=== PATIENT | male | born 1955 | race Caucasian/White ===

== ENCOUNTER 2018-09-12 16:54 | Inpatient (IN) ==
[2018-09-12] MEDS ORDERED: FAMOTIDINE 20MG/5ML IV PUSH IV STA (17:09)
[2018-09-12] MEDS ORDERED: METOCLOPRAMIDE HCL INJ 5 MG/ML 2 ML VIAL IV STA (17:09)
[2018-09-12] MEDS ORDERED: GI COCKTAIL ED USE PO ONE (17:09)
[2018-09-12] MEDS ORDERED: SODIUM CHLORIDE 0.9% 1000ML 1,000 ML IV SCH (17:15)
--- NOTE | 2018-09-12 17:23 | Emergency Department Note ---
Entered by Nigel Vazquez acting as a scribe for History of Present Illness General Chief complaint: Chest Pain Stated complaint: chest pain Time Seen by Provider: 09/12/18 17:05 Source: patient, family and EMS History of Present Illness Provider complaint: Chest pain Onset (ago): hour(s) (Just prior to arrival) Location: chest Radiation: non-radiation Pain Consistency: + constant Maximum Pain Intensity: 9 Current Pain Intensity: 10 Quality: + other (Pressure) Relieved By: + none Exacerbated By: + none Associated symptoms: + diaphoresis The patient is a 62 year old male who presents to the Emergency Room via EMS with complaints of constant left sided chest pain that started just prior to arrival. The patient describes the pain as a pressure and rates it 10/10. Per the nursing note, the patient was at the [employer] and had about 5 beers when suddenly he developed severe chest pain and slumped over at the bar. The pain does not radiate anywhere. Per EMS, when they first arrived at the [facility] the patient was very diaphoretic. The patient received one dose of Nitroglycerin and one 81mg Aspirin while en route with EMS which did slightly help relieve his pain. The patient notes he has had these symptoms in the past, which ended with getting his gallbladder removed. He states he felt fine prior to going to the [facility] and has not had any recent illnesses. The patient has no history of reflux or myocardial infarctions. Per his , he does drink alcohol regular an d chews tobacco. Home Medications Home Medications Medication Instructions Recorded Confirmed Type acetaminophen [Tylenol Extra 100 mg PO TID PRN 09/12/18 09/12/18 History Strength] atorvastatin 10 mg PO DAILY 09/12/18 09/12/18 History fluoxetine [Prozac] 40 mg PO DAILY 09/12/18 09/12/18 History lisinopril [Zestril] 20 mg PO DAILY 09/12/18 09/12/18 History metoprolol succinate [Toprol XL] 50 mg PO DAILY 09/12/18 09/12/18 History Allergies Allergy/AdvReac Type Severity Reaction Status Date / Time No Known Allergies Allergy Mild Verified 09/12/18 17:39 Past Med/Surg History Medical History Alcohol use (Chronic) Tobacco use (Chronic) Depression (Chronic) HTN (hypertension) (Chronic) Dyslipidemia (Chronic) Surgical History History of back surgery (Chronic) S/P laparoscopic cholecystectomy (Chronic) S/P tonsillectomy (Chronic) H/O vasectomy (Chronic) H/O arthroscopy of knee (Chronic) Family History Uncle Coronary heart disease Father Stroke Social History Preferred Language: [place] Communication Ability: Effective System Support Technician Required: No Beliefs That Will Affect Care: None Current Living Situation: Spouse Feels Safe at Home: Yes Safety Concerns: Feels Safe At This Time Smoking Status: Never smoker Tobacco Type: smokeless tobacco Do You Dip or Chew Tobacco: Yes (2 CANS / WEEK) Hx Alcohol Use: Yes Alcohol type: beer Hx Substance Use: Yes substance use type: marijuana Substance Use Type Other:: OCCASIONALLY Last Used Substance: Days (ago) Review of Systems See HPI for pertinent positives & negatives. and A total of 10 systems reviewed and were otherwise negative Physical Exam Vital Signs Vital Signs - 24 hr 09/12/18 16:56 09/12/18 17:01 09/12/18 17:05 Temperature 36.5 C Temperature Source Oral Sepsis Recent Fever Within 48 Hours No Sepsis Action Taken by Nursing No Action Required Pulse Rate 58 L 57 L 62 Pulse Rate [Finger] Pulse Rate from SpO2 Sensor 57 L 60 Pulse Rhythm [Finger] Pulse Strength [Finger] Respiratory Rate 17 22 20 Respiratory Effort / Characteristics Respiratory Depth Respiratory Pattern Blood Pressure 123/73 117/70 Blood Pressure [Left Arm] Blood Pressure Mean 89 85 Blood Pressure Mean [Left Arm] Blood Pressure Position [Left Arm] Pulse Oximetry 100 100 100 Oxygen Delivery Method Room Air 09/12/18 17:06 09/12/18 17:15 09/12/18 17:26 Temperature Temperature Source Sepsis Recent Fever Within 48 Hours Sepsis Action Taken by Nursing Pulse Rate 55 L 59 L Pulse Rate [Finger] Pulse Rate from SpO2 Sensor Pulse Rhythm [Finger] Pulse Strength [Finger] Respiratory Rate 21 Respiratory Effort / Characteristics Respiratory Depth Respiratory Pattern Blood Pressure 125/74 Blood Pressure [Left Arm] Blood Pressure Mean 91 Blood Pressure Mean [Left Arm] Blood Pressure Position [Left Arm] Pulse Oximetry 99 100 Oxygen Delivery Method Room Air Room Air 09/12/18 17:27 09/12/18 17:30 09/12/18 17:31 Temperature Temperature Source Sepsis Recent Fever Within 48 Hours Sepsis Action Taken by Nursing Pulse Rate 55 L 56 L Pulse Rate [Finger] 59 L Pulse Rate from SpO2 Sensor Pulse Rhythm [Finger] Pulse Strength [Finger] Respiratory Rate 17 16 15 Respiratory Effort / Characteristics Respiratory Depth Respiratory Pattern Blood Pressure 133/81 Blood Pressure [Left Arm] 125/74 Blood Pressure Mean 98 Blood Pressure Mean [Left Arm] 91 Blood Pressure Position [Left Arm] Pulse Oximetry 99 Oxygen Delivery Method Room Air 09/12/18 17:45 09/12/18 17:46 09/12/18 18:00 Temperature Temperature Source Sepsis Recent Fever Within 48 Hours Sepsis Action Taken by Nursing Pulse Rate 57 L 58 L 57 L Pulse Rate [Finger] Pulse Rate from SpO2 Sensor Pulse Rhythm [Finger] Pulse Strength [Finger] Respiratory Rate 18 13 15 Respiratory Effort / Characteristics Respiratory Depth Respiratory Pattern Blood Pressure 123/73 112/69 Blood Pressure [Left Arm] Blood Pressure Mean 89 83 Blood Pressure Mean [Left Arm] Blood Pressure Position [Left Arm] Pulse Oximetry Oxygen Delivery Method 09/12/18 18:01 09/12/18 18:15 09/12/18 18:16 Temperature Temperature Source Sepsis Recent Fever Within 48 Hours Sepsis Action Taken by Nursing Pulse Rate 58 L 59 L 57 L Pulse Rate [Finger] Pulse Rate from SpO2 Sensor Pulse Rhythm [Finger] Pulse Strength [Finger] Respiratory Rate 15 13 11 L Respiratory Effort / Characteristics Respiratory Depth Respiratory Pattern Blood Pressure 120/73 Blood Pressure [Left Arm] Blood Pressure Mean 88 Blood Pressure Mean [Left Arm] Blood Pressure Position [Left Arm] Pulse Oximetry Oxygen Delivery Method 09/12/18 18:30 09/12/18 18:31 09/12/18 18:45 Temperature Temperature Source Sepsis Recent Fever Within 48 Hours Sepsis Action Taken by Nursing Pulse Rate 56 L 57 L 57 L Pulse Rate [Finger] Pulse Rate from SpO2 Sensor Pulse Rhythm [Finger] Pulse Strength [Finger] Respiratory Rate 10 L 13 14 Respiratory Effort / Characteristics Respiratory Depth Respiratory Pattern Blood Pressure 111/71 105/70 Blood Pressure [Left Arm] Blood Pressure Mean 84 81 Blood Pressure Mean [Left Arm] Blood Pressure Position [Left Arm] Pulse Oximetry Oxygen Delivery Method 09/12/18 19:00 09/12/18 19:01 09/12/18 19:15 Temperature Temperature Source Sepsis Recent Fever Within 48 Hours Sepsis Action Taken by Nursing Pulse Rate 62 58 L 60 Pulse Rate [Finger] Pulse Rate from SpO2 Sensor 61 58 L 61 Pulse Rhythm [Finger] Pulse Strength [Finger] Respiratory Rate 14 14 22 Respiratory Effort / Characteristics Respiratory Depth Respiratory Pattern Blood Pressure 120/73 120/76 Blood Pressure [Left Arm] Blood Pressure Mean 88 90 Blood Pressure Mean [Left Arm] Blood Pressure Position [Left Arm] Pulse Oximetry 98 98 99 Oxygen Delivery Method 09/12/18 19:30 09/12/18 19:31 09/12/18 20:00 Temperature Temperature Source Sepsis Recent Fever Within 48 Hours Sepsis Action Taken by Nursing Pulse Rate 62 64 59 L Pulse Rate [Finger] Pulse Rate from SpO2 Sensor Pulse Rhythm [Finger] Pulse Strength [Finger] Respiratory Rate 23 19 22 Respiratory Effort / Characteristics Respiratory Depth Respiratory Pattern Blood Pressure 129/77 Blood Pressure [Left Arm] Blood Pressure Mean 94 Blood Pressure Mean [Left Arm] Blood Pressure Position [Left Arm] Pulse Oximetry Oxygen Delivery Method 09/12/18 20:30 09/12/18 20:48 09/12/18 21:05 Temperature 36.7 C Temperature Source Oral Sepsis Recent Fever Within 48 Hours Sepsis Action Taken by Nursing Pulse Rate 58 L 58 L Pulse Rate [Finger] 57 L Pulse Rate from SpO2 Sensor 60 Pulse Rhythm [Finger] Regular Pulse Strength [Finger] Normal Respiratory Rate 15 16 15 Respiratory Effort / Characteristics Non-Labored Spontaneous Respiratory Depth Normal Respiratory Pattern Regular Blood Pressure 129/77 Blood Pressure [Left Arm] 148/82 H Blood Pressure Mean Blood Pressure Mean [Left Arm] 104 Blood Pressure Position [Left Arm] Sitting Pulse Oximetry 97 98 97 Oxygen Delivery Method Room Air Room Air 09/12/18 22:00 09/12/18 22:21 09/13/18 03:59 Temperature 36.7 C Temperature Source Oral Sepsis Recent Fever Within 48 Hours Sepsis Action Taken by Nursing Pulse Rate 58 L 72 Pulse Rate [Finger] 58 L Pulse Rate from SpO2 Sensor Pulse Rhythm [Finger] Pulse Strength [Finger] Respiratory Rate 18 Respiratory Effort / Characteristics Respiratory Depth Respiratory Pattern Blood Pressure Blood Pressure [Left Arm] 152/88 H Blood Pressure Mean Blood Pressure Mean [Left Arm] 109 Blood Pressure Position [Left Arm] Pulse Oximetry 96 Oxygen Delivery Method Room Air GENERAL: Awake, alert, uncomfortable-appearing, in no distress HENT: Normocephalic, atraumatic. Oropharynx with dry mucous membranes and otherwise unremarkable. EYES: Normal conjunctiva. Sclera non-icteric. NECK: Supple. No nuchal rigidity. FROM. No JVD. RESPIRATORY: Clear to auscultation. CARDIAC: Regular rate, normal rhythm. Extremities warm and well perfused. Pulses equal. ABDOMEN: Soft, non-distended. Mild epigastric tenderness. No rebound or guarding. No masses. RECTAL: Deferred. MUSCULOSKELETAL: Chest examination reveals no tenderness. The back is symmetrical on inspection without obvious abnormality. There is no CVA tenderness to palpation. No joint edema. LOWER EXTREMITIES: Calves are equal size bilaterally and non-tender. No edema. No discoloration. NEURO: Normal sensorium. No sensory or motor deficits noted. SKIN: No rash or jaundice noted. Course 170: The patient was evaluated in room C02B, and a complete history and physical examination were performed. 7: I reevaluated the patient and he is feeling much better. 1905: Dr. Rosario Fajardo Hospitalist was made aware of the patient and he will be accepting him for further evaluation. Consultations Consultation #1: Dr. Rosario Fajardo Hospitalist was made aware of the patient and he will be accepting him for further evaluation. Time: 19:05 Administered Medications Gabapentin (Neurontin) 600 mg PO Q6H SOPHIA Stop: 09/13/18 09:30 Last Admin: 09/13/18 03:17 Dose: 600 mg Documented by: [id number] Potassium Chloride/Sodium Chloride (Normal Saline W/20 Meq Kcl) 20 meq in 1,000 mls @ 75 mls/hr IV .[id number] STA Stop: 09/13/18 10:47 Last Admin: 09/12/18 21:59 Dose: 75 mls/hr Documented by: [id number] Morphine Sulfate (Morphine Sulfate) 2 mg IV Q4H PRN PRN Reason: Pain Stop: 09/26/18 21:27 Last Admin: 09/13/18 03:20 Dose: 2 mg Documented by: [id number] Oxycodone HCl (Roxicodone Immediate Rel) 5 mg PO Q4H PRN PRN Reason: Pain Stop: 09/26/18 21:27 Last Admin: 09/13/18 01:54 Dose: 5 mg Documented by: [id number] Admin: 09/12/18 21:58 Dose: 5 mg Documented by: [id number] Discontinued Medications Al Hydrox/Mg Hydrox/Simethicone () 1 dose PO ONE ONE Stop: 09/12/18 17:10 Last Admin: 09/12/18 17:23 Dose: 1 dose Documented by: [id number] Famotidine (Pepcid 20mg Iv Push) 20 mg IV ONE STA Stop: 09/12/18 17:10 Last Admin: 09/12/18 17:23 Dose: 20 mg Documented by: [id number] Gabapentin (Neurontin) 1,200 mg PO TODAY@2145 SOPHIA Stop: 09/12/18 21:46 Last Admin: 09/12/18 22:19 Dose: 1,200 mg Documented by: [id number] Sodium Chloride (Nss 1000ml) 1,000 mls @ 999 mls/hr IV .Q1H1M SOPHIA Stop: 09/12/18 18:15 Last Infusion: 09/12/18 18:23 Dose: 0 mls/hr Documented by: [id number] Admin: 09/12/18 17:23 Dose: 999 mls/hr Documented by: [id number] Multivitamins 10 ml/ Thiamine HCl 100 mg/ Folic Acid 1 mg/Sodium Chloride 1,011.2 mls @ 1,011.2 mls/hr IV .Q1H STA Stop: 09/12/18 18:52 Last Infusion: 09/12/18 19:18 Dose: 0 mls/hr Documented by: [id number] Admin: 09/12/18 18:08 Dose: 1,011.2 mls/hr Documented by: [id number] Potassium Phosphate 15 mmol/ (Sodium Chloride) 255 mls @ 88 mls/hr IV NOW ONE Stop: 09/12/18 21:23 Last Admin: 09/12/18 18:46 Dose: Not Given Documented by: [id number] Potassium Phosphate 30 mmol/ (Sodium Chloride) 510 mls @ 100 mls/hr IV ONE ONE Stop: 09/13/18 03:35 Last Admin: 09/12/18 22:32 Dose: 100 mls/hr Documented by: [id number] Metoclopramide HCl (Reglan) 10 mg IV NOW STA Stop: 09/12/18 17:10 Last Admin: 09/12/18 17:23 Dose: 10 mg Documented by: [id number] Pantoprazole Sodium (Protonix) 40 mg PO NOW STA Stop: 09/12/18 20:12 Last Admin: 09/12/18 20:25 Dose: 40 mg Documented by: [id number] Potassium Chloride (Klor-Con M20) 40 meq PO NOW STA Stop: 09/12/18 19:37 Last Admin: 09/12/18 20:25 Dose: 40 meq Documented by: [id number] Potassium Phosphate (Potassium Phosphate Replace) 15 mmol IV NOW STA Stop: 09/12/18 18:03 Last Admin: 09/12/18 18:26 Dose: 15 mmol Documented by: [id number] Medical Decision Making Differential Diagnosis Differential diagnoses includes but is not limited to acute coronary syndrome, myocardial infarction, pericarditis, pulmonary embolus, aortic dissection, pneumonia, pneumothorax, musculoskeletal, shingles, esophageal. Medical Records Attestation: I reviewed the patient's medical records. Home Medications Current Medication List: was personally reviewed by me Laboratory Data Attestation: I reviewed the patient's lab results. Result diagrams: 09/12/18 16:54 09/12/18 16:54 Lab Results 09/12/18 09/12/18 09/12/18 Range/Units 16:54 16:54 16:54 WBC 9.95 (4.8-10.8) K/uL RBC 4.77 (4.7-6.1) M/uL Hgb 15.4 (14.0-18.0) g/dL Hct 42.8 (42-52) % MCV 89.7 (80-100) fL MCH 32.3 (25-34) pg MCHC 36.0 (32-36) g/dL RDW Std Deviation 42.4 (36.4-46.3) fL RDW Coeff of Panda 12.8 (11.5-14.5) % Plt Count 307 (130-400) K/uL MPV 10.2 (7.4-10.4) fL Immature Gran % (Auto) 0.3 % Neut % (Auto) 53.5 % Lymph % (Auto) 33.3 % Emmons % (Auto) 10.7 % Eos % (Auto) 1.9 % Baso % (Auto) 0.3 % Immature Gran # (Auto) 0.03 H (0.00-0.02) K/uL Neut # (Auto) 5.33 (1.4-6.5) K/uL Lymph # (Auto) 3.31 (1.2-3.4) K/uL Emmons # (Auto) 1.06 H (0.11-0.59) K/uL Eos # (Auto) 0.19 (0-0.5) K/uL Baso # (Auto) 0.03 (0-0.2) K/uL PT 10.4 (9.0-12.0) Seconds INR 1.0 (0.9-1.1) APTT (21.0-31.0) Seconds PTT Ratio Sodium 136 (136-145) mmol/L Potassium 3.1 L (3.5-5.1) mmol/L Chloride 102 (98-107) mmol/L Carbon Dioxide 19 L (21-32) mmol/L Anion Gap 16.0 H (3-11) BUN 13 (7-18) mg/dl Creatinine 0.99 (0.6-1.4) mg/dl Est Cr Clr Drug Dosing 80.9 ml/min Est GFR ( Amer) 92.9 Est GFR (Non-Af Amer) 80.2 BUN/Creatinine Ratio 13.2 (10-20) Glucose 88 (70-99) mg/dl Calcium 9.6 (8.5-10.1) mg/dl Phosphorus 0.8 L* (2.5-4.9) mg/dl Magnesium 2.3 (1.8-2.4) mg/dl Total Bilirubin 0.5 (0.2-1) mg/dl Direct Bilirubin 0.1 (0-0.2) mg/dl AST 93 H (15-37) U/L ALT 39 (12-78) U/L Alkaline Phosphatase 85 (45-117) U/L Total Creatine Kinase 118 (39-308) U/L POC Troponin I (0-0.045) ng/ml Troponin I < 0.015 (0-0.045) ng/ml Total Protein 7.6 (6.4-8.2) gm/dl Albumin 4.1 (3.4-5.0) gm/dl Globulin 3.5 (2.5-4.0) gm/dl Albumin/Globulin Ratio 1.2 (0.9-2) Lipase 174 (73-393) U/L Folate (>5.38) ng/ml TSH 3.170 (0.300-4.500) uIu/ml Urine Color Urine Appearance (Clear) Urine pH (4.5-7.5) Ur Specific [place] (1.000-1.030) Urine Protein (Negative) Urine Glucose (UA) (Negative) Urine Ketones (Negative) Urine Blood (Negative) Urine Nitrite (Negative) Urine Bilirubin (Negative) Urine Urobilinogen (Negative) Ur Leukocyte Esterase (Negative) Urine Opiates Screen (Neg) Ur Methadone, Qual (Neg) Urine Barbiturates (Neg) Ur Phencyclidine (PCP) (Neg) U Amphetamin/Meth Scrn (Neg) MDMA (Ecstasy) Screen (Neg) U Benzodiazepines Scrn (Neg) Ur Cocaine Metabolite (Neg) U Marijuana (THC) Screen (Neg) Ethyl Alcohol mg/dL (0-3) mg/dl 09/12/18 09/12/18 09/12/18 Range/Units 16:54 17:00 18:18 WBC (4.8-10.8) K/uL RBC (4.7-6.1) M/uL Hgb (14.0-18.0) g/dL Hct (42-52) % MCV (80-100) fL MCH (25-34) pg MCHC (32-36) g/dL RDW Std Deviation (36.4-46.3) fL RDW Coeff of Panda (11.5-14.5) % Plt Count (130-400) K/uL MPV (7.4-10.4) fL Immature Gran % (Auto) % Neut % (Auto) % Lymph % (Auto) % Emmons % (Auto) % Eos % (Auto) % Baso % (Auto) % Immature Gran # (Auto) (0.00-0.02) K/uL Neut # (Auto) (1.4-6.5) K/uL Lymph # (Auto) (1.2-3.4) K/uL Emmons # (Auto) (0.11-0.59) K/uL Eos # (Auto) (0-0.5) K/uL Baso # (Auto) (0-0.2) K/uL PT (9.0-12.0) Seconds INR (0.9-1.1) APTT 21.7 (21.0-31.0) Seconds PTT Ratio 0.8 Sodium (136-145) mmol/L Potassium (3.5-5.1) mmol/L Chloride (98-107) mmol/L Carbon Dioxide (21-32) mmol/L Anion Gap (3-11) BUN (7-18) mg/dl Creatinine (0.6-1.4) mg/dl Est Cr Clr Drug Dosing ml/min Est GFR ( Amer) Est GFR (Non-Af Amer) BUN/Creatinine Ratio (10-20) Glucose (70-99) mg/dl Calcium (8.5-10.1) mg/dl Phosphorus (2.5-4.9) mg/dl Magnesium (1.8-2.4) mg/dl Total Bilirubin (0.2-1) mg/dl Direct Bilirubin (0-0.2) mg/dl AST (15-37) U/L ALT (12-78) U/L Alkaline Phosphatase (45-117) U/L Total Creatine Kinase (39-308) U/L POC Troponin I < 0.03 (0-0.045) ng/ml Troponin I (0-0.045) ng/ml Total Protein (6.4-8.2) gm/dl Albumin (3.4-5.0) gm/dl Globulin (2.5-4.0) gm/dl Albumin/Globulin Ratio (0.9-2) Lipase (73-393) U/L Folate (>5.38) ng/ml TSH (0.300-4.500) uIu/ml Urine Color Urine Appearance (Clear) Urine pH (4.5-7.5) Ur Specific [place] (1.000-1.030) Urine Protein (Negative) Urine Glucose (UA) (Negative) Urine Ketones (Negative) Urine Blood (Negative) Urine Nitrite (Negative) Urine Bilirubin (Negative) Urine Urobilinogen (Negative) Ur Leukocyte Esterase (Negative) Urine Opiates Screen (Neg) Ur Methadone, Qual (Neg) Urine Barbiturates (Neg) Ur Phencyclidine (PCP) (Neg) U Amphetamin/Meth Scrn (Neg) MDMA (Ecstasy) Screen (Neg) U Benzodiazepines Scrn (Neg) Ur Cocaine Metabolite (Neg) U Marijuana (THC) Screen (Neg) Ethyl Alcohol mg/dL 81.3 H (0-3) mg/dl 09/12/18 09/13/18 09/13/18 Range/Units 21:48 01:50 01:50 WBC (4.8-10.8) K/uL RBC (4.7-6.1) M/uL Hgb (14.0-18.0) g/dL Hct (42-52) % MCV (80-100) fL MCH (25-34) pg MCHC (32-36) g/dL RDW Std Deviation (36.4-46.3) fL RDW Coeff of Panda (11.5-14.5) % Plt Count (130-400) K/uL MPV (7.4-10.4) fL Immature Gran % (Auto) % Neut % (Auto) % Lymph % (Auto) % Emmons % (Auto) % Eos % (Auto) % Baso % (Auto) % Immature Gran # (Auto) (0.00-0.02) K/uL Neut # (Auto) (1.4-6.5) K/uL Lymph # (Auto) (1.2-3.4) K/uL Emmons # (Auto) (0.11-0.59) K/uL Eos # (Auto) (0-0.5) K/uL Baso # (Auto) (0-0.2) K/uL PT (9.0-12.0) Seconds INR (0.9-1.1) APTT (21.0-31.0) Seconds PTT Ratio Sodium (136-145) mmol/L Potassium (3.5-5.1) mmol/L Chloride (98-107) mmol/L Carbon Dioxide (21-32) mmol/L Anion Gap (3-11) BUN (7-18) mg/dl Creatinine (0.6-1.4) mg/dl Est Cr Clr Drug Dosing ml/min Est GFR ( Amer) Est GFR (Non-Af Amer) BUN/Creatinine Ratio (10-20) Glucose (70-99) mg/dl Calcium (8.5-10.1) mg/dl Phosphorus (2.5-4.9) mg/dl Magnesium (1.8-2.4) mg/dl Total Bilirubin (0.2-1) mg/dl Direct Bilirubin (0-0.2) mg/dl AST (15-37) U/L ALT (12-78) U/L Alkaline Phosphatase (45-117) U/L Total Creatine Kinase (39-308) U/L POC Troponin I (0-0.045) ng/ml Troponin I (0-0.045) ng/ml Total Protein (6.4-8.2) gm/dl Albumin (3.4-5.0) gm/dl Globulin (2.5-4.0) gm/dl Albumin/Globulin Ratio (0.9-2) Lipase (73-393) U/L Folate > 24.00 (>5.38) ng/ml TSH (0.300-4.500) uIu/ml Urine Color Yellow Urine Appearance Clear (Clear) Urine pH 5.5 (4.5-7.5) Ur Specific [place] 1.011 (1.000-1.030) Urine Protein Negative (Negative) Urine Glucose (UA) Negative (Negative) Urine Ketones Negative (Negative) Urine Blood Negative (Negative) Urine Nitrite Negative (Negative) Urine Bilirubin Negative (Negative) Urine Urobilinogen Negative (Negative) Ur Leukocyte Esterase Negative (Negative) Urine Opiates Screen Pos H (Neg) Ur Methadone, Qual Neg (Neg) Urine Barbiturates Neg (Neg) Ur Phencyclidine (PCP) Neg (Neg) U Amphetamin/Meth Scrn Neg (Neg) MDMA (Ecstasy) Screen Neg (Neg) U Benzodiazepines Scrn Neg (Neg) Ur Cocaine Metabolite Neg (Neg) U Marijuana (THC) Screen Neg (Neg) Ethyl Alcohol mg/dL (0-3) mg/dl Imaging Data Radiologist's Impression: Radiology results as stated below per my review and the radiologist's interpretation: XR chest 1V portable HISTORY: 62 years-old Male Chest Pain acute atypical chest pain COMPARISON: Chest radiograph 10/20/2017 TECHNIQUE: Portable AP view of the chest FINDINGS: Cardiac silhouette is mildly enlarged, unchanged. Scattered calcified chen limit redemonstrated. Calcification about the thoracic aortic arch. There is no pneumothorax, pleural effusion, focal airspace consolidation or overt pulmonary edema. Degenerative changes of the shoulders and spine. IMPRESSION: No acute process. The above report was generated using voice recognition software. It may contain grammatical, syntax or spelling errors. Electronically signed by: Panchito Vogel M.D. 09/12/2018 6:22 PM ECG Data Attestation: I personally reviewed and interpreted this ECG as follows: Indication: chest pain Rate (beats per minute): 58 Rhythm: sinus bradycardia Findings: + other (Normal axis); no acute ischemic change Blood Pressure Blood Pressure Findings: Normal blood pressure Blood Pressure Disposition: further management by hospitalist RACHELLE Narrative The patient is a pleasant 62-year-old gentleman with a past medical history of hypertension hyperlipidemia who presents emergency department with acute onset chest pain when he was at the [employer] and had per report, had 5 beers per hpi. She reports he drinks 5 beers fairly regularly though not every day and the l ast time he drank was 2 days ago. Patient denies any symptoms of alcohol withdrawal though he has not gone more than 2-3 days without drinking alcohol in the past year. The patient reports he had similar symptoms such as this when he had his gallbladder out years ago. On arrival patient is uncomfortable but no acute distress, afebrile stable vital signs. The patient appears clinically dry. He has mild epigastric tenderness without peritoneal signs. EKG unremarkable without evidence of acute ischemia. CXR negative pna or free air. WBC, H/H, platelets wnl. Chemistry with mild anion gap acidosis with bicarb of 19 and anion gap of 16. Glucose within normal limits. Creatinine within normal limits. Phosphorus is severely low at 0.8 and potassium 3.1 with repletion initiated. LFTs demonstrate alcoholic pattern with AST 93 and ALT 39. Otherwise, electrolytes unremarkable. Troponin negative. Patient feeling significantly improved after IV fluid hydration, Pepcid, GI cocktail, Reglan, banana bag and initiation of phosphorus repletion. Sx and lab results suggestive of alcoholic ketoacidosis/gastritis. Findings were reviewed with the patient including the likely etiology of his regular alcohol use. Patient preferring admission for further treatment of his alcoholic ketoacidosis/gastritis in addition to phosphorus repletion. Case was discussed with Kimber Amaya, [facility], who evaluate the patient for admission. Impression & Plan Alcoholic ketoacidosis, Alcoholic gastritis, Hypophosphatemia Critical Care Time I have personally spent greater than 35 minutes of critical care time in the direct management of this patient. This includes bedside care, interpretation of diagnostic studies, and testing, discussion with consultants, patient, and family members, and other required patient management activities. This 35 minutes is in excess of all separately billable procedures. Critical Care Time: Yes Total Critical Care Time: 35 Discharge Plan Visit Data *Final* Discharge Date/Time: 09/12/18 21:05 Chief Complaint: Chest Pain Stated Complaint: chest pain ED Provider: Edd Vazquez Discharge Problem: Alcoholic ketoacidosis, Alcoholic gastritis, Hypophosphatemia Patient Disposition: Admitted As Inpatient Discharge Instructions Interventions: ED Discharge Assessment Last Done: 09/12/18 21:05 Discharge Problem: Alcoholic gastritis Qualifiers: Chronicity: unspecified Gastritis bleeding: without bleeding Qualified Code(s): K29.20 - Alcoholic gastritis without bleeding The scribe's documentation has been prepared under my direction and personally reviewed by me in its entirety. I confirm that the note above accurately reflects all work, treatment, procedures, and medical decision making performed by me.
[2018-09-12 17:28] LABS: Basophils # (auto) 0.03 K/uL (0-0.2); Basophils % (auto) 0.3 %; Eosinophils # (auto) 0.19 K/uL (0-0.5); Eosinophils % (auto) 1.9 %; Hematocrit (blood only) 42.8 % (42-52); Hemoglobin 15.4 g/dL (14.0-18.0); Immature Granulocytes # (auto) 0.03 K/uL (0.00-0.02); Immature Granulocytes % (auto) 0.3 %; Lymphocytes # (auto) 3.31 K/uL (1.2-3.4); Lymphocytes % (auto) 33.3 %; Mean Corpuscular Volume 89.7 fL (80-100); Mean Platelet Volume 10.2 fL (7.4-10.4); Monocytes # (auto) 1.06 K/uL (0.11-0.59); Monocytes % (auto) 10.7 %; Neutrophils # (auto) 5.33 K/uL (1.4-6.5); Neutrophils % (auto) 53.5 %; Platelet Count 307 K/uL (130-400); RDW Coefficient of Variation 12.8 % (11.5-14.5); RDW Standard Deviation 42.4 fL (36.4-46.3); Red Blood Count 4.77 M/uL (4.7-6.1); White Blood Count 9.95 K/uL (4.8-10.8)
[2018-09-12 17:40] LABS: Prothrombin Time 10.4 Seconds (9.0-12.0)
[2018-09-12 17:49] LABS: Alanine Aminotransferase 39 U/L (12-78); Albumin Level 4.1 gm/dl (3.4-5.0); Aspartate Aminotransferase 93 U/L (15-37); BUN Creatinine Ratio 13.2 (10-20); Bilirubin Direct 0.1 mg/dl (0-0.2); Blood Urea Nitrogen 13 mg/dl (7-18); Calcium 9.6 mg/dl (8.5-10.1); Carbon Dioxide 19 mmol/L (21-32); Chloride 102 mmol/L (98-107); Creatinine Clr Calc Pharmacy 80.9 ml/min; Est GFR (African American) 92.9; Est GFR (Non-African American) 80.2; Glucose 88 mg/dl (70-99); Magnesium 2.3 mg/dl (1.8-2.4); Potassium 3.1 mmol/L (3.5-5.1); Sodium 136 mmol/L (136-145)
[2018-09-12] MEDS ORDERED: MULTI-VITAMIN INFUSION 10 ML, THIAMINE HCL 100 MG, FOLIC ACID 1 MG in SODIUM CHLORIDE 0... IV STA (17:53)
[2018-09-12 18:00] LABS: Albumin Globulin Ratio 1.2 (0.9-2); Alkaline Phosphatase 85 U/L (45-117); Bilirubin,Total 0.5 mg/dl (0.2-1); Globulin 3.5 gm/dl (2.5-4.0); Phosphorus 0.8 mg/dl (2.5-4.9); Total Protein 7.6 gm/dl (6.4-8.2); Troponin I < 0.015 ng/ml (0-0.045)
[2018-09-12] MEDS ORDERED: POTASSIUM PHOS 3 MMOL/1 ML INFUSION IV STA ×2 (18:02→22:05)
--- NOTE | 2018-09-12 18:23 | XRay Report ---
XR chest 1V portable HISTORY: 62 years-old Male Chest Pain acute atypical chest pain COMPARISON: Chest radiograph 10/20/2017 TECHNIQUE: Portable AP view of the chest FINDINGS: Cardiac silhouette is mildly enlarged, unchanged. Scattered calcified chen limit redemonstrated. Calc ification about the thoracic aortic arch. There is no pneumothorax, pleural effusion, focal airspace consolidation or overt pulmonary edema. Degenerative changes of the shoulders and spine. IMPRESSION: No acute process. The above report was generated using voice recognition software. It may contain grammatical, syntax o r spelling errors. Electronically signed by: Panchito Vogel M.D. 09/12/2018 6:22 PM
[2018-09-12] MEDS ORDERED: POTASSIUM PHOSPHATE 15 MMOL in SODIUM CHLORIDE 0.9% 250 ML IV ONE (18:30)
[2018-09-12] MEDS ORDERED: POTASSIUM CHLORIDE 20 MEQ TABCR PO STA (19:36)
--- NOTE | 2018-09-12 19:39 | History & Physical Report ---
Date of Service September 12, 2018 Assessment & Plan (1) Chest pain: Pt presented to ER with c/o non-radiating mid CP described as pressure with associated nausea. Denies dizziness, SOB. After onset of CP pt reports fatigue and felt "too tired to talk". It is reported pt was given nitro by EMS and upon ER arrival was given mylanta, pepcid and reglan with relief of pain. Initial troponin negative. No leukocytosis, H/H: 15/42, INR: 1.0, Na: 136, K: 3.1, Cl: 102, CO2: 19, A, gluc: 88, magnesium: 2.3, phosphorus: 0.8, BUN: 13, Cr: 0.99, GFR: 80 Chest pain R/O ACS. Risk factors: HTN, hyperlipidemia. DDX: GERD/esophagitis -further plan per attending physician (2) Hypophosphatemia: phosphorus: 0.9 -In ER was given potassium phosphorus 15mmol (3) Hypokalemia: K: 3.1 -In ER was given potassium phosphorus 15mmol (4) Alcohol use: Reported had 4-5 beers today. ETOH 81 States drinks approx 5 beers/day multiple times a week. Denies hx ETOH withdrawal or seizures AST: 93, ALT: 39, Alk Phos: 85, total bili: 0.5 -In ER was given 1LNSS, banana bag (5) HTN (hypertension): On lisinopril and metoprolol at home (6) Dyslipidemia: On atorvastatin (7) Depression: On fluoxetine (8) Tobacco use: Chews 2 cans snuff a week Follows with Dr Phillips for routine care Pt was seen with Dr Ponce. See addendum for further assessment and plan. History of Present Illness Chief Complaint: CP Primary Care Provider: Moris Phillips MD Pt is 62 y/o M with PMH HTN, dyslipidemia, tobacco use, ETOH use presented to ER with c/o CP. Pt states was sitting and had 4-5 beers when he developed mid CP described as pressure. Pt states had CP for approx 20 minutes and then felt tired and felt "too tired to talk". CP was non-radiating and denies dizziness, SOB. Pt unsure if he was diaphoretic, reports had some nausea. Pt reports EMS pu shed on mid/lower chest and that increased pain. It is reported pt was given nitro by EMS and upon ER arrival was given mylanta, pepcid and reglan with relief of pain. Denies heartburn sensation. Pt reports drinks 5 beers most days of the week. He denies hx alcohol withdrawal or seizures. Drinks 20 ounces of coffee a day. Denies aspirin, NSAID use. Denies fever/chills, V/D/C, LAND, dizziness, syncope, vision changes, neck pain, orthopnea, palpitations, cough, sore throat, choking, otalgia, rhinorrhea, abdominal pain, paresthesias, weakness, extremity weakness, extremity edema, rashes, urinary symptoms. Allergies Allergy/AdvReac Type Severity Reaction Status Date / Time No Known Allergies Allergy Mild Verified 09/12/18 17:39 Home Medications Home Medications Medication Instructions Recorded Confirmed Type acetaminophen [Tylenol Extra 100 mg PO TID PRN 09/12/18 09/12/18 History Strength] atorvastatin 10 mg PO DAILY 09/12/18 09/12/18 History fluoxetine [Prozac] 40 mg PO DAILY 09/12/18 09/12/18 History lisinopril [Zestril] 20 mg PO DAILY 09/12/18 09/12/18 History metoprolol succinate [Toprol XL] 50 mg PO DAILY 09/12/18 09/12/18 History Past Med/Surg History Medical History Alcohol use (Chronic) Tobacco use (Chronic) Depression (Chronic) HTN (hypertension) (Chronic) Dyslipidemia (Chronic) Surgical History History of back surgery (Chronic) S/P laparoscopic cholecystectomy (Chronic) S/P tonsillectomy (Chronic) H/O vasectomy (Chronic) H/O arthroscopy of knee (Chronic) Social History Preferred Language: Ethiopian Communication Ability: Effective Head Porter Required: No Beliefs That Will Affect Care: None Current Living Situation: Spouse Feels Safe at Home: Yes Safety Concerns: Feels Safe At This Time Smoking Status: Never smoker Tobacco Type: smokeless tobacco Do You Dip or Chew Tobacco: Yes (2 CANS / WEEK) Hx Alcohol Use: Yes Alcohol type: beer Hx Substance Use: Yes substance use type: marijuana Substance Use Type Other:: OCCASIONALLY Last Used Substance: Days (ago) Review of Systems Review of Systems: All systems reviewed & are unremarkable except as noted in HPI & below Physical Exam Physical Exam: General: no acute distress, WDWN Head: normocephalic, atraumatic Eyes: PERRL, EOM's intact, conjunctiva non-injected, anicteric ENT: normal inspection external ears, nose, mucous membranes moist; +ETOH odor on breath Neck: supple, trachea midline, non-tender Lungs: clear, no respiratory distress, no wheezing/rhonchi/rales CV: RRR, no murmur, no pretibial edema Abd: normal BS, soft, non-tender to palpation Ext: no cyanosis, no calf tenderness Neuro: A&O x 3, no focal deficits noted, normal affect Skin: warm, dry Results & Data Vital Signs (Past 12 Hours) Vital Signs Temp Pulse Pulse Resp BP BP Pulse Ox 09/12/18 18:15 59 L 13 120/73 09/12/18 18:01 58 L 15 09/12/18 18:00 57 L 15 112/69 09/12/18 17:46 58 L 13 09/12/18 17:45 57 L 18 123/73 09/12/18 17:31 56 L 15 133/81 09/12/18 17:30 55 L 16 09/12/18 17:27 59 L 17 125/74 99 09/12/18 17:26 59 L 100 09/12/18 17:15 55 L 21 125/74 09/12/18 17:06 99 09/12/18 17:05 62 20 100 09/12/18 17:01 57 L 22 117/70 100 09/12/18 16:56 36.5 C 58 L 17 123/73 100 Laboratory Results Short CBC 09/12/18 Range/Units 16:54 WBC 9.95 (4.8-10.8) K/uL Hgb 15.4 (14.0-18.0) g/dL Hct 42.8 (42-52) % Plt Count 307 (130-400) K/uL BMP 09/12/18 16:54 Sodium 136 Potassium 3.1 L Chloride 102 Carbon Dioxide 19 L BUN 13 Creatinine 0.99 Glucose 88 Calcium 9.6 Cardiac Enzymes 09/12/18 Range/Units 16:54 Troponin I < 0.015 (0-0.045) ng/ml Liver Function 09/12/18 Range/Units 16:54 Total Bilirubin 0.5 (0.2-1) mg/dl Direct Bilirubin 0.1 (0-0.2) mg/dl AST 93 H (15-37) U/L ALT 39 (12-78) U/L Alkaline Phosphatase 85 (45-117) U/L Albumin 4.1 (3.4-5.0) gm/dl Diagnostic Findings CXR: IMPRESSION: No acute process. Supervising Physician Co-Signing Physician Notes IM ATTENDING : Patient seen and examined. History obtained from patient and records. Preceding documentation by Ms. Angelita Amaya PA-C reviewed. FINAL ASSESSMENT AND PLAN as follows : Atypical chest pain likely from GERD/alcoholic gastritis Relief with GI cocktail given at the ER. Episodic decreased responsiveness Patient describes episodic events as "seizure-like episodes." Patient would not be able to talk or move for a few hours from time to time. Prior EEGs negative as per outpatient Neurology note from 2017. Differentials include : Alcoholic intoxication, arrhythmia (chronic bradycardia on beta-lencho), orthostasis Hypertension, stable Hypokalemia, hypophosphatemia, AGMA, clinical dehydration Alcohol abuse as per records Past tobacco abuse Medical telemetry Initiate daily PPI for possible gastritis Follow troponin, TTE chest pain Check orthostatic vitals, hold home beta-lencho for now, may need to discharge patient on lower dose IVF, replace electrolytes DT precautions PT OT eval DVT prophylaxis. Lovenox subcu Full code
[2018-09-12 20:06] LABS: Partial Thromboplastin Ratio 0.8; Partial Thromboplastin Time 21.7 Seconds (21.0-31.0)
[2018-09-12 20:07] LABS: Creatine Kinase 118 U/L (39-308)
[2018-09-12] MEDS ORDERED: PANTOprazole 40 MG TAB PO STA (20:11)
[2018-09-12] MEDS ORDERED: NSS + 20MEQ KCL 20 MEQ/1,000 ML BAG IV STA (21:28)
[2018-09-12] MEDS ORDERED: LORazepam 3 MG/6 ML VIAL IV PRN (21:28)
[2018-09-12] MEDS ORDERED: PROMETHAZINE HCL 12.5 MG in SODIUM CHLORIDE 0.9% 50 ML IV PRN (21:28)
[2018-09-12] MEDS ORDERED: LORazepam 2 MG/4 ML VIAL IV PRN (21:28)
[2018-09-12] MEDS ORDERED: GABAPENTIN 1200MG ALCOHOL WITHDRAWAL LOAD PO STA (21:28)
[2018-09-12] MEDS ORDERED: MoRPHine SULFATE 2 MG/ML CARP IV PRN (21:28)
[2018-09-12] MEDS ORDERED: LORazepam 1 MG/2 ML VIAL IV PRN (21:28)
[2018-09-12] MEDS ORDERED: ACETAMINOPHEN 325 MG TAB PO PRN (21:28)
[2018-09-12] MEDS ORDERED: ATIVAN IV ALCOHOL WITHDRAWL IV SCH (21:30)
[2018-09-12] MEDS ORDERED: GABAPENTIN 600 MG TAB PO SCH (21:45)
[2018-09-12] MEDS: OXYCODONE HCL IR 5 MG TAB (IMMEDIATE RELEASE) PO PRN (21:58)
[2018-09-12] MEDS ORDERED: POTASSIUM PHOSPHATE 30 MMOL in SODIUM CHLORIDE 0.9% 500 ML IV ONE (22:30)
[2018-09-13] MEDS: OXYCODONE HCL IR 5 MG TAB (IMMEDIATE RELEASE) PO PRN (01:54)
[2018-09-13 02:15] LABS: Appearance Urine Clear (Clear); Bilirubin Urine Negative (Negative); Blood Urine Negative (Negative); Color Urine Yellow; Glucose Urine UA Negative (Negative); Ketones Urine Negative (Negative); Leukocyte Esterase Urine Negative (Negative); Nitrite Urine Negative (Negative); Protein Urine Negative (Negative); Specific Gravity Urine 1.011 (1.000-1.030); Urobilinogen Urine Negative (Negative); pH Urine 5.5 (4.5-7.5)
[2018-09-13 02:42] LABS: Amphetamines+Metham, Urine Neg (Neg); Barbiturates, Urine Neg (Neg); Benzodiazepine, Urine Neg (Neg); Cocaine, Urine Neg (Neg); MDMA (Ecstacy), Urine Neg (Neg); Methadone, Urine Neg (Neg); Opiate, Urine Pos (Neg); Phencyclidine, Urine Neg (Neg)
[2018-09-13] MEDS: GABAPENTIN 600 MG TAB PO SCH ×3 (03:17→17:04)
[2018-09-13] MEDS ORDERED: POLYETHYLENE (MIRALAX) 17 GM PACK PO PRN (05:38)
[2018-09-13 07:12] LABS: Basophils # (auto) 0.02 K/uL (0-0.2); Basophils % (auto) 0.3 %; Eosinophils # (auto) 0.19 K/uL (0-0.5); Eosinophils % (auto) 2.5 %; Hematocrit (blood only) 36.3 % (42-52); Hemoglobin 12.4 g/dL (14.0-18.0); Immature Granulocytes # (auto) 0.01 K/uL (0.00-0.02); Immature Granulocytes % (auto) 0.1 %; Lymphocytes # (auto) 2.06 K/uL (1.2-3.4); Lymphocytes % (auto) 27.5 %; Mean Corpuscular Hgb Conc 34.2 g/dL (32-36); Mean Corpuscular Volume 91.9 fL (80-100); Mean Platelet Volume 9.9 fL (7.4-10.4); Monocytes # (auto) 0.84 K/uL (0.11-0.59); Monocytes % (auto) 11.2 %; Neutrophils # (auto) 4.37 K/uL (1.4-6.5); Neutrophils % (auto) 58.4 %; Platelet Count 196 K/uL (130-400); RDW Coefficient of Variation 13.1 % (11.5-14.5); RDW Standard Deviation 44.3 fL (36.4-46.3); Red Blood Count 3.95 M/uL (4.7-6.1); White Blood Count 7.49 K/uL (4.8-10.8)
[2018-09-13 07:38] LABS: Alanine Aminotransferase 142 U/L (12-78); Albumin Globulin Ratio 1.2 (0.9-2); Alkaline Phosphatase 123 U/L (45-117); Aspartate Aminotransferase 343 U/L (15-37); Bilirubin,Total 1.4 mg/dl (0.2-1); Blood Urea Nitrogen 10 mg/dl (7-18); Carbon Dioxide 25 mmol/L (21-32); Chloride 109 mmol/L (98-107); Creatinine Clr Calc Pharmacy 100.1 ml/min; Est GFR (African American) 108.9; Est GFR (Non-African American) 93.9; Globulin 2.5 gm/dl (2.5-4.0); Glucose 82 mg/dl (70-99); Phosphorus 4.1 mg/dl (2.5-4.9); Potassium 4.7 mmol/L (3.5-5.1); Sodium 141 mmol/L (136-145); Total Protein 5.5 gm/dl (6.4-8.2); Troponin I < 0.015 ng/ml (0-0.045)
[2018-09-13] MEDS: ENOXAPARIN INJ 40 MG/0.4 ML SYR SQ SCH (07:49)
[2018-09-13] MEDS: DOCUSATE SODIUM 100 MG CAP PO SCH (07:49)
[2018-09-13] MEDS: FLUOXETINE HCL 20 MG CAP PO SCH (07:49)
[2018-09-13] MEDS: THIAMINE HCL 100 MG TAB PO SCH (07:50)
[2018-09-13] MEDS: FOLIC ACID 1 MG TAB PO SCH (07:50)
[2018-09-13] MEDS: MULTIVITAMIN TAB PO SCH (07:50)
[2018-09-13] MEDS: LISINOPRIL 20 MG TAB PO SCH (07:50)
[2018-09-13] MEDS ORDERED: ATORVASTATIN 10 MG TAB PO SCH (09:00)
--- NOTE | 2018-09-13 14:05 | Hospitalist Progress Note ---
Date of Service September 13, 2018 Assessment & Plan (1) Chest pain: Pt presented to ER with c/o non-radiating mid CP described as pressure with associated nausea. Denies dizziness, SOB. After onset of CP pt reports fatigue and felt "too tired to talk". It is reported pt was given nitro by EMS and upon ER arrival was given mylanta, pepcid and reglan with relief of pain. Initial troponin negative and subsequent troponin negative to. No EKG changes and denies to any more pain since admission Chest pain seems to be noncardiac (2) Hypophosphatemia: phosphorus: 0.9 -In ER was given potassium phosphorus 15mmol -We will monitor (3) Hypokalemia: K: 3.1 -In ER was given potassium phosphorus 15mmol -Potassium is normal today (4) Alcohol use: Reported had 4-5 beers today. ETOH 81 States drinks approx 5 beers/day multiple times a week. Denies hx ETOH withdrawal or seizures AST: 93, ALT: 39, Alk Phos: 85, total bili: 0.5 LFTs has gone up significantly this morning We will get ultrasound of the liver and acute hepatitis panel has been sent Would be secondary to use of alcohol, to rule out hepatitis and possible hypoxic injury to liver Will monitor LFTs No signs and/or symptoms of withdrawal (5) HTN (hypertension): On lisinopril and metoprolol at home Metoprolol is on hold due to bradycardia Will start on a small dose on discharge (6) Dyslipidemia: On atorvastatin We will hold atorvastatin for now due to high LFTs (7) Depression: On fluoxetine (8) Tobacco use: Chews 2 cans snuff a week Follows with Dr Phillips for routine care Subjective 09/13 Patient is seen and examined the medical telemetry uni Pt is 62 y/o M with PMH HTN, dyslipidemia, tobacco use, ETOH use presented to ER with c/o CP. Pt states was sitting and had 4-5 beers when he developed mid CP described as pressure. He denies history of any chest pain but complains to have ongoing epigastric pain He has had this type of pain before and he does not think it is from the heart He denies any nausea and/or vomiting, denies any chest pain in the palpitation or shortness of breath Review of Systems Review of Systems: All systems reviewed and are unremarkable except as noted below Gastrointestinal: + abdominal pain (Mainly epigastric pain with abdominal fullness) and + heartburn Physical Exam Physical Exam: Lying in bed comfortably Constitutional: No apparent distress at rest Eyes: PERRL, conjunctivae normal, anicteric sclerae ENMT: external ear and nose normal, oropharynx normal Neck: trachea midline, no thyromegaly Respiratory: normal respiratory effort; no respiratory distress Auscultation: lungs clear to auscultation bilaterally Cardiovascular: Rate/Rhythm: regular rate and + bradycardic Heart Sounds: normal S1 and normal S2 Gastrointestinal (Abdomen): Inspection/Auscultation: + abdomen distended (Minimally distended epigastrium) Percussion/Palpation: + abdomen tender (Epigastric), abdomen soft and + hepatomegaly (Likely healthy but the) Musculoskeletal: No acute arthritis involving any joints Neurologic: Alert, awake and oriented x3. Results & Data Vital Signs (Past 12 Hours) Vital Signs Temp Pulse Resp BP Pulse Ox 09/13/18 11:32 36.6 C 57 L 18 132/79 97 09/13/18 10:38 95 09/13/18 03:59 36.7 C 58 L 18 152/88 H 96 Laboratory Results Short CBC 09/12/18 09/13/18 Range/Units 16:54 06:28 WBC 9.95 7.49 (4.8-10.8) K/uL Hgb 15.4 12.4 L D (14.0-18.0) g/dL Hct 42.8 36.3 L (42-52) % Plt Count 307 196 (130-400) K/uL BMP 09/12/18 09/13/18 16:54 06:28 Sodium 136 141 Potassium 3.1 L 4.7 D Chloride 102 109 H Carbon Dioxide 19 L 25 BUN 13 10 Creatinine 0.99 0.81 Glucose 88 82 Calcium 9.6 8.0 L D Cardiac Enzymes 09/12/18 09/13/18 Range/Units 16:54 06:28 Total Creatine Kinase 118 (39-308) U/L Troponin I < 0.015 < 0.015 (0-0.045) ng/ml Liver Function 09/12/18 09/13/18 Range/Units 16:54 06:28 Total Bilirubin 0.5 1.4 H D (0.2-1) mg/dl Direct Bilirubin 0.1 (0-0.2) mg/dl AST 93 H 343 H (15-37) U/L ALT 39 142 H (12-78) U/L Alkaline Phosphatase 85 123 H (45-117) U/L Albumin 4.1 3.0 L (3.4-5.0) gm/dl Urine 09/13/18 Range/Units 01:50 Urine Color Yellow Urine Appearance Clear (Clear) Urine pH 5.5 (4.5-7.5) Ur Specific [place] 1.011 (1.000-1.030) Urine Protein Negative (Negative) Urine Glucose (UA) Negative (Negative) Medications Administered Current Inpatient Medications Acetaminophen (Tylenol) 325 mg PO Q6H PRN PRN Reason: Pain or Fever Stop: 10/12/18 21:27 Atorvastatin Calcium (Lipitor) 10 mg PO DAILY [facility] Stop: 10/13/18 08:59 Last Admin: 09/13/18 07:49 Dose: 10 mg Documented by: Docusate Sodium (Colace) 100 mg PO DAILY [facility] Stop: 10/13/18 05:39 Last Admin: 09/13/18 07:49 Dose: 100 mg Documented by: Enoxaparin Sodium (Lovenox) 40 mg SQ QAM [facility] Stop: 10/13/18 08:59 Last Admin: 09/13/18 07:49 Dose: Not Given Documented by: Fluoxetine HCl (Prozac) 40 mg PO DAILY [facility] Stop: 10/13/18 08:59 Last Admin: 09/13/18 07:49 Dose: 40 mg Documented by: Folic Acid (Folvite) 1 mg PO QAM [facility] Stop: 10/13/18 08:59 Last Admin: 09/13/18 07:50 Dose: 1 mg Documented by: Gabapentin (Neurontin) 600 mg PO Q24H [facility] Stop: 09/16/18 09:30 Gabapentin (Neurontin) 600 mg PO Q8H [facility] Stop: 09/14/18 09:30 Gabapentin (Neurontin) 600 mg PO Q12H [facility] Stop: 09/15/18 09:30 Lorazepam (Ativan) 1 mg in 2 mls @ 2 mls/min IV UD PRN; Protocol PRN Reason: EtOH Withdrawl AWSS Score 6,7 Stop: 10/12/18 21:27 Lorazepam (Ativan) 2 mg in 4 mls @ 4 mls/min IV UD PRN; Protocol PRN Reason: EtOH Withdrawl AWSS Score 8,9 Stop: 10/12/18 21:27 Lorazepam (Ativan) 3 mg in 6 mls @ 4 mls/min IV ONCE PRN; Protocol PRN Reason: EtOH Withdrawl AWSS Score >=10 Stop: 10/12/18 21:27 Promethazine HCl 12.5 mg/ (Sodium Chloride) 50.5 mls @ 202 mls/hr IV Q6H PRN PRN Reason: Nausea And Vomiting Stop: 10/12/18 21:27 Lisinopril (Zestril) 20 mg PO DAILY [facility] Stop: 10/13/18 08:59 Last Admin: 09/13/18 07:50 Dose: 20 mg Documented by: Miscellaneous (Ativan Iv Alcohol Withdrawl) 1 ea IV UD [facility]; Protocol Stop: 10/12/18 21:29 Morphine Sulfate (Morphine Sulfate) 2 mg IV Q4H PRN PRN Reason: Pain Stop: 09/26/18 21:27 Last Admin: 09/13/18 03:20 Dose: 2 mg Documented by: Multivitamins (Multivitamin Tab) 1 tab PO [facility] Stop: 10/13/18 08:59 Last Admin: 09/13/18 07:50 Dose: 1 tab Documented by: Oxycodone HCl (Roxicodone Immediate Rel) 5 mg PO Q4H PRN PRN Reason: Pain Stop: 09/26/18 21:27 Last Admin: 09/13/18 01:54 Dose: 5 mg Documented by: Pantoprazole Sodium (Protonix) 40 mg PO HS [facility] Stop: 09/16/18 21:01 Polyethylene Glycol (Miralax Powder Packet) 17 gm PO DAILY PRN PRN Reason: Constipation Stop: 10/13/18 05:37 Thiamine HCl ([facility]itamin B-[facility]) [facility] [place] Stop: 10/13/18 08:59 Last Admin: 09/13/18 07:50 Dose: 100 mg Documented by:
[2018-09-13 14:08] LABS: Hepatitis B Surface Antigen Neg (Neg)
--- NOTE | 2018-09-13 14:16 | Ultrasound Report ---
US abdomen limited HISTORY: 62 years-old Male r/o Hepatomegaly clinical concern for hepatomegaly COMPARISON: CT abdomen and pelvis 04/20/2016 TECHNIQUE: Multiple real-time sonographic images of the abdominal right upper quadrant were obtained assessing grayscale appearance and color flow FINDINGS: The visualized pancreas is unremarkable. There is increased echogenicity of the liver with poor throu gh transmission suggestive of hepatic steatosis. Liver measures up to 13.6 cm in length. No focal hep atic mass lesions, evidence of cirrhosis or intrahepatic biliary ductal dilation. Common bile duct measures 6 mm. The gallbladder is surgically absent. The imaged right kidney is unre markable. IMPRESSION: 1. Suggestion of hepatic steatosis without evidence of hepatomegaly. 2. Prior cholecystectomy. The above report was generated using voice recognition software. It may contain grammatical, syntax o r spelling errors. Electronically signed by: Panchito Vogel M.D. 09/13/2018 2:15 PM
[2018-09-13 14:37] LABS: Hepatitis C IgG 13Yrs+Old_Rflx Neg (Neg)
[2018-09-13] MEDS ORDERED: PANTOprazole 40 MG TAB PO SCH (21:00)
--- OUTSIDE RECORDS SUMMARY | 2018-09-13 22:44 | External Medical Summary | Continuity of Care Document ---
:1955 Author Name Lisa Marcano, Provider Address Unavailable Unavailable , Care Team Providers Name Role Phone Non[facility] MJoselyn, Provider Unavailable [email or web address] Unavailable Unavailable Unavailable Unavailable Unavailable Problems Altered mental status (780.97) (R41.82) Allergies and Adverse Reactions No Known Drug Allergies (Allergy) Medications PROzac 40 MG Oral Capsule; TAKE 1 CAPSULE DAILY. Refills: 0 Mevacor 40 MG TABS; TAKE 1 TABLET DAILY AT DINNER. Refills: 0 Cardura 2 MG Oral Tablet; TAKE 1 TABLET DAILY. Refills: 0 Lisinopril 20 MG Oral Tablet; TAKE 1 TABLET DAILY DIRECTE D. Refills: 0 Dyazide 37.5-25 MG Oral Capsule; TAKE 1 CAPSULE DAILY. Refills: 0 Protonix [facility]EC Refills: 0 Procedures Procedures not documented Immunizations Immunizations not documented Social History - Smoking Status Never smoker Plan of Treatment Planned Observations Planned Goals not documented Results No Known Results Results not documented
[2018-09-14] MEDS: GABAPENTIN 600 MG TAB PO SCH ×2 (01:04→08:19)
[2018-09-14] MEDS: DOCUSATE SODIUM 100 MG CAP PO SCH (08:18)
[2018-09-14] MEDS: ENOXAPARIN INJ 40 MG/0.4 ML SYR SQ SCH (08:19)
[2018-09-14] MEDS: LISINOPRIL 20 MG TAB PO SCH (08:19)
[2018-09-14] MEDS: THIAMINE HCL 100 MG TAB PO SCH (08:19)
[2018-09-14] MEDS: FOLIC ACID 1 MG TAB PO SCH (08:19)
[2018-09-14] MEDS: MULTIVITAMIN TAB PO SCH (08:19)
[2018-09-14] MEDS: FLUOXETINE HCL 20 MG CAP PO SCH (08:19)
[2018-09-14 11:40] LABS: Albumin Level 3.3 gm/dl (3.4-5.0); BUN Creatinine Ratio 13.7 (10-20); Bilirubin Direct 0.1 mg/dl (0-0.2); Bilirubin,Total 0.4 mg/dl (0.2-1); Est GFR (Non-African American) 97.5; Potassium 4.2 mmol/L (3.5-5.1); Total Protein 6.2 gm/dl (6.4-8.2)
--- NOTE | 2018-09-14 13:25 | Hospitalist Progress Note ---
Date of Service September 14, 2018 Assessment & Plan (1) Chest pain: Pt presented to ER with c/o non-radiating mid CP described as pressure with associated nausea. Denies dizziness, SOB. After onset of CP pt reports fatigue and felt "too tired to talk". It is reported pt was given nitro by EMS and upon ER arrival was given mylanta, pepcid and reglan with relief of pain. Initial troponin negative and subsequent troponin negative to. No EKG changes and denies to any more pain since admission Chest pain seems to be noncardiac No more bradycardia and her chest pain Will need to have Holter as an outpatient Will provide Protonix on discharge (2) Hypophosphatemia: phosphorus: 0.9 -In ER was given potassium phosphorus 15mmol -We will monitor -Corrected (3) Hypokalemia: K: 3.1 -In ER was given potassium phosphorus 15mmol -Potassium is normal today -Normal (4) Alcohol use: Reported had 4-5 beers today. ETOH 81 States drinks approx 5 beers/day multiple times a week. Denies hx ETOH withdrawal or seizures AST: 93, ALT: 39, Alk Phos: 85, total bili: 0.5 LFTs has gone up significantly this morning We will get ultrasound of the liver and acute hepatitis panel has been sent Would be secondary to use of alcohol, to rule out hepatitis and possible hypoxic injury to liver Will monitor LFTs No signs and/or symptoms of withdrawal (5) HTN (hypertension): On lisinopril and metoprolol at home Metoprolol is on hold due to bradycardia Will start on a small dose on discharge (6) Dyslipidemia: On atorvastatin We will hold atorvastatin for now due to high LFTs (7) Depression: On fluoxetine (8) Tobacco use: Chews 2 cans snuff a week Follows with Dr Phillips for routine care (9) Elevated LFTs: Likely secondary to alcohol Ultrasound did show hepatic steatosis without any hepatomegaly LFTs have been improving Hepatitis panel negative so far Subjective 09/13 Patient is seen and examined the medical telemetry unit Pt is 62 y/o M with PMH HTN, dyslipidemia, tobacco use, ETOH use presented to ER with c/o CP. Pt states was sitting and had 4-5 beers when he developed mid CP described as pressure. He denies history of any chest pain but complains to have ongoing epigastric pain He has had this type of pain before and he does not think it is from the heart He denies any nausea and/or vomiting, denies any chest pain in the palpitation or shortness of breath 09/14 Patient seen and examined in medical telemetry unit He feels a lot better today Denies any abdominal pain, nausea or vomiting Has been ambulating without any difficulty Review of Systems Review of Systems: All systems reviewed and are unremarkable except as noted below Gastrointestinal: + heartburn Neurologic: Occasional dizzy spell for the last 3 to 5 years. Physical Exam Physical Exam: No apparent distress at rest Eyes: PERRL, conjunctivae normal, anicteric sclerae ENMT: external ear and nose normal, oropharynx normal Neck: trachea midline, no thyromegaly Respiratory: normal respiratory effort; no respiratory distress Auscultation: lungs clear to auscultation bilaterally Cardiovascular: Rate/Rhythm: regular rate and + bradycardic Heart Sounds: normal S1 and normal S2 Gastrointestinal (Abdomen): Inspection/Auscultation: + abdomen distended (Minimally distended epigastrium) Percussion/Palpation: + abdomen tender (Epigastric), abdomen soft and + hepatomegaly (Likely healthy but the) Musculoskeletal: no cyanosis or clubbing, extremities motor strength 5/5 Neurologic: PERRL, EOMI, accommodation nl, no face palsy, no dysarthria Results & Data Vital Signs (Past 12 Hours) Vital Signs Temp Pulse Resp BP Pulse Ox 09/14/18 11:51 37.3 C 63 18 131/88 98 09/14/18 07:11 36.7 C 55 L 18 146/86 H 97 09/14/18 04:24 37 C 52 L 18 155/92 H 96 Laboratory Results [facility] 09/14/18 10:28 Sodium 139 Potassium 4.2 Chloride 107 Carbon Dioxide 28 BUN 10 Creatinine 0.74 Glucose 96 Calcium 9.0 Liver Function 09/14/18 Range/Units 10:28 Total Bilirubin 0.4 D (0.2-1) mg/dl Direct Bilirubin 0.1 (0-0.2) mg/dl AST 57 H (15-37) U/L ALT 97 H (12-78) U/L Alkaline Phosphatase 121 H (45-117) U/L Albumin 3.3 L (3.4-5.0) gm/dl Medications Administered Current Inpatient Medications Acetaminophen (Tylenol) 325 mg PO Q6H PRN PRN Reason: Pain or Fever Stop: 10/12/18 21:27 Docusate Sodium (Colace) 100 mg PO DAILY [facility] Stop: 10/13/18 05:39 Last Admin: 09/14/18 08:18 Dose: 100 mg Documented by: Enoxaparin Sodium (Lovenox) 40 mg SQ QAM [facility] Stop: 10/13/18 08:59 Last Admin: 09/14/18 08:19 Dose: Not Given Documented by: Fluoxetine HCl (Prozac) 40 mg PO DAILY [facility] Stop: 10/13/18 08:59 Last Admin: 09/14/18 08:19 Dose: 40 mg Documented by: Folic Acid (Folvite) 1 mg PO QAM [facility] Stop: 10/13/18 08:59 Last Admin: 09/14/18 08:19 Dose: 1 mg Documented by: Gabapentin (Neurontin) 600 mg PO Q24H [facility] Stop: 09/16/18 09:30 Gabapentin (Neurontin) 600 mg PO Q12H [facility] Stop: 09/15/18 09:30 Lorazepam (Ativan) 1 mg in 2 mls @ 2 mls/min IV UD PRN; Protocol PRN Reason: EtOH Withdrawl AWSS Score 6,7 Stop: 10/12/18 21:27 Lorazepam (Ativan) 2 mg in 4 mls @ 4 mls/min IV UD PRN; Protocol PRN Reason: EtOH Withdrawl AWSS Score 8,9 Stop: 10/12/18 21:27 Lorazepam (Ativan) 3 mg in 6 mls @ 4 mls/min IV ONCE PRN; Protocol PRN Reason: EtOH Withdrawl AWSS Score >=10 Stop: 10/12/18 21:27 Promethazine HCl 12.5 mg/ (Sodium Chloride) 50.5 mls @ 202 mls/hr IV Q6H PRN PRN Reason: Nausea And Vomiting Stop: 10/12/18 21:27 Lisinopril (Zestril) 20 mg PO DAILY [facility] Stop: 10/13/18 08:59 Last Admin: 09/14/18 08:19 Dose: 20 mg Documented by: Miscellaneous (Ativan Iv Alcohol Withdrawl) 1 ea IV UD [facility]; Protocol Stop: 10/12/18 21:29 Morphine Sulfate (Morphine Sulfate) 2 mg IV Q4H PRN PRN Reason: Pain Stop: 09/26/18 21:27 Last Admin: 09/13/18 03:20 Dose: 2 mg Documented by: Multivitamins (Multivitamin Tab) 1 tab PO [facility] Stop: 10/13/18 08:59 Last Admin: 09/14/18 08:19 Dose: 1 tab Documented by: Oxycodone HCl (Roxicodone Immediate Rel) 5 mg PO Q4H PRN PRN Reason: Pain Stop: 09/26/18 21:27 Last Admin: 09/13/18 01:54 Dose: 5 mg Documented by: Pantoprazole Sodium (Protonix) 40 mg PO [facility] Stop: 09/16/18 21:01 Last Admin: 09/13/18 20:59 Dose: 40 mg Documented by: Polyethylene Glycol (Miralax Powder Packet) 17 gm PO DAILY PRN PRN Reason: Constipation Stop: 10/13/18 05:37 Thiamine HCl (Vitamin B-1) 100 mg PO [facility] Stop: 10/13/18 08:59 Last Admin: 09/14/18 08:19 Dose: 100 mg Documented by:
[2018-09-14] MEDS ORDERED: GABAPENTIN 600 MG TAB PO SCH (21:29)
--- NOTE | 2018-09-15 08:24 | Discharge Summary ---
Date of Service September 15, 2018 Admission HPI Per Admitting Provider Pt is 62 y/o M with PMH HTN, dyslipidemia, tobacco use, ETOH use presented to ER with c/o CP. Pt states was sitting and had 4-5 beers when he developed mid CP described as pressure. Pt states had CP for approx 20 minutes and then felt tired and felt "too tired to talk". CP was non-radiating and denies dizziness, SOB. Pt unsure if he was diaphoretic, reports had some nausea. Pt reports EMS pushed on mid/lower chest and that increased pain. It is reported pt was given nitro by EMS and upon ER arrival was given mylanta, pepcid and reglan with relief of pain. Denies heartburn sensation. Pt reports drinks 5 beers most days of the week. He denies hx alcohol withdrawal or seizures. Drinks 20 ounces of coffee a day. Denies aspirin, NSAID use. Denies fever/chills, V/D/C, LAND, dizziness, syncope, vision changes, neck pain, orthopnea, palpitations, cough, sore throat, choking, otalgia, rhinorrhea, abdominal pain, paresthesias, weakness, extremity weakness, extremity edema, rashes, urinary symptoms. Admission Exam Per Admitting Provider Physical Exam: General: no acute distress, WDWN Head: normocephalic, atraumatic Eyes: PERRL, EOM's intact, conjunctiva non-injected, anicteric ENT: normal inspection external ears, nose, mucous membranes moist; +ETOH odor on breath Neck: supple, trachea midline, non-tender Lungs: clear, no respiratory distress, no wheezing/rhonchi/rales CV: RRR, no murmur, no pretibial edema Abd: normal BS, soft, non-tender to palpation Ext: no cyanosis, no calf tenderness Neuro: A&O x 3, no focal deficits noted, normal affect Skin: warm, dry Principal Diagnosis Chest pain-ACS ruled out and likely noncardiac, hepatic steatosis, alcoholism, history of presyncope, bradycardia Discharge Exam Eyes PERRL, conjunctivae normal, anicteric sclerae ENMT external ear and nose normal, oropharynx normal Neck trachea midline, no thyromegaly Respiratory normal respiratory effort; no respiratory distress Auscultation: lungs clear to auscultation bilaterally Cardiovascular Rate/Rhythm: regular rate and + bradycardic Heart Sounds: normal S1 and normal S2 Gastrointestinal (Abdomen) Inspection/Auscultation: + abdomen distended (Minimally distended epigastrium) Percussion/Palpation: + abdomen tender (Epigastric), abdomen soft and + hepatomegaly (Likely healthy but the) Musculoskeletal no cyanosis or clubbing, extremities motor strength 5/5 Neurologic PERRL, EOMI, accommodation nl, no face palsy, no dysarthria Discharge Data Allergies Allergy/AdvReac Type Severity Reaction Status Date / Time No Known Allergies Allergy Mild Verified 09/12/18 17:39 Consultations 09/12/18 19:14 ED Decision to Admit Stat Ordered Studies 09/13/18 12:45 US abdomen limited Routine Hospital Course (1) Chest pain: Pt presented to ER with c/o non-radiating mid CP described as pressure with associated nausea. Denies dizziness, SOB. After onset of CP pt reports fatigue and felt "too tired to talk". It is reported pt was given nitro by EMS and upon ER arrival was given mylanta, pepcid and reglan with relief of pain. Initial troponin negative and subsequent troponin negative to. No EKG changes and denies to any more pain since admission Chest pain seems to be noncardiac No more bradycardia and her chest pain Will need to have Holter as an outpatient Will provide Protonix on discharge (2) Hypophosphatemia: phosphorus: 0.9 -In ER was given potassium phosphorus 15mmol -We will monitor -Corrected (3) Hypokalemia: K: 3.1 -In ER was given potassium phosphorus 15mmol -Potassium is normal today -Normal (4) Alcohol use: Reported had 4-5 beers today. ETOH 79 States drinks approx 5 beers/day multiple times a week. Denies hx ETOH withdrawal or seizures AST: 93, ALT: 39, Alk Phos: 85, total bili: 0.5 LFTs has gone up significantly this morning We will get ultrasound of the liver and acute hepatitis panel has been sent Would be secondary to use of alcohol, to rule out hepatitis and possible hypoxic injury to liver Will monitor LFTs No signs and/or symptoms of withdrawal (5) HTN (hypertension): On lisinopril and metoprolol at home Metoprolol is on hold due to bradycardia Will start on a small dose on discharge (6) Dyslipidemia: On atorvastatin We will hold atorvastatin for now due to high LFTs (7) Depression: On fluoxetine (8) Tobacco use: Chews 2 cans snuff a week Follows with Dr Phillips for routine care (9) Elevated LFTs: Likely secondary to alcohol Ultrasound did show hepatic steatosis without any hepatomegaly LFTs have been improving Hepatitis panel negative so far Total Time Total Time Spent Total Time Spent (In Minutes): 40 minutes Total Time Includes: Examination of the Patient, Discharge Planning, Medication Reconciliation and Communication With Other Providers Discharge Plan Discharge Items Patient Disposition: Home - Self-Care Reason For Visit: CP,SYNCOPE,LOW PHOS Discharge Diagnosis: Chest pain-ACS ruled out and likely noncardiac, hepatic steatosis, alcoholism, history of presyncope, bradycardia Discharge Goals: Decrease discomfort, Improve function and Increase independence Activity: Resume your previous activity Non-emergency contact: Primary Care Provider Call non-emergency contact if: you have any medication questions and your symptoms worsen Follow-up/Referrals: Moris Phillips MD [Primary Care Provider] - 09/17/18 10:05 am (Your appointment is with Dr. Jung. Please put a Holter for about 1week to rule out any arrhythmias that is causing infrequent presyncope episode for the last few years.) Diet: Heart Healthy Addtl Provider Instructions: Continue to do physical exercise. Avoid any alcohol. Do not restart statin until the liver function is normalized Prescriptions: New thiamine HCl (vitamin B1) [Vitamin B-1] 100 mg Tablet 100 mg PO QAM 30 Days Qty: 30 RF: 0 pantoprazole 40 mg Tablet,Delayed Release (Dr/Ec) 40 mg PO HS 30 Days Qty: 30 RF: 0 folic acid 1 mg Tablet 1 mg PO QAM 30 Days Qty: 30 RF: 0 metoprolol succinate [Toprol XL] 25 mg tablet extended release 24 hr 25 mg PO DAILY Qty: 30 RF: 0 Continued fluoxetine [Prozac] 40 mg capsule 40 mg PO DAILY RF: 0 lisinopril [Zestril] 20 mg tablet 20 mg PO DAILY RF: 0 Discontinued atorvastatin 10 mg Tablet 10 mg PO DAILY RF: 0 metoprolol succinate [Toprol XL] 50 mg tablet extended release 24 hr 50 mg PO DAILY RF: 0 acetaminophen [Tylenol Extra Strength] 500 mg Tablet 100 mg PO TID PRN (Reason: Pain) RF: 0 Stand-Alone Forms: Call Back Authorization, [facility] Discharge Orders: Discharge Order (Routine); Ordered 09/14/18 Ordered By: Tosin Russell Admission Data Admit Date/Time: 09/12/18 20:28 Attending Provider: Tosin Russell Admit Provider: Weston Ponce Primary Care Provider: Moris Phillips Other Providers: Weston Ponce Service: Telemetry Medical Other Interventions: Discharge Summary Assessment (RN) Last Done: 09/14/18 14:16 DC Date/Time DO NOT enter until pt leaves facility: 09/14/18 14:32
[2018-09-15 11:07] LABS: Hydrocodone Urine NEGATIVE NG/ML (CUTOFF=50); Hydromor Urine NEGATIVE NG/ML (CUTOFF=50); Morphine Urine 60 NG/ML (CUTOFF=50); Norhydrocodone Conf Ur NEGATIVE NG/ML (CUTOFF=50); Noroxycodone Urine 818 NG/ML (CUTOFF=50); Oxycodone Urine 388 NG/ML (CUTOFF=50)
[2018-09-16] MEDS ORDERED: GABAPENTIN 600 MG TAB PO SCH (09:29)
== END 2018-09-14 14:32 | disposition home or self-care (01) | DRG 897 ==
LOC: ED 16:54 → 2W 20:28

== ENCOUNTER 2018-12-19 09:10 | Inpatient (IN) ==
[2018-12-19] MEDS ORDERED: SODIUM CHLORIDE 0.9% 1000ML 1,000 ML IV ONE (09:25)
[2018-12-19] MEDS ORDERED: CEFEPIME 2,000 MG/20 ML VIAL IV STA (09:25)
--- NOTE | 2018-12-19 09:39 | Emergency Department Note ---
Entered by Camilla Page acting as a scribe for Idris Avila MD History of Present Illness General Chief complaint: Abnormal Labs/Diagnostic Testing Stated complaint: ABD PAIN Time Seen by Provider: 12/19/18 09:19 Source: patient History of Present Illness Onset (ago): hour(s) 5 Location: head (general) Pain Consistency: + other (episode ) Maximum Pain Intensity: 7 Quality: + other (abnormal labs) Associated symptoms: + fever/chills (intermittent), + headaches, + nausea/vomiting (now resolved) and + other (negative sore throat; negative diarrhea; negative blood in urine; negative burning with urination); no cough Treatments prior to arrival: other (Levaquin) The patient is a 63 year old male who presents to the Emergency Room with complaints of an episode of abnormal labs that occurred at about 0400 this morning, about 5 hours prior to arrival. The patient states that he was seen in the ED yesterday for persistent abdominal pain over the past week. He reports that during this time he had persistent vomiting, but states that this has since resolved. The patient states that after a CT he was told he has pneumonia. He denies cough, sore throat, diarrhea, blood in his urine, and burning with urination. The patient reports intermittent fever. He states that he has a slight headache currently. The patient states that he has been taking Levaquin since he was seen yesterday. The patient reports drinking a 6 pack of beer about 4 times per week. He states that he has no problems when he is not drinking. Home Medications Home Medications Medication Instructions Recorded Confirmed Type fluoxetine [Prozac] 40 mg PO QAM 09/12/18 12/19/18 History lisinopril [Zestril] 20 mg PO QAM 09/12/18 12/19/18 History folic acid 1 mg PO QAM 12/18/18 12/19/18 History thiamine HCl (vitamin B1) [Vitamin 100 mg PO QAM 12/18/18 12/19/18 History B-1] levofloxacin [Levaquin] 750 mg PO QAM 12/19/18 12/19/18 History pantoprazole 40 mg PO QAM 12/19/18 12/19/18 History ranitidine HCl 150 mg PO QAM 08/04/19 08/04/19 History Allergies Allergy/AdvReac Type Severity Reaction Status Date / Time No Known Allergies Allergy Mild Verified 12/19/18 09:24 Past Med/Surg History Medical History Alcohol use (Chronic) Tobacco use (Chronic) Depression (Chronic) HTN (hypertension) (Chronic) Dyslipidemia (Chronic) Surgical History History of back surgery (Chronic) S/P laparoscopic cholecystectomy (Chronic) S/P tonsillectomy (Chronic) H/O vasectomy (Chronic) H/O arthroscopy of knee (Chronic) Family History Uncle Coronary heart disease Father Stroke Social History Preferred Language: [place] Communication Ability: Effective Licensing Registration Examiner Required: No Beliefs That Will Affect Care: None Current Living Situation: Spouse Feels Safe at Home: Yes Smoking Status: Never smoker Tobacco Type: smokeless tobacco ; Second Hand Exposure: No ; Hx Alcohol Use: Yes Alcohol type: beer Hx Substance Use: Yes substance use type: marijuana Substance Use Type Other:: OCCASIONALLY Last Used Substance: Unknown Review of Systems See HPI for pertinent positives & negatives. and A total of 10 systems reviewed and were otherwise negative Physical Exam Vital Signs Vital Signs - 24 hr 12/19/18 09:15 12/19/18 09:57 12/19/18 11:10 Temperature 37.0 C Temperature Source Oral Sepsis Recent Fever Within 48 Hours Yes Sepsis New/Unexplained Change in Mental Status No Sepsis Action Taken by Nursing No Action Required Pulse Rate 106 H Pulse Rate [Apical] 77 Respiratory Rate 20 16 Blood Pressure 122/80 Blood Pressure [Right Arm] 127/81 Blood Pressure Mean 94 Blood Pressure Mean [Right Arm] 96 Pulse Oximetry 97 97 98 Oxygen Delivery Method Room Air Room Air Room Air General: Non-ill appearing middle aged male in no acute distress. HEENT: Normal cephalic atraumatic. Pupils are equal round and reactive to light. Extraocular movements are intact. Oropharynx is pink with moist mucous membranes. No swelling of the mouth lips or tongue. Neck: Supple with a midline trachea. No meningeal signs or stiffness, no JVD or bruits. No Stridor. Chest: Clear to auscultation bilaterally. No wheezes or rhonchi. No increased work of breathing. Heart: regular rate and rhythm. Abdomen: Soft nontender, nondistended without rebound guarding or rigidity. Extremities: No cyanosis clubbing or edema. No calf tenderness or asymmetry Spine/Back. Non tender to palpation. No CVA tenderness Skin: Good turgor without rashes. Neurologic exam: Cranial nerves two through 12 are intact. Motor and sensation are intact and symmetrical throughout. Course 919: Past medical records reviewed. The patient was evaluated in room B11B. A complete history and physical exam was performed. 1044: I discussed the case with Dr. Patricio [facility] who states t hat Dr. Cantrell [facility] will further evaluate the patient. 1050: Upon reevaluation, the patient looks good and is resting comfortably. 1103: I discussed the case with Dr. Óscar Ya who is evaluating the patient. Administered Medications Hydromorphone HCl (Dilaudid) 1 mg IV Q4H PRN PRN Reason: Severe Pain Stop: 01/02/19 14:35 Last Admin: 12/19/18 15:00 Dose: 1 mg Documented by: [id number] Potassium Chloride/Dextrose/Sod Cl (D5nss + 20meq Kcl) 20 meq in 1,000 mls @ 150 mls/hr IV .Q6H40M SOPHIA Stop: 01/18/19 13:59 Last Admin: 12/19/18 15:02 Dose: 150 mls/hr Documented by: [id number] Discontinued Medications Cefepime HCl (Maxipime) 2,000 mg in 20 mls @ 5 mls/min IV NOW STA; Protocol Stop: 12/19/18 09:28 Last Admin: 12/19/18 09:53 Dose: 5 mls/min Documented by: [id number] Sodium Chloride (Nss 1000ml) 1,000 mls @ 999 mls/hr IV .Q1H1M ONE Stop: 12/19/18 10:25 Last Infusion: 12/19/18 10:55 Dose: 0 mls/hr Documented by: [id number] Admin: 12/19/18 09:53 Dose: 999 mls/hr Documented by: [id number] Piperacillin Sod/Tazobactam (Sod 4.5 gm/ Dextrose) 120 mls @ 200 mls/hr IV NOW ONE; Protocol Stop: 12/19/18 14:35 Last Admin: 12/19/18 15:01 Dose: 200 mls/hr Documented by: [id number] Medical Decision Making Differential Diagnosis Differential diagnoses include sepsis, pneumonia, UTI, electrolyte or metabolic abnormality, and others were considered. Medical Records Attestation: I reviewed the patient's medical records. Home Medications Current Medication List: was personally reviewed by me Laboratory Data Attestation: I reviewed the patient's lab results. Result diagrams: 12/19/18 09:42 12/19/18 09:42 Lab Results 12/19/18 12/19/18 12/19/18 Range/Units 09:42 09:42 09:42 WBC 7.93 (4.8-10.8) K/uL RBC 4.03 L (4.7-6.1) M/uL Hgb 12.7 L (14.0-18.0) g/dL Hct 36.3 L (42-52) % MCV 90.1 (80-100) fL MCH 31.5 (25-34) pg MCHC 35.0 (32-36) g/dL RDW Std Deviation 41.2 (36.4-46.3) fL RDW Coeff of Panda 12.5 (11.5-14.5) % Plt Count 185 (130-400) K/uL MPV 9.9 (7.4-10.4) fL Immature Gran % (Auto) 0.4 % Neut % (Auto) 74.8 % Lymph % (Auto) 10.7 % [place] % (Auto) 11.6 % Eos % (Auto) 2.4 % Baso % (Auto) 0.1 % Immature Gran # (Auto) 0.03 H (0.00-0.02) K/uL Neut # (Auto) 5.93 (1.4-6.5) K/uL Lymph # (Auto) 0.85 L (1.2-3.4) K/uL [place] # (Auto) 0.92 H (0.11-0.59) K/uL Eos # (Auto) 0.19 (0-0.5) K/uL Baso # (Auto) 0.01 (0-0.2) K/uL PT 10.9 (9.0-12.0) Seconds INR 1.1 (0.9-1.1) APTT 27.1 (21.0-31.0) Seconds PTT Ratio 1.0 Sodium 133 L (136-145) mmol/L Potassium 3.6 D (3.5-5.1) mmol/L Chloride 100 (98-107) mmol/L Carbon Dioxide 26 (21-32) mmol/L Anion Gap 7.0 (3-11) BUN 9 D (7-18) mg/dl Creatinine 0.73 (0.6-1.4) mg/dl Est Cr Clr Drug Dosing 105.9 ml/min Est GFR ( Amer) 112.8 Est GFR (Non-Af Amer) 97.3 BUN/Creatinine Ratio 11.7 (10-20) Glucose 126 H (70-99) mg/dl Lactate (0.4-2.0) mmol/L Calcium 9.3 (8.5-10.1) mg/dl Total Bilirubin 0.9 (0.2-1) mg/dl AST 63 H (15-37) U/L ALT 112 H (12-78) U/L Alkaline Phosphatase 281 H (45-117) U/L Total Protein 6.9 (6.4-8.2) gm/dl Albumin 2.7 L (3.4-5.0) gm/dl Globulin 4.1 H (2.5-4.0) gm/dl Albumin/Globulin Ratio 0.7 L (0.9-2) 12/19/18 Range/Units 09:42 WBC (4.8-10.8) K/uL RBC (4.7-6.1) M/uL Hgb (14.0-18.0) g/dL Hct (42-52) % MCV (80-100) fL MCH (25-34) pg MCHC (32-36) g/dL RDW Std Deviation (36.4-46.3) fL RDW Coeff of Panda (11.5-14.5) % Plt Count (130-400) K/uL MPV (7.4-10.4) fL Immature Gran % (Auto) % Neut % (Auto) % Lymph % (Auto) % [place] % (Auto) % Eos % (Auto) % Baso % (Auto) % Immature Gran # (Auto) (0.00-0.02) K/uL Neut # (Auto) (1.4-6.5) K/uL Lymph # (Auto) (1.2-3.4) K/uL [place] # (Auto) (0.11-0.59) K/uL Eos # (Auto) (0-0.5) K/uL Baso # (Auto) (0-0.2) K/uL PT (9.0-12.0) Seconds INR (0.9-1.1) APTT (21.0-31.0) Seconds PTT Ratio Sodium (136-145) mmol/L Potassium (3.5-5.1) mmol/L Chloride (98-107) mmol/L Carbon Dioxide (21-32) mmol/L Anion Gap (3-11) BUN (7-18) mg/dl Creatinine (0.6-1.4) mg/dl Est Cr Clr Drug Dosing ml/min Est GFR ( Amer) Est GFR (Non-Af Amer) BUN/Creatinine Ratio (10-20) Glucose (70-99) mg/dl Lactate 1.1 (0.4-2.0) mmol/L Calcium (8.5-10.1) mg/dl Total Bilirubin (0.2-1) mg/dl AST (15-37) U/L ALT (12-78) U/L Alkaline Phosphatase (45-117) U/L Total Protein (6.4-8.2) gm/dl Albumin (3.4-5.0) gm/dl Globulin (2.5-4.0) gm/dl Albumin/Globulin Ratio (0.9-2) Imaging Data Radiologist's Impression: Radiology results as stated below per my review and the radiologist's interpretation: XR chest 1V portable HISTORY: 63 years-old Male Sepsis acute sepsis COMPARISON: Chest radiograph and CT abdomen and pelvis 12/18/2018 TECHNIQUE: Portable AP view of the chest. FINDINGS: Cardiomediastinal and hilar silhouettes are within normal limits. No pneumothorax, pleural effusion or overt pulmonary edema. Minimal consolidation about the inferior segment lingula redemonstrated. Calcified granulomata about the basal left lower lobe. Degenerative changes of the shoulders and spine. IMPRESSION: 1. Unchanged minimal consolidation of the inferior segment lingula suggestive of atelectasis/scarring or mild pneumonitis. 2. Prior granulomatous disease. The above report was generated using voice recognition software. It may contain grammatical, syntax or spelling errors. Electronically signed by: Panchito Vogel M.D. 12/19/2018 10:04 AM Blood Pressure Blood Pressure Findings: Normal blood pressure MDM Narrative This patient comes in as described above. He has been feeling sick for about a week he was started on Levaquin for pneumonia yesterday. He was called back to the ER today because he had 4 out of 4 culture bottles grow out gram negative bacilli. He said he had a fever last night. Stable vital signs at present. He denies any dysuria or hematuria. No significant headache. He has been having some ongoing abdominal pain at times off and on. He had a CAT scan yesterday of his abdomen which was unremarkable with exception of a focal area of consolidation on his chest x-ray consistent with pneumonia. There is also trace pneumobilia in the liver and Dr. Banks had discussed this with Dr. Menard yesterday as well. IV access established and full sepsis work-up was done. We did order cefepime 2 g IV. He was given additional IV normal saline boluses. He is hemodynamically stable. Today's white count and lactate are normal. He did receive IV fluids as well. He will be admitted for further treatment and evaluation. Impression & Plan Sepsis, Positive blood culture, Pneumonia, Abdominal pain Discharge Plan Visit Data *Final* Discharge Date/Time: 12/19/18 13:10 Chief Complaint: Abnormal Labs/Diagnostic Testing Stated Complaint: ABD PAIN ED Provider: Idris Avila Discharge Problem: Sepsis, Positive blood culture, Pneumonia, Abdominal pain Patient Disposition: Admitted As Inpatient Discharge Instructions Interventions: ED Discharge Assessment Last Done: 12/19/18 13:10 The scribe's documentation has been prepared under my direction and personally reviewed by me in its entirety. I confirm that the note above accurately reflects all work, treatment, procedures, and medical decision making performed by me.
[2018-12-19 09:54] LABS: Basophils # (auto) 0.01 K/uL (0-0.2); Basophils % (auto) 0.1 %; Eosinophils # (auto) 0.19 K/uL (0-0.5); Eosinophils % (auto) 2.4 %; Hematocrit (blood only) 36.3 % (42-52); Hemoglobin 12.7 g/dL (14.0-18.0); Immature Granulocytes # (auto) 0.03 K/uL (0.00-0.02); Immature Granulocytes % (auto) 0.4 %; Lymphocytes # (auto) 0.85 K/uL (1.2-3.4); Lymphocytes % (auto) 10.7 %; Mean Corpuscular Volume 90.1 fL (80-100); Mean Platelet Volume 9.9 fL (7.4-10.4); Monocytes # (auto) 0.92 K/uL (0.11-0.59); Monocytes % (auto) 11.6 %; Neutrophils # (auto) 5.93 K/uL (1.4-6.5); Neutrophils % (auto) 74.8 %; Platelet Count 185 K/uL (130-400); RDW Coefficient of Variation 12.5 % (11.5-14.5); RDW Standard Deviation 41.2 fL (36.4-46.3); Red Blood Count 4.03 M/uL (4.7-6.1); White Blood Count 7.93 K/uL (4.8-10.8)
--- NOTE | 2018-12-19 10:05 | XRay Report ---
XR chest 1V portable HISTORY: 63 years-old Male Sepsis acute sepsis COMPARISON: Chest radiograph and CT abdomen and pelvis 12/18/2018 TECHNIQUE: Portable AP view of the chest. FINDINGS: Cardiomediastinal and hilar silhouettes are within normal limits. No pneumothorax, pleural effusion o r overt pulmonary edema. Minimal consolidation about the inferior segment lingula redemonstrated. Sebastian cified granulomata about the basal left lower lobe. Degenerative changes of the shoulders and spine. IMPRESSION: 1. Unchanged minimal consolidation of the inferior segment lingula suggestive of atelectasis/scarring or mild pneumonitis. 2. Prior granulomatous disease. The above report was generated using voice recognition software. It may contain grammatical, syntax o r spelling errors. Electronically signed by: Panchito Vogel M.D. 12/19/2018 10:04 AM
[2018-12-19 10:06] LABS: INR 1.1 (0.9-1.1); Partial Thromboplastin Time 27.1 Seconds (21.0-31.0); Prothrombin Time 10.9 Seconds (9.0-12.0)
[2018-12-19 10:28] LABS: Albumin Globulin Ratio 0.7 (0.9-2); Albumin Level 2.7 gm/dl (3.4-5.0); BUN Creatinine Ratio 11.7 (10-20); Bilirubin,Total 0.9 mg/dl (0.2-1); Calcium 9.3 mg/dl (8.5-10.1); Creatinine Clr Calc Pharmacy 105.9 ml/min; Est GFR (African American) 112.8; Est GFR (Non-African American) 97.3; Globulin 4.1 gm/dl (2.5-4.0); Potassium 3.6 mmol/L (3.5-5.1); Total Protein 6.9 gm/dl (6.4-8.2)
--- NOTE | 2018-12-19 11:13 | History & Physical Report ---
Date of Service December 19, 2018 Assessment & Plan (1) Positive blood culture: 2 out of 2 blood cultures drawn on 12/18/2018 growing gram-negative bacilli, ID and sensitivities pending. Patient does not meet criteria for sepsis at this time. Source of bacteremia uncertain, but seems that intra-abdominal source most likely as discussed below. No urinary symptoms; UA yesterday did not appear to be infected. Patient had received levofloxacin 12/18 and received cefepime in the ED today. We will change antibiotic coverage to piperacillin/tazobactam to offer better coverage to include gram-negative bacilli, anaerobes, enterococcus. Consult ID. (2) Abdominal pain: Severe epigastric pain for several days. CT of abdomen pelvis performed 12/18 did not show any apparent acute findings. Significance of trace left-sided pneumobilia uncertain, may be chronic. Now with blood cultures growing gram-negative bacilli. Patient is status post cholecystectomy. LFTs have risen over the past 24 hours. Consider cholangitis. IV piperacillin/tazobactam as discussed above. General Surgery and GI consulted. MRCP recommended-pending. (3) Pneumonia: CT of abdomen performed 12/18 demonstrated 3 cm density left lung base. Patient was started on levofloxacin for suspected pneumonia. Now with gram-negative bacteremia as discussed above. Patient denies any significant pulmonary symptoms. Significance of pulmonary abnormality uncertain. Patient is a non-smoker. Antibiotic coverage, empirically with piperacillin/tazobactam then per sensitivities. Patient will need radiographic follow-up, probably by CT, to ensure resolution of the pulmonary density. (4) HTN (hypertension): Hemodynamically stable. Continue lisinopril with hold parameters. (5) Alcohol use: Patient indicates that he drinks several beers a few times a week. Last alcohol consumption was about 1 week ago. No apparent alcohol withdrawal at this time. IV thiamine while n.p.o., then orally. Monitor for signs/symptoms of alcohol withdrawal. (6) DVT (deep venous thrombosis): No anticoagulants at this time- may need invasive diagnostic or therapeutic interventions. SCD's. Ambulate. (7) Discharge planning issues: Anticipated discharge to home. Family Medicine follow-up with Dr. Phillips. History of Present Illness Chief Complaint: fever, abdominal pain, vomiting Primary Care Provider: Moris Phillips MD 63-year-old male followed by Dr. Phillips for Family Medicine. History of hypertension and other problems noted below. Admitted to [facility] April 2014 with gangrenous cholecystitis complicated by E. coli bacteremia. No cholelithiasis or choledocholithiasis appreciated by CT, ultrasound, or MRCP at that time (although ultrasound suggested gallbladder sludge). Laparoscopic cholecystectomy was performed. Seen in ED yesterday complaining of several days of abdominal pain, vomiting, fever. CT of abdomen did not show any apparent acute intra-abdominal processes. White count was 10,840. LFTs were essentially normal except for alkaline phosphatase of 148. Serum lipase was normal. Blood cultures were obtained. However, density at the left lung base was noted and patient was treated with levofloxacin for suspected pneumonia. Microbiology laboratory reported today that blood cultures are growing gram- negative bacilli. Patient was notified and asked to return to the ED for further evaluation and management. He states that he feels slightly better than yesterday, but still has persistent severe abdominal pain. Abdominal pain is described as diffuse, but worse in the epigastrium. He took acetaminophen with minimal, if any, benefit. He vomited a few days ago without gross blood or coffee grounds. No melena or hematochezia. Intermittent fever as high as 103 at home associated with chills and sweats. Denies cough, chest pain, dyspnea. Patient states that he has several beers a few times a week, last alcohol consumption was about a week ago. No signs/symptoms of alcohol withdrawal. Allergies Allergy/AdvReac Type Severity Reaction Status Date / Time No Known Allergies Allergy Mild Verified 12/19/18 09:24 Home Medications Home Medications Medication Instructions Recorded Confirmed Type fluoxetine [Prozac] 40 mg PO QAM 09/12/18 12/19/18 History lisinopril [Zestril] 20 mg PO QAM 09/12/18 12/19/18 History folic acid 1 mg PO QAM 12/18/18 12/19/18 History thiamine HCl (vitamin B1) [Vitamin 100 mg PO QAM 12/18/18 12/19/18 History B-1] levofloxacin [Levaquin] 750 mg PO QAM 12/19/18 12/19/18 History pantoprazole 40 mg PO QAM 12/19/18 12/19/18 History ranitidine HCl 150 mg PO QAM 12/19/18 12/19/18 History Past Med/Surg History Medical History Alcohol use (Chronic) Tobacco use (Chronic) Depression (Chronic) HTN (hypertension) (Chronic) Dyslipidemia (Chronic) Surgical History History of back surgery (Chronic) S/P laparoscopic cholecystectomy (Chronic) S/P tonsillectomy (Chronic) H/O vasectomy (Chronic) H/O arthroscopy of knee (Chronic) Family History Uncle Coronary heart disease Father Stroke Social History Preferred Language: Maltese Communication Ability: Effective 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 Beliefs That Will Affect Care: None Current Living Situation: Spouse Feels Safe at Home: Yes Smoking Status: Never smoker Tobacco Type: smokeless tobacco ; Second Hand Exposure: No ; Hx Alcohol Use: Yes Alcohol type: beer Hx Substance Use: Yes substance use type: marijuana Substance Use Type Other:: OCCASIONALLY Last Used Substance: Unknown Review of Systems Constitutional: + fever and + malaise; no weight loss Respiratory: as per Subjective / HPI Cardiovascular: no chest pain, no dyspnea and no palpitations Gastrointestinal: as per Subjective / HPI Genitourinary: no dysuria Physical Exam Constitutional: WD/WN, vitals as above no acute distress Eyes: PERRL, conjunctivae normal, anicteric sclerae ENMT: external ear and nose normal, oropharynx normal Mouth: + dentition abnormality (upper dentures; lower dentition poor) Neck: trachea midline, no thyromegaly Respiratory: normal respiratory effort, lungs clear to auscultation Cardiovascular: Rate/Rhythm: regular rate Heart Sounds: no gallop, no murmur and no cardiac rub Vessels: no JVD Extremities: normal capillary refill; no calf tenderness and no edema Gastrointestinal (Abdomen): Inspection/Auscultation: + hypoactive bowel sounds Percussion/Palpation: + abdomen tender (moderate-severe epigastric tenderness), + guarding and abdomen soft; no hepatomegaly Musculoskeletal: Head/Neck/Chest: neck supple Extremities: strength 5/5 throughout; no cyanosis and no clubbing Skin: no rashes, warm and dry Neurologic: PERRL, EOMI no facial palsy no dysarthria or aphasia patellar DTR's 2/2 bilat Psychiatric: Orientation: alert and oriented x 3 Affect: euthymic affect Lymphatic: no cervical lymphadenopathy Results & Data Vital Signs (Past 12 Hours) Vital Signs Temp Pulse Pulse Resp BP BP Pulse Ox 12/19/18 11:10 77 16 127/81 98 12/19/18 09:57 97 12/19/18 09:15 37.0 C 106 H 20 122/80 97 Laboratory Results Laboratory Results - last 24 hr 12/19/18 12/19/18 12/19/18 09:42 09:42 09:42 WBC 7.93 RBC 4.03 L Hgb 12.7 L Hct 36.3 L MCV 90.1 MCH 31.5 MCHC 35.0 RDW Std Deviation 41.2 RDW Coeff of Panda 12.5 Plt Count 185 MPV 9.9 Immature Gran % (Auto) 0.4 Neut % (Auto) 74.8 Lymph % (Auto) 10.7 [place] % (Auto) 11.6 Eos % (Auto) 2.4 Baso % (Auto) 0.1 Immature Gran # (Auto) 0.03 H Neut # (Auto) 5.93 Lymph # (Auto) 0.85 L [place] # (Auto) 0.92 H Eos # (Auto) 0.19 Baso # (Auto) 0.01 PT 10.9 INR 1.1 APTT 27.1 PTT Ratio 1.0 Sodium 133 L Potassium 3.6 D Chloride 100 Carbon Dioxide 26 Anion Gap 7.0 BUN 9 D Creatinine 0.73 Est Cr Clr Drug Dosing 105.9 Est GFR ( Amer) 112.8 Est GFR (Non-Af Amer) 97.3 BUN/Creatinine Ratio 11.7 Glucose 126 H Lactate Calcium 9.3 Total Bilirubin 0.9 AST 63 H ALT 112 H Alkaline Phosphatase 281 H Total Protein 6.9 Albumin 2.7 L Globulin 4.1 H Albumin/Globulin Ratio 0.7 L Urine Color Urine Appearance Urine pH Ur Specific [place] Urine Protein Urine Glucose (UA) Urine Ketones Urine Blood Urine Nitrite Urine Bilirubin Urine Urobilinogen Ur Leukocyte Esterase Urine WBC (Auto) Urine RBC (Auto) U Hyaline Cast (Auto) U Epithel Cells (Auto) Urine Bacteria (Auto) 12/19/18 12/19/18 09:42 13:15 WBC RBC Hgb Hct MCV MCH MCHC RDW Std Deviation RDW Coeff of Panda Plt Count MPV Immature Gran % (Auto) Neut % (Auto) Lymph % (Auto) [place] % (Auto) Eos % (Auto) Baso % (Auto) Immature Gran # (Auto) Neut # (Auto) Lymph # (Auto) [place] # (Auto) Eos # (Auto) Baso # (Auto) PT INR APTT PTT Ratio Sodium Potassium Chloride Carbon Dioxide Anion Gap BUN Creatinine Est Cr Clr Drug Dosing Est GFR ( Amer) Est GFR (Non-Af Amer) BUN/Creatinine Ratio Glucose Lactate 1.1 Calcium Total Bilirubin AST ALT Alkaline Phosphatase Total Protein Albumin Globulin Albumin/Globulin Ratio Urine Color Dark Yellow Urine Appearance Clear Urine pH 5.0 Ur Specific [place] 1.020 Urine Protein Trace H Urine Glucose (UA) Negative Urine Ketones Negative Urine Blood 1+ H Urine Nitrite Negative Urine Bilirubin Negative Urine Urobilinogen Negative Ur Leukocyte Esterase Negative Urine WBC (Auto) 1-5 Urine RBC (Auto) 0-4 U Hyaline Cast (Auto) 1-5 U Epithel Cells (Auto) 0-5 Urine Bacteria (Auto) Negative Diagnostic Findings CT ABDOMEN AND PELVIS 12/18/18 FINDINGS: Nodular density within the left lung base on the same day chest x-ray corresponds to a small focal area of consolidation. This measures 3.2 cm. Calcified granuloma within the left lower lobe is again noted. The right lung base is clear. No pneumoperitoneum. No pneumatosis. Posterior decompression fusion within the lower lumbar spine. Old, healed bilateral rib fractures. Cholecystectomy. The liver demonstrates trace left-sided pneumobilia. A few subcentimeter hypodense lesions within the right hepatic lobe are too small to characterize. Calcified granulomas within the spleen. The adrenal glands and pancreas are unremarkable. The kidneys enhance normally. Mild bladder wall thickening which may be chronic. No bowel wall thickening or obstruction. Normal appendix. IMPRESSION: 1. No bowel wall thickening or obstruction. 2. Normal appendix. 3. Mild bladder wall thickening. This may be chronic. 4. Nodular density on the same day chest x-ray corresponds to a 3.2 cm focal area of consolidation. This may represent a small focus of inflammatory/infectious change. 5. Additional findings as described above. Electronically signed by: David Hodgson M.D. 12/18/2018 3:06 PM PORTABLE CHEST X-RAY 12/19/18 FINDINGS: Cardiomediastinal and hilar silhouettes are within normal limits. No pneumothorax, pleural effusion or overt pulmonary edema. Minimal consolidation about the inferior segment lingula redemonstrated. Calcified granulomata about the basal left lower lobe. Degenerative changes of the shoulders and spine. IMPRESSION: 1. Unchanged minimal consolidation of the inferior segment lingula suggestive of atelectasis/scarring or mild pneumonitis. 2. Prior granulomatous disease. The above report was generated using voice recognition software. It may contain grammatical, syntax or spelling errors. Electronically signed by: Panchito Vogel M.D. 12/19/2018 10:04 AM (1) Abdominal pain Abdominal location: generalized Qualified Code(s): R10.84 - Generalized abdominal pain (2) Pneumonia Laterality: unspecified laterality Lung location: unspecified part of lung Pneumonia type: due to unspecified organism Qualified Code(s): J18.9 - Pneumonia, unspecified organism (3) HTN (hypertension) Hypertension type: unspecified Qualified Code(s): I10 - Essential (primary) hypertension
--- NOTE | 2018-12-19 12:59 | Surgery Consultation ---
Date of Consultation December 19, 2018 Assessment & Plan (1) Sepsis: 63-year-old male with abdominal pain, fevers, normalized white blood cell count, and mild transaminitis with gram-negative bacilli bacteremia from unknown source. Imaging is overall unremarkable except for some pneumobilia on the left side of the liver. No peritonitis. Source of the bacteremia and symptoms is unknown at this time. Agree with admission for IV antibiotics No acute surgical intervention indicated Recommend gastroenterology consult, consider infectious disease consult as well Surgery will follow, call with questions or concerns Present on Admission?: Yes (2) Abdominal pain: (3) Alcohol use: (4) S/P laparoscopic cholecystectomy: History of Present Illness History of Present Illness . Right upper quadrant ultrasound was performed and showed no significant abnormality.63-year-old male presented to the emergency department after being called back for positive blood cultures. He presented yesterday after having 1 to 2 weeks of generalized abdominal pain with nausea and vomiting. He reports some episodes similar to this in the past but these were not that bad. He said he had a colonoscopy that was normal 5 years ago. He had a laparoscopic cholecystectomy performed several years ago. He has been having bowel movements. Denies any jaundice or acholic stool. He says he has been having fevers on and off for the past week. He presented yesterday to the emergency department and had an elevated white count. Right upper quadrant ultrasound was unremarkable. A CT scan was performed and showed some pneumobilia, mild bladder wall thickening, and small lung consolidation but no significant abnormalities. His blood cultures grew back 4 out of 4 bottles of gram-negative bacilli and he was called back to the emergency department. He is still uncomfortable and complains of generalized abdominal pain. This morning his white blood cell count is normal, however he has a transaminitis with a normal bilirubin. Allergies Allergy/AdvReac Type Severity Reaction Status Date / Time No Known Allergies Allergy Mild Verified 12/19/18 09:24 Home Medications Home Medications Medication Instructions Recorded Confirmed Type fluoxetine [Prozac] 40 mg PO QAM 09/12/18 12/19/18 History lisinopril [Zestril] 20 mg PO QAM 09/12/18 12/19/18 History folic acid 1 mg PO QAM 12/18/18 12/19/18 History thiamine HCl (vitamin B1) [Vitamin 100 mg PO QAM 12/18/18 12/19/18 History B-1] levofloxacin [Levaquin] 750 mg PO QAM 12/19/18 12/19/18 History pantoprazole 40 mg PO QAM 12/19/18 12/19/18 History ranitidine HCl 150 mg PO QAM 12/19/18 12/19/18 History Patient History Medical History Alcohol use (Chronic) Tobacco use (Chronic) Depression (Chronic) HTN (hypertension) (Chronic) Dyslipidemia (Chronic) Surgical History History of back surgery (Chronic) S/P laparoscopic cholecystectomy (Chronic) S/P tonsillectomy (Chronic) H/O vasectomy (Chronic) H/O arthroscopy of knee (Chronic) Family History Uncle Coronary heart disease Father Stroke Social History Preferred Language: Swiss Communication Ability: Effective Breeding Manager Required: No Beliefs That Will Affect Care: None Current Living Situation: Spouse Feels Safe at Home: Yes Smoking Status: Never smoker Tobacco Type: smokeless tobacco ; Hx Alcohol Use: Yes Alcohol type: beer Hx Substance Use: Yes substance use type: marijuana Substance Use Type Other:: OCCASIONALLY Last Used Substance: Days (ago) Review of Systems Review of Systems: All systems reviewed & are unremarkable except as noted in HPI & below Constitutional: + fever and + chills Gastrointestinal: + abdominal pain, + nausea and + vomiting Physical Exam Constitutional: WD/WN, vitals as above no acute distress Eyes: PERRL, conjunctivae normal, anicteric sclerae ENMT: external ear and nose normal, oropharynx normal Neck: trachea midline, no thyromegaly Respiratory: normal respiratory effort, lungs clear to auscultation Cardiovascular: RRR, no murmur, no edema Gastrointestinal (Abdomen): Percussion/Palpation: + abdomen tender (Diffuse mild tenderness to palpation, slightly worse on the right side.) and abdomen soft; no guarding, abdomen not rigid, no hepatosplenomegaly and no hernia Musculoskeletal: no cyanosis or clubbing, extremities motor strength 5/5 Skin: no rashes, warm and dry Neurologic: PERRL, EOMI, accommodation nl, no face palsy, no dysarthria Psychiatric: A+Ox3, euthymic affect Lymphatic: no cervical or axillary lymphadenopathy Results & Data Vital Signs (Past 12 Hours) Vital Signs Temp Pulse Pulse Resp BP BP Pulse Ox 12/19/18 11:10 77 16 127/81 98 12/19/18 09:57 97 12/19/18 09:15 37.0 C 106 H 20 122/80 97 Laboratory Results Laboratory Results - last 24 hr 12/19/18 12/19/18 12/19/18 09:42 09:42 09:42 WBC 7.93 RBC 4.03 L Hgb 12.7 L Hct 36.3 L MCV 90.1 MCH 31.5 MCHC 35.0 RDW Std Deviation 41.2 RDW Coeff of Panda 12.5 Plt Count 185 MPV 9.9 Immature Gran % (Auto) 0.4 Neut % (Auto) 74.8 Lymph % (Auto) 10.7 [place] % (Auto) 11.6 Eos % (Auto) 2.4 Baso % (Auto) 0.1 Immature Gran # (Auto) 0.03 H Neut # (Auto) 5.93 Lymph # (Auto) 0.85 L [place] # (Auto) 0.92 H Eos # (Auto) 0.19 Baso # (Auto) 0.01 PT 10.9 INR 1.1 APTT 27.1 PTT Ratio 1.0 Sodium 133 L Potassium 3.6 D Chloride 100 Carbon Dioxide 26 Anion Gap 7.0 BUN 9 D Creatinine 0.73 Est Cr Clr Drug Dosing 105.9 Est GFR ( Amer) 112.8 Est GFR (Non-Af Amer) 97.3 BUN/Creatinine Ratio 11.7 Glucose 126 H Lactate Calcium 9.3 Total Bilirubin 0.9 AST 63 H ALT 112 H Alkaline Phosphatase 281 H Total Protein 6.9 Albumin 2.7 L Globulin 4.1 H Albumin/Globulin Ratio 0.7 L 12/19/18 09:42 WBC RBC Hgb Hct MCV MCH MCHC RDW Std Deviation RDW Coeff of Panda Plt Count MPV Immature Gran % (Auto) Neut % (Auto) Lymph % (Auto) [place] % (Auto) Eos % (Auto) Baso % (Auto) Immature Gran # (Auto) Neut # (Auto) Lymph # (Auto) [place] # (Auto) Eos # (Auto) Baso # (Auto) PT INR APTT PTT Ratio Sodium Potassium Chloride Carbon Dioxide Anion Gap BUN Creatinine Est Cr Clr Drug Dosing Est GFR ( Amer) Est GFR (Non-Af Amer) BUN/Creatinine Ratio Glucose Lactate 1.1 Calcium Total Bilirubin AST ALT Alkaline Phosphatase Total Protein Albumin Globulin Albumin/Globulin Ratio Blood Culture Aerobic Preliminary 12/19/18-416 Organism 1 Gram negative bacilli Sens Sensitivities to Follow Phoned positive Blood Culture Gram Stain report to REDDY TATE on 12/19/18 at 0415 [place] [id number]. [place] [id number]. Blood Culture Anaerobic Preliminary 12/19/18-416 Organism 1 Gram negative bacilli Sens Sensitivities to Follow Diagnostic Findings US abdomen limited HISTORY: 62 years-old Male r/o Hepatomegaly clinical concern for hepatomegaly COMPARISON: CT abdomen and pelvis 04/20/2016 TECHNIQUE: Multiple real-time sonographic images of the abdominal right upper quadrant were obtained assessing grayscale appearance and color flow FINDINGS: The visualized pancreas is unremarkable. There is increased echogenicity of the liver with poor through transmission suggestive of hepatic steatosis. Liver measures up to 13.6 cm in length. No focal hepatic mass lesions, evidence of cirrhosis or intrahepatic biliary ductal dilation. Common bile duct measures 6 mm. The gallbladder is surgically absent. The imaged right kidney is unremarkable. IMPRESSION: 1. Suggestion of hepatic steatosis without evidence of hepatomegaly. 2. Prior cholecystectomy. ABDOMEN AND PELVIS CT WITH IV CONTRAST CT DOSE: 762.65 mGy.cm HISTORY: Right-sided abdominal pain. Fever. TECHNIQUE: Multiaxial CT images of the abdomen and pelvis were performed following the use of intravenous contrast. A dose lowering technique was utilized adhering to the principles of ALARA. COMPARISON STUDY: Abdomen and pelvis CT 04/20/2016. FINDINGS: Nodular density within the left lung base on the same day chest x-ray corresponds to a small focal area of consolidation. This measures 3.2 cm. Calcified granuloma within the left lower lobe is again noted. The right lung base is clear. No pneumoperitoneum. No pneumatosis. Posterior decompression fusion within the lower lumbar spine. Old, healed bilateral rib fractures. Cholecystectomy. The liver demonstrates trace left-sided pneumobilia. A few subcentimeter hypodense lesions within the right hepatic lobe are too small to characterize. Calcified granulomas within the spleen. The adrenal glands and pancreas are unremarkable. The kidneys enhance normally. Mild bladder wall thickening which may be chronic. No bowel wall thickening or obstruction. Normal appendix. IMPRESSION: 1. No bowel wall thickening or obstruction. 2. Normal appendix. 3. Mild bladder wall thickening. This may be chronic. 4. Nodular density on the same day chest x-ray corresponds to a 3.2 cm focal area of consolidation. This may represent a small focus of inflammatory/infectious change. 5. Additional findings as described above. PG Care Time/CCT Total # of Minutes Spent Total Time Spent with Patient: Total time spent is greater than 50% in coordination of care (as documented) at patient's floor/unit and/or counseling patient: (1) Sepsis Sepsis type: sepsis due to unspecified organism (2) Abdominal pain Abdominal location: unspecified location Qualified Code(s): R10.9 - Unspecified abdominal pain
[2018-12-19 13:32] LABS: Appearance Urine Clear (Clear); Bacteria Urine Automated Negative (Negative); Bilirubin Urine Negative (Negative); Blood Urine 1+ (Negative); Color Urine Dark Yellow; Epithelial Cell Urine Auto 0-5 /lpf (0-5); Glucose Urine UA Negative (Negative); Ketones Urine Negative (Negative); Leukocyte Esterase Urine Negative (Negative); Nitrite Urine Negative (Negative); Protein Urine Trace (Negative); RBC Urine Automated 0-4 /hpf (0-4); Urobilinogen Urine Negative (Negative)
[2018-12-19] MEDS ORDERED: PIPERACILL/TAZOBAC CONSULT ACTIVE PRN (13:35)
[2018-12-19] MEDS ORDERED: PIPERACILLIN/TAZOBACTAM 3.375 GM in DEXTROSE 5% 100 ML IV ONE (14:00)
[2018-12-19] MEDS ORDERED: PIPERACILLIN/TAZOBACTAM 4.5 GM in DEXTROSE 5% 100 ML IV ONE (14:00)
[2018-12-19] MEDS ORDERED: ONDANSETRON HCL 6 MG in DEXTROSE 5% 50 ML IV PRN (14:36)
[2018-12-19] MEDS: HYDROmorphone INJ 1 MG/ML SYRINGE IV PRN ×3 (15:00→23:55)
[2018-12-19] MEDS: D5NSS + 20MEQ KCL 20 MEQ/1,000 ML BAG IV SCH ×2 (15:02→21:21)
[2018-12-19] MEDS: ACYCLOVIR 5% OINT 15 GM TUBE EXT SCH ×3 (17:57→21:21)
[2018-12-19] MEDS: PIPERACILLIN/TAZOBACTAM 4.5 GM in DEXTROSE 5% 100 ML IV SCH (20:00)
[2018-12-19] MEDS: FAMOTIDINE 20 MG in SYRINGE 3 ML IV SCH (21:16)
[2018-12-20] MEDS: HYDROmorphone INJ 1 MG/ML SYRINGE IV PRN ×3 (04:05→13:05)
[2018-12-20] MEDS: PIPERACILLIN/TAZOBACTAM 4.5 GM in DEXTROSE 5% 100 ML IV SCH ×3 (04:12→19:55)
[2018-12-20] MEDS: D5NSS + 20MEQ KCL 20 MEQ/1,000 ML BAG IV SCH ×3 (06:18→16:27)
[2018-12-20] MEDS: ACYCLOVIR 5% OINT 15 GM TUBE EXT SCH ×6 (06:24→21:57)
[2018-12-20 07:08] LABS: Basophils # (auto) 0.01 K/uL (0-0.2); Basophils % (auto) 0.2 %; Eosinophils # (auto) 0.18 K/uL (0-0.5); Eosinophils % (auto) 3.5 %; Hemoglobin 11.4 g/dL (14.0-18.0); Immature Granulocytes # (auto) 0.02 K/uL (0.00-0.02); Immature Granulocytes % (auto) 0.4 %; Lymphocytes # (auto) 1.15 K/uL (1.2-3.4); Lymphocytes % (auto) 22.2 %; Mean Corpuscular Hgb Conc 34.5 g/dL (32-36); Mean Corpuscular Volume 90.9 fL (80-100); Mean Platelet Volume 9.9 fL (7.4-10.4); Monocytes # (auto) 0.88 K/uL (0.11-0.59); Neutrophils # (auto) 2.94 K/uL (1.4-6.5); Neutrophils % (auto) 56.7 %; Platelet Count 191 K/uL (130-400); RDW Coefficient of Variation 12.5 % (11.5-14.5); RDW Standard Deviation 42.1 fL (36.4-46.3); Red Blood Count 3.63 M/uL (4.7-6.1); White Blood Count 5.18 K/uL (4.8-10.8)
[2018-12-20 07:41] LABS: Albumin Level 2.5 gm/dl (3.4-5.0); BUN Creatinine Ratio 6.4 (10-20); Calcium 8.6 mg/dl (8.5-10.1); Creatinine Clr Calc Pharmacy 108.9 ml/min; Est GFR (African American) 114.1; Est GFR (Non-African American) 98.5; Magnesium 2.1 mg/dl (1.8-2.4); Potassium 3.8 mmol/L (3.5-5.1)
[2018-12-20 07:43] LABS: Albumin Globulin Ratio 0.7 (0.9-2); Bilirubin,Total 0.6 mg/dl (0.2-1); Globulin 3.8 gm/dl (2.5-4.0); Phosphorus 4.2 mg/dl (2.5-4.9); Total Protein 6.3 gm/dl (6.4-8.2)
--- NOTE | 2018-12-20 08:13 | Magnetic Resonance Report ---
MR MRCP CLINICAL HISTORY: 63 years-old Male presenting with fever, elevated LFT's, bacteremia. TECHNIQUE: Multisequence, multiplanar MR imaging of the abdomen was performed without the use of intr avenous contrast. Dedicated MRCP protocol was utilized. 3-D volumetric and/or maximum intensity proje ction (MIP) images were subsequently reconstructed for review. IV contrast: None. COMPARISON: CT from 12/18/2018. FINDINGS: Localizer images: Unremarkable. Lung bases: Normal heart size. No pericardial or pleural effusion. Lung base clear. Liver: Normal morphology. Mild heterogeneous T2 hyperintense signal within the posterior segments of the right hepatic lobe, nonspecific. No gross evidence of a liver lesion aligned for noncontrast tech nique. Normal flow-related enhancement within the main portal vein. Biliary: An accessory duct likely arising from segment 5 appears to insert on the common hepatic duct or cystic duct remnant, likely a subvesical bile duct. Mild biliary ductal prominence likely a reser voir effect in the post cholecystectomy state. No biliary ductal wall thickening. No choledocholithia sis. Gallbladder surgically absent. Pancreas: Mild parenchymal atrophy. Pancreatic duct nondilated. Spleen: Normal noncontrast appearance. Adrenal glands: Normal noncontrast appearance. Kidneys and ureters: Normal noncontrast appearance. No hydronephrosis. Normal ureters. Bowel: Normal noncontrast appearance. No bowel obstruction. Peritoneal cavity: No free fluid. Lymph nodes: No gross lymphadenopathy allowing for noncontrast technique. Vasculature: Normal noncontrast appearance. Abdominal wall: Normal. Musculoskeletal: Lumbar fusion hardware noted. IMPRESSION: 1. Mild heterogeneity of liver parenchyma within the posterior segments of the right hepatic lobe. T his is nonspecific. Possible underlying mild fibrosis or heterogeneous steatosis are possibilities. 2. Post cholecystectomy changes. Electronically signed by: Mario Wagner M.D. 12/20/2018 8:12 AM
[2018-12-20] MEDS: FLUOXETINE HCL 20 MG CAP PO SCH (08:21)
[2018-12-20] MEDS: FAMOTIDINE 20 MG in SYRINGE 3 ML IV SCH (08:21)
[2018-12-20] MEDS: PANTOprazole 40 MG TAB PO SCH (08:21)
[2018-12-20] MEDS: LISINOPRIL 20 MG TAB PO SCH (08:21)
[2018-12-20] MEDS: FOLIC ACID 1 MG TAB PO SCH (08:21)
[2018-12-20] MEDS ORDERED: THIAMINE HCL 100 MG TAB PO SCH (09:00)
[2018-12-20] MEDS ORDERED: THIAMINE HCL 100 MG in SYRINGE 9 ML IV SCH (09:00)
--- NOTE | 2018-12-20 11:18 | Infectious Disease Consult ---
Date of Consultation December 20, 2018 Assessment & Plan (1) Gram negative sepsis: suspect gi source, follow cultures, await ID/sensitivity of gnr. repeat cultures pending, continue zoysn. History of Present Illness Attending Physician: Krista Moon pt initially seen in ER on 12/18, c/o diffuse abd pain, bloating, n/v. f/c at home, poor po intake. Blood cultures obtained in ER, was d/c home. cultures returned + yesterday for gnr 2/2 sets, was called back for admission. Placed on zosyn, tolerating well and states feeling much better but still c/o bloating but less pain. no n/v/d since admission. LFTS mildly elevated, improving today, MRCP negative, h/o nishant. wbc 10, now 5, creat normal. UA negative, no gu symptoms reported. no cp, sob, cough, mckeon. ct abd 3.2 cm left lung consolidation. repeat cultures pending. currently npo. GI eval pending. Allergies Allergy/AdvReac Type Severity Reaction Status Date / Time No Known Allergies Allergy Mild Verified 12/19/18 09:24 Home Medications Home Medications Medication Instructions Recorded Confirmed Type fluoxetine [Prozac] 40 mg PO QAM 09/12/18 12/19/18 History lisinopril [Zestril] 20 mg PO QAM 09/12/18 12/19/18 History folic acid 1 mg PO QAM 12/18/18 12/19/18 History thiamine HCl (vitamin B1) [Vitamin 100 mg PO QAM 12/18/18 12/19/18 History B-1] levofloxacin [Levaquin] 750 mg PO QAM 12/19/18 12/19/18 History pantoprazole 40 mg PO QAM 12/19/18 12/19/18 History ranitidine HCl 150 mg PO QAM 12/19/18 12/19/18 History Patient History Medical History Alcohol use (Chronic) Tobacco use (Chronic) Depression (Chronic) HTN (hypertension) (Chronic) Dyslipidemia (Chronic) Surgical History History of back surgery (Chronic) S/P laparoscopic cholecystectomy (Chronic) S/P tonsillectomy (Chronic) H/O vasectomy (Chronic) H/O arthroscopy of knee (Chronic) Family History Uncle Coronary heart disease Father Stroke Social History Preferred Language: Kiswahili Communication Ability: Effective 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 Beliefs That Will Affect Care: None Current Living Situation: Spouse Feels Safe at Home: Yes Smoking Status: Never smoker Tobacco Type: smokeless tobacco ; Second Hand Exposure: No ; Hx Alcohol Use: Yes Alcohol type: beer Hx Substance Use: Yes substance use type: marijuana Substance Use Type Other:: OCCASIONALLY Last Used Substance: Unknown Review of Systems Review of Systems: All systems reviewed & are unremarkable except as noted in HPI & below Physical Exam Constitutional: WD/WN, vitals as above Eyes: PERRL, conjunctivae normal, anicteric sclerae ENMT: external ear and nose normal, oropharynx normal Neck: normal visual inspection Respiratory: normal respiratory effort, lungs clear to auscultation Cardiovascular: RRR, no murmur, no edema Gastrointestinal (Abdomen): normal bowel sounds, soft, nontender, no hepatosplenomegaly Inspection/Auscultation: abdomen normal to inspection; abdomen not distended Percussion/Palpation: abdomen soft; abdomen nontender, no guarding and abdomen not rigid Musculoskeletal: no cyanosis or clubbing, extremities motor strength 5/5 Skin: no rashes, warm and dry Psychiatric: A+Ox3, euthymic affect Results & Data Vital Signs (Past 12 Hours) Vital Signs Temp Pulse Resp BP BP Pulse Ox 12/20/18 07:08 36.7 C 64 16 123/75 97 12/19/18 23:45 37.2 C 78 19 155/85 H 94 Laboratory Results Microbiology 12/19/18 09:42 Blood Aerobic Blood Culture - Preliminary No growth in Aerobic bottle after 24 hours. 12/19/18 09:42 Blood Anaerobic Blood Culture - Preliminary No growth in Anaerobic bottle after 24 hours. 12/19/18 09:38 Blood Aerobic Blood Culture - Preliminary No growth in Aerobic bottle after 24 hours. 12/19/18 09:38 Blood Anaerobic Blood Culture - Preliminary No growth in Anaerobic bottle after 24 hours. PG Care Time/CCT Total # of Minutes Spent Total Time Spent with Patient: Total time spent is greater than 50% in coordination of care (as documented) at patient's floor/unit and/or counseling patient:
--- NOTE | 2018-12-20 11:31 | Hospitalist Progress Note ---
Date of Service December 20, 2018 Assessment & Plan (1) Positive blood culture: Patient came in with complaint of abdominal pain, vomiting, fever for several days. Patient was in ED when he had CT abdomen done which showed no acute abdominal process, LFTsnormal except ALP 148, normal serum lipase, blood cultures were obtained chest x-ray showed left lung base density and was treated with levofloxacin for suspected pneumonia. Blood culture came back positive growing gram-negative baths Patient was asked to come back from home. -Blood cultures 2/2 drawn on 12/18/2018 in ED growing gram-negative bacilli -Not septic -Source of bacteremia uncertain, but seems that intra-abdominal source most likely as discussed below. UA - negative -Patient had received levofloxacin 12/18 and received cefepime in the ED --> changed to antibiotic coverage to piperacillin/tazobactam to offer better cove rage to include gram-negative bacilli, anaerobes, enterococcus. Day 2 -Repeat Blood culture x 2 - No growth so far -Consulted ID, GI (2) Abdominal pain: -Severe epigastric pain for several days. -CT of abdomen pelvis performed 12/18 did not show any apparent acute findings. -Now with blood cultures growing gram-negative bacilli. -Patient is status post cholecystectomy. -LFTs have risen over the past 24 hours. -Consider cholangitis. -IV piperacillin/tazobactam - Day 2 -MRCP - Mild heterogeneity of liver parenchyma with posterior segments of right hepatic lobe. This is nonspecific. Possible underlying mild fibrosis or heterogenous steatosis or possibility- Mild -General surgery, ID, GI consulted. Discussed with GI - plan is for HIDA scan, EGD, Colonoscopy (3) Pneumonia: CT of abdomen performed 12/18 demonstrated 3 cm density left lung base. -Patient was started on levofloxacin for suspected pneumonia. -Now with gram-negative bacteremia as discussed above. -No respiratory symptoms, non smoker -Antibiotic coverage, empirically with piperacillin/tazobactam then per sensit ivities. -Patient will need radiographic follow-up, probably by CT, to ensure resolution of the pulmonary density. (4) HTN (hypertension): Hemodynamically stable. -Continue lisinopril with hold parameters. (5) Alcohol use: Patient indicates that he drinks several beers a few times a week. -Last alcohol consumption was about 1 week ago. -No apparent alcohol withdrawal at this time. -Thiamine -Monitor for signs/symptoms of alcohol withdrawal. (6) DVT (deep venous thrombosis): -No anticoagulants at this time- may need invasive diagnostic or therapeutic interventions. -SCD's. -Ambulate. (7) Discharge planning issues: -Medical mx in progress -Anticipated discharge to home. -Family Medicine follow-up with Dr. Phillips. Subjective Patient is feeling better today. Abdominal pain is better. No fever, chills, urinary symptoms, nausea, vomiting. Physical Exam Physical Exam: GENERAL- AAOX3, No acute distress LUNGS- Air entry bilaterally equal. No rales, rhonchi, crackles, wheezes heard. HEART- Regular rate and rhythm. No murmurs ABDOMEN- Soft, mild generalized tenderness + , non distended, Bowel sounds heard. EXTREMITIES- Good peripheral pulses, no edema NEUROMUSCULAR- AAOX3, Grossly no focal deficits Results & Data Vital Signs (Past 12 Hours) Vital Signs Temp Pulse Resp BP BP Pulse Ox 12/20/18 07:08 36.7 C 64 16 123/75 97 12/19/18 23:45 37.2 C 78 19 155/85 H 94 (1) Abdominal pain Abdominal location: generalized Qualified Code(s): R10.84 - Generalized abdominal pain (2) HTN (hypertension) Hypertension type: unspecified Qualified Code(s): I10 - Essential (primary) hypertension (3) Pneumonia Laterality: unspecified laterality Lung location: unspecified part of lung Pneumonia type: due to unspecified organism Qualified Code(s): J18.9 - Pneumonia, unspecified organism
--- NOTE | 2018-12-20 11:43 | Surgery Progress Note ---
Date of Service December 20, 2018 Assessment & Plan (1) Gram negative sepsis: Gram-negative bacteremia with abdominal pain from unknown source, imaging has been essentially negative to date. Overall improved. No acute surgical intervention indicated Follow-up with GI consult Surgery will follow peripherally, please call with questions or concerns (2) Abdominal pain: Subjective 63-year-old male with several weeks of abdominal pain and gram-negative bacilli bacteremia from unknown source. He is feeling much better this morning after antibiotics and denies any abdominal pain. He has not had any fevers and his white blood cell count is normalized. Infectious disease is seen the patient, and GI consult is pending. MRCP performed was negative. Physical Exam Constitutional: WD/WN, vitals as above no acute distress Gastrointestinal (Abdomen): normal bowel sounds, soft, nontender, no hepatosplenomegaly (No tenderness, improved from yesterday) Results & Data Vital Signs (Past 12 Hours) Vital Signs Temp Pulse Resp BP BP Pulse Ox 12/20/18 07:08 36.7 C 64 16 123/75 97 12/19/18 23:45 37.2 C 78 19 155/85 H 94 Laboratory Results Laboratory Results - last 24 hr 12/19/18 12/20/18 12/20/18 13:15 06:39 06:39 WBC 5.18 RBC 3.63 L Hgb 11.4 L Hct 33.0 L MCV 90.9 MCH 31.4 MCHC 34.5 RDW Std Deviation 42.1 RDW Coeff of Panda 12.5 Plt Count 191 MPV 9.9 Immature Gran % (Auto) 0.4 Neut % (Auto) 56.7 Lymph % (Auto) 22.2 [place] % (Auto) 17.0 Eos % (Auto) 3.5 Baso % (Auto) 0.2 Immature Gran # (Auto) 0.02 Neut # (Auto) 2.94 Lymph # (Auto) 1.15 L [place] # (Auto) 0.88 H Eos # (Auto) 0.18 Baso # (Auto) 0.01 Sodium 138 Potassium 3.8 Chloride 103 Carbon Dioxide 29 Anion Gap 6.0 BUN 5 L Creatinine 0.71 Est Cr Clr Drug Dosing 108.9 Est GFR ( Amer) 114.1 Est GFR (Non-Af Amer) 98.5 BUN/Creatinine Ratio 6.4 L Glucose 100 H Calcium 8.6 Phosphorus 4.2 Magnesium 2.1 Total Bilirubin 0.6 AST 51 H ALT 96 H Alkaline Phosphatase 301 H Total Protein 6.3 L Albumin 2.5 L Globulin 3.8 Albumin/Globulin Ratio 0.7 L Lipase 80 Urine Color Dark Yellow Urine Appearance Clear Urine pH 5.0 Ur Specific [place] 1.020 Urine Protein Trace H Urine Glucose (UA) Negative Urine Ketones Negative Urine Blood 1+ H Urine Nitrite Negative Urine Bilirubin Negative Urine Urobilinogen Negative Ur Leukocyte Esterase Negative Urine WBC (Auto) 1-5 Urine RBC (Auto) 0-4 U Hyaline Cast (Auto) 1-5 U Epithel Cells (Auto) 0-5 Urine Bacteria (Auto) Negative Diagnostic Findings MR MRCP CLINICAL HISTORY: 63 years-old Male presenting with fever, elevated LFT's, bacteremia. TECHNIQUE: Multisequence, multiplanar MR imaging of the abdomen was performed without the use of intravenous contrast. Dedicated MRCP protocol was utilized. 3-D volumetric and/or maximum intensity projection (MIP) images were subsequently reconstructed for review. IV contrast: None. COMPARISON: CT from 12/18/2018. FINDINGS: Localizer images: Unremarkable. Lung bases: Normal heart size. No pericardial or pleural effusion. Lung base clear. Liver: Normal morphology. Mild heterogeneous T2 hyperintense signal within the posterior segments of the right hepatic lobe, nonspecific. No gross evidence of a liver lesion aligned for noncontrast technique. Normal flow-related enhancement within the main portal vein. Biliary: An accessory duct likely arising from segment 5 appears to insert on the common hepatic duct or cystic duct remnant, likely a subvesical bile duct. Mild biliary ductal prominence likely a reservoir effect in the post cholecystectomy state. No biliary ductal wall thickening. No choledocholithi asis. Gallbladder surgically absent. Pancreas: Mild parenchymal atrophy. Pancreatic duct nondilated. Spleen: Normal noncontrast appearance. Adrenal glands: Normal noncontrast appearance. Kidneys and ureters: Normal noncontrast appearance. No hydronephrosis. Normal ureters. Bowel: Normal noncontrast appearance. No bowel obstruction. Peritoneal cavity: No free fluid. Lymph nodes: No gross lymphadenopathy allowing for noncontrast technique. Vasculature: Normal noncontrast appearance. Abdominal wall: Normal. Musculoskeletal: Lumbar fusion hardware noted. IMPRESSION: 1. Mild heterogeneity of liver parenchyma within the posterior segments of the right hepatic lobe. This is nonspecific. Possible underlying mild fibrosis or heterogeneous steatosis are possibilities. 2. Post cholecystectomy changes. PG Care Time/CCT Total # of Minutes Spent Total Time Spent with Patient: Total time spent is greater than 50% in coordination of care (as documented) at patient's floor/unit and/or counseling patient: (1) Abdominal pain Abdominal location: generalized Qualified Code(s): R10.84 - Generalized abdominal pain
[2018-12-20 14:22] LABS: Ferritin 455.4 ng/ml (8-388)
[2018-12-20 14:38] LABS: Hepatitis B Surface Antigen Neg (Neg)
--- NOTE | 2018-12-20 14:38 | Gastroenterology Progress Note ---
Date of Service December 20, 2018 Subjective Attg add: I interviewed and examined pt, reviewed chart and labs. Please see midlevel notes for full details. Pt with 1-2 weeks abd pain, n/v, intermittent fever. On presentation, found to have cholestatic LFTS, with rising alk phose now up to 300. Bld cx 2// GNR. On Zosyn, improved. Had CT, MRCP -- no clear source. Unexplained GNR sepsis - unclear etiology, although high alk phos suggests biliary source. Will request EGD, given upper abd pain and Cscopy, HIDA to w/u GNR sepsis. Results & Data Vital Signs (Past 12 Hours) Vital Signs Temp Pulse Resp BP Pulse Ox 12/20/18 07:08 36.7 C 64 16 123/75 97
--- NOTE | 2018-12-20 14:48 | Gastrointestinal Consultation ---
Date of Consultation December 20, 2018 Assessment & Plan (1) Bacteremia due to Gram-negative bacteria: (2) Abdominal pain: Pt is a 63 y/o male w abd pain, n/v, diarrhea (improved), gram negative bacilli bacteremia, elevated LFTs. CT abd/pelvis and MRCP w/o obvious signs of colitis. He is s/p cholecystectomy w mild prominence of bile duct but no choledocholithiasis. Liver w signs of possible fibrosis vs steatosis - Check stool cx, Cdiff, O&P - CL diet today - NPO after midnight for EGD/colonoscopy tomorrow. Bowel prep ordered - Check GGT, alkaline phosphatase fractionated - Obtain HIDA - Trend LFTs; Check serologies to r/o AIH, acute hepatitis, viral infections, hereditary liver diseases. Will consider outpt EUS guided liver bx. History of Present Illness Reason for Consultation: Abd pain, bacteremia Requesting Physician: Dr. Krista Moon Attending Physician: Dr. Gaye Fields History of Present Illness Pt is a 63 y/o male w PMHx of HTN, dyslipidemia, who presented w c/o nausea, vomiting, abd pain, diarrhea started about 1.5 weeks ago. The diarrhea is resolving but other symptoms of abd pain, nausea still persist. Labs notable for mild leukocytosis, LFTs increased, Lipase normal. His initial CT abd/pelvis showed possible signs of pneumonia and he was treated w Levofloxacin. However his blood cx is now growing gram negative bacilli and suspected to be of GI source. Pt denies any new med changes, antibx. He reported had similar n/v, diar anna symptoms 2 weeks ago. He admitted to subjective fever at home. Currently feels quite hungry and would like to eat something. He had hx of colonoscopy in 2018 which was unremarkable. Drinks ETOH up to 8 cans of beer daily. Denies NSAIDs. He had MRCP done to r/o biliary infection which showed "mild heterogeneity of liver parenchyma within the posterior segments of the right hepatic lobe. This is nonspecific. Possible underlying mild fibrosis or heterogeneous steatosis are possibilities. He is s/p cholecystectomy, no choledocholithiasis" Allergies Allergy/AdvReac Type Severity Reaction Status Date / Time No Known Allergies Allergy Mild Verified 12/19/18 09:24 Home Medications Home Medications Medication Instructions Recorded Confirmed Type fluoxetine [Prozac] 40 mg PO QAM 09/12/18 12/19/18 History lisinopril [Zestril] 20 mg PO QAM 09/12/18 12/19/18 History folic acid 1 mg PO QAM 12/18/18 12/19/18 History thiamine HCl (vitamin B1) [Vitamin 100 mg PO QAM 12/18/18 12/19/18 History B-1] levofloxacin [Levaquin] 750 mg PO QAM 12/19/18 12/19/18 History pantoprazole 40 mg PO QAM 12/19/18 12/19/18 History ranitidine HCl 150 mg PO QAM 12/19/18 12/19/18 History Patient History Medical History Alcohol use (Chronic) Tobacco use (Chronic) Depression (Chronic) HTN (hypertension) (Chronic) Dyslipidemia (Chronic) Surgical History History of back surgery (Chronic) S/P laparoscopic cholecystectomy (Chronic) S/P tonsillectomy (Chronic) H/O vasectomy (Chronic) H/O arthroscopy of knee (Chronic) Family History Uncle Coronary heart disease Father Stroke Social History Preferred Language: Congolese Communication Ability: Effective 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 Beliefs That Will Affect Care: None Current Living Situation: Spouse Feels Safe at Home: Yes Smoking Status: Never smoker Tobacco Type: smokeless tobacco ; Second Hand Exposure: No ; Hx Alcohol Use: Yes Alcohol type: beer Hx Substance Use: Yes substance use type: marijuana Substance Use Type Other:: OCCASIONALLY Last Used Substance: Unknown Review of Systems Review of Systems: All systems reviewed & are unremarkable except as noted in HPI & below Physical Exam Constitutional: WD/WN, vitals as above well groomed, cooperative and comfortable Eyes: PERRL, conjunctivae normal, anicteric sclerae ENMT: external ear and nose normal, oropharynx normal Respiratory: normal respiratory effort, lungs clear to auscultation Cardiovascular: RRR, no murmur, no edema Gastrointestinal (Abdomen): Percussion/Palpation: + abdomen tender (mild TTP across upper abd ) and abdomen soft; no guarding Skin: no rashes, warm and dry no jaundice Neurologic: Motor/Sensory: no asterixis Psychiatric: A+Ox3, euthymic affect Lymphatic: no lymphedema Results & Data Vital Signs (Past 12 Hours) Vital Signs Temp Pulse Resp BP Pulse Ox 12/20/18 07:08 36.7 C 64 16 123/75 97 (1) Abdominal pain Abdominal location: generalized Qualified Code(s): R10.84 - Generalized abdominal pain
[2018-12-20 15:07] LABS: Hepatitis C IgG 13Yrs+Old_Rflx Neg (Neg)
[2018-12-20] MEDS ORDERED: BISACODYL 5 MG TABEC PO ONE (17:00)
[2018-12-20] MEDS ORDERED: POLYETHYLENE (MIRALAX) 17 GM PACK PO ONE ×2 (17:00→21:00)
[2018-12-21] MEDS: PIPERACILLIN/TAZOBACTAM 4.5 GM in DEXTROSE 5% 100 ML IV SCH ×3 (03:42→19:50)
[2018-12-21] MEDS: ACYCLOVIR 5% OINT 15 GM TUBE EXT SCH ×6 (06:06→22:45)
[2018-12-21] MEDS: D5NSS + 20MEQ KCL 20 MEQ/1,000 ML BAG IV SCH ×2 (06:06→19:51)
[2018-12-21 07:48] LABS: Hematocrit (blood only) 36.2 % (42-52); Hemoglobin 12.4 g/dL (14.0-18.0); Mean Corpuscular Hgb Conc 34.3 g/dL (32-36); Mean Corpuscular Volume 90.7 fL (80-100); Mean Platelet Volume 9.7 fL (7.4-10.4); Platelet Count 221 K/uL (130-400); RDW Coefficient of Variation 12.6 % (11.5-14.5); RDW Standard Deviation 41.9 fL (36.4-46.3); Red Blood Count 3.99 M/uL (4.7-6.1)
[2018-12-21 08:19] LABS: Albumin Level 2.8 gm/dl (3.4-5.0); BUN Creatinine Ratio 2.6 (10-20); Calcium 9.3 mg/dl (8.5-10.1); Creatinine Clr Calc Pharmacy 105.9 ml/min; Est GFR (African American) 112.8; Est GFR (Non-African American) 97.3; Potassium 4.3 mmol/L (3.5-5.1)
[2018-12-21 08:22] LABS: Albumin Globulin Ratio 0.7 (0.9-2); Bilirubin,Total 0.4 mg/dl (0.2-1); Total Protein 6.8 gm/dl (6.4-8.2)
--- NOTE | 2018-12-21 09:04 | Nuclear Medicine Report ---
NUCLEAR HEPATOBILIARY SCAN CLINICAL HISTORY: Bacteremia. Elevated hepatic transaminases. Status post cholecystectomy. Clinical c oncern for bile leak. COMPARISON STUDY: Abdominal CT dated 12/18/2018. MRCP dated 12/19/2018. TECHNIQUE: Dynamic images of the liver and anterior abdomen were obtained every 5 minutes for a total of 30 minutes following the IV administration of 5.5mCi of technetium 99m Choletec. An additional st atic image was acquired at 45 minutes after having the patient sit upright. FINDINGS: The hepatobiliary scan shows prompt and homogeneous hepatic uptake. There is visualized act ivity within the intra and extrahepatic biliary tree at 10 minutes. There is normal biliary to bowel transit, with small bowel visualized by 15 minutes. There is no pooling of tracer within the gallbla dder fossa. IMPRESSION: There is no scintigraphic evidence of bile leak as clinically queried. Electronically signed by: Cory Cohen M.D. 12/21/2018 9:02 AM
[2018-12-21] MEDS: FOLIC ACID 1 MG TAB PO SCH (09:13)
[2018-12-21] MEDS: LISINOPRIL 20 MG TAB PO SCH (09:13)
[2018-12-21] MEDS: FLUOXETINE HCL 20 MG CAP PO SCH (09:14)
[2018-12-21] MEDS: THIAMINE HCL 100 MG TAB PO SCH (09:14)
[2018-12-21] MEDS: PANTOprazole 40 MG TAB PO SCH (09:14)
--- NOTE | 2018-12-21 12:05 | History & Physical Bridge Note ---
Date of Service December 21, 2018 History & Physical Bridge Note I have examined the patient, reviewed the History & Physical and in the interval since the performance of the History & Physical I have noted the following changes of clinical significance: no changes noted Pt had completed bowel prep and made NPO since midnight in preparation for EGD and colonoscopy today. He feels tired and having increased abd pain. + nausea but no vomiting. VS, Labs reviewed. LFTs trending down. Hep B, C negative, other serologies negative. Cdiff negative, stool cx pending. Blood cx growing Ecoli Exam: Drowsy, but answering questions CTA bilateral lungs HRR no murmur or gallops Abd soft, TTP diffusely, hypoactive bowel sounds No edema on extremities GI will further recs after EGD/Colonoscopy are completed. Attg add: I interviewed and examined pt, reviewed chart and labs, agree with plan as above
--- NOTE | 2018-12-21 12:58 | Hospitalist Progress Note ---
Date of Service December 21, 2018 Assessment & Plan (1) Positive blood culture: Patient came in with complaint of abdominal pain, vomiting, fever for several days. Patient was in ED when he had CT abdomen done which showed no acute abdominal process, LFTsnormal except ALP 148, normal serum lipase, blood cultures were obtained chest x-ray showed left lung base density and was treated with levofloxacin for suspected pneumonia. Blood culture came back positive growing gram-negative baths Patient was asked to come back from home. -Blood cultures 2/2 drawn on 12/18/2018 in ED growing gram-negative bacilli -Not septic -Source of bacteremia uncertain, but seems that intra-abdominal source more likely as discussed below. UA - negative -Patient had received levofloxacin 12/18 and received cefepime in the ED --> changed to piperacillin/tazobactam to offer better coverage to include gram- negative bacilli, anaerobes, enterococcus. Day 3 -Repeat Blood culture x 2 - No growth so far -Consulted ID, GI (2) Abdominal pain: -Severe epigastric pain for several days. -CT of abdomen pelvis performed 12/18 did not show any apparent acute findings. -Now with blood cultures growing gram-negative bacilli. -Patient is status post cholecystectomy. -With elevated LFTs and gram-negative bacteremia, cholangitis was considered. LFTs are now trending down -IV piperacillin/tazobactam - Day 3 -Work up- MRCP - Mild heterogeneity of liver parenchyma with posterior segments of right hepatic lobe. This is nonspecific. Possible underlying mild fibrosis or heterogenous steatosis or possibility- Mild. HIDA Scan- Negative -General surgery, ID, GI consulted. Discussed with GI - plan is for EGD, Colonoscopy today (3) Pneumonia: CT of abdomen performed 12/18 demonstrated 3 cm density left lung base. -Patient was started on levofloxacin for suspected pneumonia. -Now with gram-negative bacteremia as discussed above. -No respiratory symptoms, non smoker -Antibiotic coverage, empirically with piperacillin/tazobactam then per sensitivities. -Patient will need radiographic follow-up, probably by CT, to ensure resolution of the pulmonary density. (4) HTN (hypertension): Hemodynamically stable. -Continue lisinopril with hold parameters. (5) Alcohol use: Patient indicates that he drinks several beers a few times a week. -Last alcohol consumption was about 1 week ago. -No apparent alcohol withdrawal at this time. -Thiamine to be continued -Monitor for signs/symptoms of alcohol withdrawal. (6) DVT (deep venous thrombosis): -No anticoagulants at this time- may need invasive diagnostic or therapeutic interventions. -SCD's. -Ambulate. (7) Discharge planning issues: -Medical mx in progress -Anticipated discharge to home. -Family Medicine follow-up with Dr. Phillips. For EGD/Colonoscopy today. Discussed case with GI. Updated by bedside. Subjective Patient is c/o generalized weakness today. Has generalized abdominal pain. No fever, chills, urinary symptoms, nausea, vomiting. Physical Exam Physical Exam: GENERAL- Sleepy today, No acute distress LUNGS- Air entry bilaterally equal. No rales, rhonchi, crackles, wheezes heard. HEART- Regular rate and rhythm. No murmurs ABDOMEN- Soft, mild generalized tenderness + , non distended, Bowel sounds heard. EXTREMITIES- Good peripheral pulses, no edema NEUROMUSCULAR- AAOX3, Grossly no focal deficits Results & Data Vital Signs (Past 12 Hours) Vital Signs Temp Pulse Resp BP Pulse Ox 12/21/18 07:09 36.6 C 53 L 18 146/88 H 96 (1) Abdominal pain Abdominal location: generalized Qualified Code(s): R10.84 - Generalized abdominal pain (2) Pneumonia Laterality: unspecified laterality Lung location: unspecified part of lung Pneumonia type: due to unspecified organism Qualified Code(s): J18.9 - Pneumonia, unspecified organism (3) HTN (hypertension) Hypertension type: unspecified Qualified Code(s): I10 - Essential (primary) hypertension
[2018-12-21] MEDS ORDERED: PROPOFOL IV EMULSION 10 MG/ML 20 ML VIAL IV ONE (13:23)
[2018-12-21] MEDS ORDERED: LIDOCAINE HCL 2% 2 ML VIAL/AMP(20MG/ML) INFIL ONE (13:23)
--- NOTE | 2018-12-21 13:37 | Anesthesiology Consultation ---
Date of Service December 21, 2018 Assessment & Plan (1) Encounter for pre-operative examination: Chart Review Chart Review: Acceptable Risk for Surgery and Patient NOT seen in Pre Admission Testing Consults Requested none History Surgery Operation Date: 12/21/18 08:30 Proposed Procedures p Colonscopy EGD Dr Fields - Gaye Fields Height/Weight Height: 5 ft 7 in Weight: 86.4 kg Allergies Allergy/AdvReac Type Severity Reaction Status Date / Time No Known Allergies Allergy Mild Verified 12/19/18 09:24 Medications Home Medications Medication Instructions Recorded Confirmed Last Taken fluoxetine [Prozac] 40 mg PO QAM 09/12/18 12/19/18 12/18/18 lisinopril [Zestril] 20 mg PO QAM 09/12/18 12/19/18 12/18/18 folic acid 1 mg PO QAM 12/18/18 12/19/18 12/18/18 thiamine HCl (vitamin B1) [Vitamin 100 mg PO QAM 12/18/18 12/19/18 12/18/18 B-1] levofloxacin [Levaquin] 750 mg PO QAM 12/19/18 12/19/18 12/18/18 pantoprazole 40 mg PO QAM 12/19/18 12/19/18 12/19/18 ranitidine HCl 150 mg PO QAM 12/19/18 12/19/18 12/19/18 Active Medications Generic Name Dose Route Start Last Admin Trade Name Freq PRN Reason Stop Dose Admin Acyclovir 1 appln 12/19/18 16:00 12/21/18 13:00 Zovirax 5% EXT 12/29/18 15:59 1 appln [id number] SOPHIA Administration Fluoxetine HCl 40 mg 12/20/18 09:00 12/21/18 09:14 Prozac PO 01/19/19 08:59 40 mg QAM SOPHIA Administration Folic Acid 1 mg 12/20/18 09:00 12/21/18 09:13 Folvite PO 01/19/19 08:59 1 mg QAM SOPHIA Administration Piperacillin Sod/Tazobactam 120 mls @ 30 mls/hr 12/19/18 20:00 12/21/18 12:19 Sod 4.5 gm/ Dextrose IV 01/02/19 19:59 30 mls/hr Q8H SOPHIA Administration Protocol Potassium Chloride/Dextrose/Sod Cl 20 meq in 1,000 mls @ 75 mls/hr 12/19/18 14:00 12/21/18 06:06 D5nss + 20meq Kcl IV 01/18/19 13:59 75 mls/hr .[id number] SOPHIA Administration Ondansetron HCl 6 mg/ Dextrose 53 mls @ 200 mls/hr 12/19/18 14:36 12/19/18 16:27 IV 01/18/19 14:35 Infused Q6H PRN Infusion Nausea And Vomiting Lisinopril 20 mg 12/20/18 09:00 12/21/18 09:13 Zestril PO 01/19/19 08:59 20 mg QAM SOPHIA Administration Pantoprazole Sodium 40 mg 12/20/18 09:00 12/21/18 09:14 Protonix PO 01/19/19 08:59 40 mg QAM SOPHIA Administration Thiamine HCl 100 mg 12/21/18 09:00 12/21/18 09:14 Vitamin B-1 PO 01/20/19 08:59 100 mg QAM SOPHIA Administration NPO Date Last Intake of Fluids: 12/21/18 Time Last Intake of Fluids: 09:15 Last Intake of Fluids Comment: sip with meds Date Last Intake of Solids: 12/19/18 Time Last Intake of Solids: 18:30 Past Medical History Medical History Alcohol use (Chronic) Tobacco use (Chronic) Depression (Chronic) HTN (hypertension) (Chronic) Dyslipidemia (Chronic) Past Family History Family History Uncle Coronary heart disease Father Stroke Past Surgical History Surgical History History of back surgery (Chronic) S/P laparoscopic cholecystectomy (Chronic) S/P tonsillectomy (Chronic) H/O vasectomy (Chronic) H/O arthroscopy of knee (Chronic) Social History Smoking Status: Never smoker tobacco type: smokeless tobacco Do You Dip or Chew Tobacco: Yes (2 cans a week) Hx Alcohol Use: Yes Alcohol type: beer alcohol intake frequency: a few times a week Hx Substance Use: Yes substance use type: marijuana Substance Use Type Other:: OCCASIONALLY Last Used Substance: Unknown Physical Exam Vital Signs Last Vital Signs Temp 36.9 C 12/21/18 13:19 Pulse 57 L 12/21/18 13:19 Resp 18 12/21/18 13:19 BP 142/89 H 12/21/18 13:19 Pulse Ox 97 12/21/18 13:19 Testing Laboratory Results 12/21/18 07:32 12/21/18 07:32 PT 10.9 Seconds (9.0-12.0) 12/19/18 09:42 INR 1.1 (0.9-1.1) 12/19/18 09:42 APTT 27.1 Seconds (21.0-31.0) 12/19/18 09:42 Urine Color Dark Yellow 12/19/18 13:15 Urine Appearance Clear (Clear) 12/19/18 13:15 Urine pH 5.0 (4.5-7.5) 12/19/18 13:15 Ur Specific [place] 1.020 (1.000-1.030) 12/19/18 13:15 Urine Protein Trace (Negative) H 12/19/18 13:15 Urine Glucose (UA) Negative (Negative) 12/19/18 13:15 Urine Ketones Negative (Negative) 12/19/18 13:15 Urine Nitrite Negative (Negative) 12/19/18 13:15 Ur Leukocyte Esterase Negative (Negative) 12/19/18 13:15 Urine WBC (Auto) 1-5 /hpf (0-5) 12/19/18 13:15 Urine RBC (Auto) 0-4 /hpf (0-4) 12/19/18 13:15 U Hyaline Cast (Auto) 1-5 /lpf (0-5) 12/19/18 13:15 U Epithel Cells (Auto) 0-5 /lpf (0-5) 12/19/18 13:15 Urine Bacteria (Auto) Negative (Negative) 12/19/18 13:15 12/19/18 09:42 Aerobic Blood Culture - Preliminary Blood No growth in Aerobic bottle after 48 hours. Anaerobic Blood Culture - Preliminary No growth in Anaerobic bottle after 48 hours. 12/19/18 09:38 Aerobic Blood Culture - Preliminary Blood No growth in Aerobic bottle after 48 hours. Anaerobic Blood Culture - Preliminary No growth in Anaerobic bottle after 48 hours.
--- NOTE | 2018-12-21 14:26 | GI REPORT ---
Patient Name: Shahid Jorge Procedure Date: 12/21/2018 1:59 PM Date of : 1955 Admit Type: Inpatient Age: 63 Gender: Male Attending MD: Gaye Fields MD Procedure: Colonoscopy Providers: Gaye Fields MD Referring MD: Krista Moon Indications: Colitis, presumed infectious Medicines: See the Anesthesia note for documentation of the administered medications Complications: No immediate complications. Estimated Blood Loss: Estimated blood loss: none. Procedure: Pre-Anesthesia Assessment: - ASA Grade Assessment: II - A patient with mild systemic disease. After I obtained informed consent, the scope was passed under direct vision. Throughout the procedure, the patient's blood pressure, pulse, and oxygen saturations were monitored continuously. The scope was introduced through the anus and advanced to the terminal ileum. The colonoscopy was performed without difficulty. The patient tolerated the procedure well. The quality of the bowel preparation was good. Findings: The perianal and digital rectal examinations were normal. A few small-mouthed diverticula were found in the sigmoid colon. A 7 mm polyp was found in the ascending colon. The polyp was sessile. The polyp was removed with a saline injection-lift technique using a hot snare. Resection and retrieval were complete. The exam was otherwise without abnormality. Impression: - Diverticulosis in the sigmoid colon. - One 7 mm polyp in the ascending colon, removed using injection-lift and a hot snare. Resected and retrieved. - The examination was otherwise normal. Recommendation: - Discharge patient to floor. Diet as tolerated. - Recommend consideration of abdominal dopplers. If this test is negative, ok for d/c home after abx completed. Will plan outpt GI followup ,consider EUS and liver bx if alk phos still increased. Gaye Fields M.D. Gaye Fields MD 12/21/2018 2:25:46 PM This report has been signed electronically. Note Initiated On: 12/21/2018 1:59 PM Number of Addenda: 0 I attest to the content of the Intraoperative Record and orders documented therein, exceptions below {[id number]}
--- NOTE | 2018-12-21 14:26 | Infectious Disease Progress Nt ---
Date of Service December 21, 2018 Assessment & Plan (1) Gram negative sepsis: suspect gi source, follow cultures, findings from colonoscopy and EGD. repeat cultures negative, continue zoysn. Subjective Blood cultures growing pansenstive E. coli, tolerating abx ,remains on zoysn for colon and EGD. afebrile. wbc 4. creat 0.7. repeat blood cultures negative. Results & Data Vital Signs (Past 12 Hours) Vital Signs Temp Pulse Resp BP Pulse Ox 12/21/18 13:19 36.9 C 57 L 18 142/89 H 97 12/21/18 07:09 36.6 C 53 L 18 146/88 H 96 Laboratory Results Microbiology 12/20/18 18:25 Stool Escherichia coli Shiga Toxins Test - Preliminary 12/20/18 18:25 Stool Stool Culture - Preliminary No Salmonella isolated to date, No Shigella isolated to date, No Campylobacter jejuni isolated to date. 12/19/18 09:42 Blood Aerobic Blood Culture - Preliminary No growth in Aerobic bottle after 48 hours. 12/19/18 09:42 Blood Anaerobic Blood Culture - Preliminary No growth in Anaerobic bottle after 48 hours. 12/19/18 09:38 Blood Aerobic Blood Culture - Preliminary No growth in Aerobic bottle after 48 hours. 12/19/18 09:38 Blood Anaerobic Blood Culture - Preliminary No growth in Anaerobic bottle after 48 hours.
--- NOTE | 2018-12-21 14:27 | GI REPORT ---
Patient Name: Shahid Jorge Procedure Date: 12/21/2018 1:49 PM Date of : 1955 Admit Type: Inpatient Age: 63 Gender: Male Attending MD: Gaye Fields MD Procedure: Upper GI endoscopy Providers: Gaye Fields MD Referring MD: Krista Moon Indications: Epigastric abdominal pain Medicines: See the Anesthesia note for documentation of the administered medications Complications: No immediate complications. Estimated Blood Loss: Estimated blood loss: none. Procedure: Pre-Anesthesia Assessment: - ASA Grade Assessment: II - A patient with mild systemic disease. After obtaining informed consent, the endoscope was passed under direct vision. Throughout the procedure, the patient's blood pressure, pulse, and oxygen saturations were monitored continuously. The Endoscope was introduced through the mouth, and advanced to the fourth part of duodenum. The upper GI endoscopy was accomplished without difficulty. The patient tolerated the procedure well. Findings: The examined esophagus was normal. The stomach was normal. The examined duodenum was normal. There was bile in the small intestine. Impression: - Normal esophagus. - Normal stomach. - Normal examined duodenum. - No specimens collected. Recommendation: - Discharge patient to floor. See EGD notes for details. Gaye Fields M.D. Gaye Fields MD 12/21/2018 2:27:23 PM This report has been signed electronically. Note Initiated On: 12/21/2018 1:49 PM Number of Addenda: 0 I attest to the content of the Intraoperative Record and orders documented therein, exceptions below {[id number]}
--- NOTE | 2018-12-21 14:41 | Anesthesiology Progress Note ---
Date of Service December 21, 2018 Anesthesia Post Procedure Vital Signs Vital Signs: Temp Pulse Pulse Resp BP Pulse Ox 12/21/18 14:27 36.9 C 54 L 20 139/73 98 12/21/18 13:19 36.9 C 57 L 18 142/89 H 97 12/21/18 07:09 36.6 C 53 L 18 146/88 H 96 12/20/18 23:42 36.9 C 70 20 124/78 97 12/20/18 15:12 36.7 C 70 16 111/69 96 Transfer of Care Handoff Completed per policy Notes Mental Status: alert / awake / arousable Patient Amnestic to Procedure: Yes Nausea / Vomiting: adequately controlled Pain: adequately controlled Airway Patency, RR, SpO2: stable & adequate BP & HR: stable & adequate Hydration State: stable & adequate Anesthetic Complications: no major complications apparent and Pt Satisfied with anesthetic care
--- NOTE | 2018-12-21 17:41 | Ultrasound Report ---
US duplex portal hepatic veins HISTORY: 63 years-old Male r/o PVT acute right upper quadrant abdominal pain COMPARISON: CT abdomen and pelvis 12/18/2018 TECHNIQUE: Multiple real time sonographic images of the hepatic vasculature were obtained assessing g rayscale appearance, color and spectral flow FINDINGS: The portal splenic confluence is partially obscured by bowel gas. Normal hepatopedal flow noted withi n the portal veins. Hepatic arteries are patent, resistive indices measured at 0.7. Normal spectral w aveforms are seen within the hepatic veins. Patent hepatic artery with lowers is dense waveforms. IVC is unremarkable and patent. IMPRESSION: Normal exam. No evidence of portal venous thrombosis. The above report was generated using voice recognition software. It may contain grammatical, syntax o r spelling errors. Electronically signed by: Panchito Vogel M.D. 12/21/2018 5:40 PM
[2018-12-21] MEDS: ACETAMINOPHEN 325 MG TAB PO PRN (21:27)
[2018-12-22] MEDS: PIPERACILLIN/TAZOBACTAM 4.5 GM in DEXTROSE 5% 100 ML IV SCH ×2 (03:48→11:33)
[2018-12-22 06:15] LABS: Creatinine Clr Calc Pharmacy 88.9 ml/min; Est GFR (Non-African American) 90.6
[2018-12-22] MEDS: FLUOXETINE HCL 20 MG CAP PO SCH (07:54)
[2018-12-22] MEDS: THIAMINE HCL 100 MG TAB PO SCH (07:55)
[2018-12-22] MEDS: LISINOPRIL 20 MG TAB PO SCH (07:55)
[2018-12-22] MEDS: D5NSS + 20MEQ KCL 20 MEQ/1,000 ML BAG IV SCH (07:55)
[2018-12-22] MEDS: FOLIC ACID 1 MG TAB PO SCH (07:55)
[2018-12-22] MEDS: PANTOprazole 40 MG TAB PO SCH (07:56)
[2018-12-22] MEDS: ACETAMINOPHEN 325 MG TAB PO PRN (07:57)
[2018-12-22] MEDS: ACYCLOVIR 5% OINT 15 GM TUBE EXT SCH ×3 (07:58→11:34)
--- NOTE | 2018-12-22 08:48 | Gastroenterology Progress Note ---
Date of Service December 22, 2018 Assessment & Plan (1) Bacteremia due to Gram-negative bacteria: (2) Abdominal pain: Pt is a 63 y/o male w abd pain, n/v, diarrhea (improved), gram negative bacilli bacteremia, elevated LFTs. CT abd/pelvis and MRCP w/o obvious signs of colitis. He is s/p cholecystectomy w mild prominence of bile duct but no choledocholithiasis. Liver w signs of possible fibrosis vs steatosis. EGD/Colonoscopy done yesterday unremarkable HIDA normal U/S hepatic vein w/o signs of PVT His n/v, abd pain is resolved. LFTs normalizing. - F/U full liver serologies, stool studies results, alk phos fractionated. - No new GI plans today. No contraindication for DC from our standpoint with antibx coverage for bacteremia. Will help make f/u GI appt to trend LFTs and if remains elevated, will plan for EUS guided liver bx. Subjective Pt feels well, minimal abd pain. Had BM today. No n/v. Eating solid breakfast Review of Systems Review of Systems: All systems reviewed & are unremarkable except as noted in HPI & below Physical Exam Constitutional: WD/WN, vitals as above well groomed, cooperative and comfortable Eyes: PERRL, conjunctivae normal, anicteric sclerae ENMT: external ear and nose normal, oropharynx normal Respiratory: normal respiratory effort, lungs clear to auscultation Cardiovascular: RRR, no murmur, no edema Gastrointestinal (Abdomen): normal bowel sounds, soft, nontender, no hepatosplenomegaly Skin: no rashes, warm and dry no jaundice Neurologic: Motor/Sensory: no asterixis Psychiatric: A+Ox3, euthymic affect Lymphatic: no lymphedema Results & Data Vital Signs (Past 12 Hours) Vital Signs Temp Pulse Resp BP Pulse Ox 12/22/18 07:00 36.6 C 55 L 20 128/78 96 12/21/18 23:41 36.8 C 66 20 118/75 98 (1) Abdominal pain Abdominal location: generalized Qualified Code(s): R10.84 - Generalized abdominal pain
[2018-12-22 09:28] LABS: Hematocrit (blood only) 36.2 % (42-52); Hemoglobin 12.2 g/dL (14.0-18.0); Mean Corpuscular Hgb Conc 33.7 g/dL (32-36); Mean Corpuscular Volume 92.6 fL (80-100); Mean Platelet Volume 10.2 fL (7.4-10.4); Platelet Count 259 K/uL (130-400); RDW Coefficient of Variation 12.7 % (11.5-14.5); RDW Standard Deviation 42.9 fL (36.4-46.3); Red Blood Count 3.91 M/uL (4.7-6.1)
[2018-12-22 09:36] LABS: Albumin Level 2.5 gm/dl (3.4-5.0); BUN Creatinine Ratio 4.9 (10-20); Calcium 8.7 mg/dl (8.5-10.1); Creatinine Clr Calc Pharmacy 86.9 ml/min; Est GFR (Non-African American) 89.7; Potassium 4.2 mmol/L (3.5-5.1)
[2018-12-22 09:40] LABS: Albumin Globulin Ratio 0.7 (0.9-2); Bilirubin,Total 0.3 mg/dl (0.2-1); Globulin 3.5 gm/dl (2.5-4.0)
--- NOTE | 2018-12-22 10:35 | Anesthesiology Progress Note ---
Date of Service December 22, 2018 Anesthesia Post Procedure Vital Signs Vital Signs: Temp Pulse Resp BP BP Pulse Ox 12/22/18 07:00 36.6 C 55 L 20 128/78 96 12/21/18 23:41 36.8 C 66 20 118/75 98 12/21/18 15:42 36.3 C L 53 L 20 169/95 H 97 12/21/18 14:57 53 L 18 145/88 H 97 12/21/18 14:42 63 20 128/90 98 12/21/18 14:27 36.9 C 54 L 20 139/73 98 12/21/18 13:19 36.9 C 57 L 18 142/89 H 97 Notes Mental Status: alert / awake / arousable and participated in evaluation Nausea / Vomiting: adequately controlled Pain: adequately controlled Airway Patency, RR, SpO2: stable & adequate BP & HR: stable & adequate Hydration State: stable & adequate
--- NOTE | 2018-12-22 12:56 | Hospitalist Progress Note ---
Date of Service December 22, 2018 Assessment & Plan (1) Positive blood culture: Patient came in with complaint of abdominal pain, vomiting, fever for several days. Patient was in ED when he had CT abdomen done which showed no acute abdominal process, LFTsnormal except ALP 148, normal serum lipase, blood cultures were obtained chest x-ray showed left lung base density and was treated with levofloxacin for suspected pneumonia. Blood culture came back positive growing gram-negative bact. Patient was asked to come back from home. -Blood cultures 2/2 drawn on 12/18/2018 in ED growing E coli, eisenberg sensitive -No sepsis on admission. -Clinically improved and asymptomatic now, LFTs normalized except ALP 221 -Source of bacteremia uncertain. No intra abdominal or urinary or any other source identified -Patient had received levofloxacin 12/18 and received cefepime in the ED --> changed to piperacillin/tazobactam x Days 3 --> Change to ciprofloxacin 500 mg twice dailyday 07/29 post negative blood culture -Repeat Blood culture x 2 - No growth x 48 hours -Consulted ID, GI (2) Transaminitis: (3) Abdominal pain: RESOLVED, Unclear etiology Severe epigastric pain for several days. Extensive work up done - -EGD/Colonoscopy- 12/21/18- Neg except diverticulosis, polyp7 mm which was resected. CT of abdomen pelvis performed 12/18 did not show any apparent acute findings. -MRCP- Mild heterogeneity of liver parenchyma with posterior segments of right hepatic lobe. This is nonspecific. Possible underlying mild fibrosis or heterogenous steatosis or possibility- Mild. HIDA Scan- Negative. US portal vein - Negative. Hep A, B, C - Neg, -With elevated LFTs and gram-negative bacteremia, cholangitis was considered, but less likely. -Received IV antibiotics as above -Full liver serologies, alkaline phosphatase fractionated were sent by GI which is still pending and will be followed up outpatient. May consider EUS guided liver biopsy in the future if needed -General surgery, ID, GI consulted- cleared for discharge -Follow up ouptatient with GI (4) Abnormal chest x-ray: Abnormal CT scan CT of abdomen performed 12/18 demonstrated 3 cm density left lung base. -Patient was started on levofloxacin for suspected pneumonia. -No respiratory symptoms, non smoker -Received levofloxacin initially for suspected pneumonia, though seems less likely -Patient will need radiographic follow-up, probably by CT, to ensure resolution of the pulmonary density. (5) HTN (hypertension): Hemodynamically stable. -Continue lisinopril with hold parameters. (6) Alcohol use: Patient indicates that he drinks several beers a few times a week. -Last alcohol consumption was about 1 week ago. -No apparent alcohol withdrawal at this time. -Thiamine -Advised to stay away from alcohol completely (7) DVT (deep venous thrombosis): -No anticoagulants at this time- may need invasive diagnostic or therapeutic interventions. -SCD's. -Ambulate. (8) Discharge planning issues: Eager to be discharged home. Cleared by GI for discharge. Okay to discharge home today. -Family Medicine follow-up with Dr. Phillips. was updated yesterday about the plan. Subjective Patient has been multiple. Denies any complaints. Abdominal pain has resolved. No nausea, vomiting, fever, chills. No diarrhea. Tolerating p.o. diet very well. Eager to be discharged home Physical Exam Physical Exam: GENERAL- Sleepy today, No acute distress LUNGS- Air entry bilaterally equal. No rales, rhonchi, crackles, wheezes heard. HEART- Regular rate and rhythm. No murmurs ABDOMEN- Soft, non tender, non distended, Bowel sounds heard. EXTREMITIES- Good peripheral pulses, no edema NEUROMUSCULAR- AAOX3, Grossly no focal deficits Results & Data Vital Signs (Past 12 Hours) Vital Signs Temp Pulse Resp BP Pulse Ox 12/22/18 07:00 36.6 C 55 L 20 128/78 96 (1) Abdominal pain Abdominal location: generalized Qualified Code(s): R10.84 - Generalized abdominal pain (2) HTN (hypertension) Hypertension type: unspecified Qualified Code(s): I10 - Essential (primary) hypertension
--- NOTE | 2018-12-22 13:06 | Discharge Summary ---
Date of Service December 22, 2018 Admission HPI Per Admitting Provider 63-year-old male followed by Dr. Phillips for Family Medicine. History of hypertension and other problems noted below. Admitted to [facility] April 2014 with gangrenous cholecystitis complicated by E. coli bacteremia. No cholelithiasis or choledocholithiasis appreciated by CT, ultrasound, or MRCP at that time (although ultrasound suggested gallbladder sludge). Laparoscopic cholecystectomy was performed. Seen in ED yesterday complaining of several days of abdominal pain, vomiting, fever. CT of abdomen did not show any apparent acute intra-abdominal processes. White count was 10,840. LFTs were essentially normal except for alkaline phosphatase of 148. Serum lipase was normal. Blood cultures were obtained. However, density at the left lung base was noted and patient was treated with levofloxacin for suspected pneumonia. Microbiology laboratory reported today that blood cultures are growing gram- negative bacilli. Patient was notified and asked to return to the ED for further evaluation and management. He states that he feels slightly better than yesterday, but still has persistent severe abdominal pain. Abdominal pain is described as diffuse, but worse in the epigastrium. He took acetaminophen with minimal, if any, benefit. He vomited a few days ago without gross blood or coffee grounds. No melena or hematochezia. Intermittent fever as high as 103 at home associated with chills and sweats. Denies cough, chest pain, dyspnea. Patient states that he has several beers a few times a week, last alcohol consumption was about a week ago. No signs/symptoms of alcohol withdrawal. Principal Diagnosis 1. Bacteremia, E coli , unclear source 2. Transaminitis, unclear etiology 3. Abnormal CT scan - left lung base opacity Secondary diagnoses on discharge 1. Alcohol use 2. Marijuana abuse 3. Hypertension Discharge Exam GENERAL- Sleepy today, No acute distress LUNGS- Air entry bilaterally equal. No rales, rhonchi, crackles, wheezes heard. HEART- Regular rate and rhythm. No murmurs ABDOMEN- Soft, non tender, non distended, Bowel sounds heard. EXTREMITIES- Good peripheral pulses, no edema NEUROMUSCULAR- AAOX3, Grossly no focal deficits Discharge Data Allergies Allergy/AdvReac Type Severity Reaction Status Date / Time No Known Allergies Allergy Mild Verified 12/19/18 09:24 Consultations 12/19/18 10:44 ED Decision to Admit Stat 12/19/18 11:43 Consult General Surgery Stat 12/19/18 13:35 Consult Gastroenterology Stat Consult Infectious Diseases Routine Procedures Performed Operation Date: 12/21/18 08:30 Actual Procedures s Esophagogastroduodenoscopy - Irphan E Gaslightwala p Colonoscopy Polypectomy - Irphan E Gaslightwala s Injection Therapy / Sclerotherapy - Irphan E Gaslightwala Ordered Studies 12/19/18 19:07 MR MRCP Routine 12/21/18 15:05 US duplex portal hepatic veins Routine Hospital Course (1) Positive blood culture: Patient came in with complaint of abdominal pain, vomiting, fever for several days. Patient was in ED when he had CT abdomen done which showed no acute abdominal process, LFTsnormal except ALP 148, normal serum lipase, blood cultures were obtained chest x-ray showed left lung base density and was treated with levofloxacin for suspected pneumonia. Blood culture came back positive growing gram-negative bact. Patient was asked to come back from home. -Blood cultures 2/2 drawn on 12/18/2018 in ED growing E coli, eisenberg sensitive -No sepsis on admission. -Clinically improved and asymptomatic now, LFTs normalized except ALP 221 -Source of bacteremia uncertain. No intra abdominal or urinary or any other source identified -Patient had received levofloxacin 12/18 and received cefepime in the ED --> changed to piperacillin/tazobactam x Days 3 --> Change to ciprofloxacin 500 mg twice dailyday 07/29 post negative blood culture -Repeat Blood culture x 2 - No growth x 48 hours -Consulted ID, GI (2) Transaminitis: (3) Abdominal pain: RESOLVED, Unclear etiology Severe epigastric pain for several days. Extensive work up done - -EGD/Colonoscopy- 12/21/18- Neg except diverticulosis, polyp7 mm which was resected. CT of abdomen pelvis performed 12/18 did not show any apparent acute findings. -MRCP- Mild heterogeneity of liver parenchyma with posterior segments of right hepatic lobe. This is nonspecific. Possible underlying mild fibrosis or heterogenous steatosis or possibility- Mild. HIDA Scan- Negative. US portal vein - Negative. Hep A, B, C - Neg, -With elevated LFTs and gram-negative bacteremia, cholangitis was considered, but less likely. -Received IV antibiotics as above -Full liver serologies, alkaline phosphatase fractionated were sent by GI which is still pending and will be followed up outpatient. May consider EUS guided liver biopsy in the future if needed -General surgery, ID, GI consulted- cleared for discharge -Follow up ouptatient with GI (4) Abnormal chest x-ray: Abnormal CT scan CT of abdomen performed 12/18 demonstrated 3 cm density left lung base. -Patient was started on levofloxacin for suspected pneumonia. -No respiratory symptoms, non smoker -Received levofloxacin initially for suspected pneumonia, though seems less likely -Patient will need radiographic follow-up, probably by CT, to ensure resolution of the pulmonary density. (5) HTN (hypertension): Hemodynamically stable. -Continue lisinopril with hold parameters. (6) Alcohol use: Patient indicates that he drinks several beers a few times a week. -Last alcohol consumption was about 1 week ago. -No apparent alcohol withdrawal at this time. -Thiamine -Advised to stay away from alcohol completely (7) DVT (deep venous thrombosis): -No anticoagulants at this time- may need invasive diagnostic or therapeutic interventions. -SCD's. -Ambulate. (8) Discharge planning issues: Eager to be discharged home. Cleared by GI for discharge. Okay to discharge home today. -Family Medicine follow-up with Dr. Phillips. was updated yesterday about the plan. Total Time Total Time Spent Total Time Spent (In Minutes): 40 minutes Discharge Plan Discharge Items Patient Disposition: Home - Self-Care Reason For Visit: BACTEREMIA Discharge Diagnosis: 1. Bacteremia, E. coli, unclear source 2. Transaminitiselevated liver function tests Discharge Goals: Decrease discomfort Activity: Resume your previous activity Non-emergency contact: Primary Care Provider Call non-emergency contact if: you have any medication questions Follow-up/Referrals: Ifeoma Menard [Physician] - (GI will call you for follow-up appointment and time) Magalys Burns [Other] - 12/28/18 11:00 am Diet: Low Sodium (2gm) Addtl Provider Instructions: You were admitted to the hospital for gram-negative E. coli bacteremia. You were treated with IV antibiotics. He had number of imaging tests done during this admission. You had procedures doneEGD, colonoscopy during this admission which revealed diverticulosis, a 7 mm polyp which was removed from colon. MEDICATION CHANGES New medication -ciprofloxacin 500 mg p.o. twice a day for 11 more days to complete course of 14 days of antibiotics for E. coli bacteremia Avoid alcohol and marijuana Prescriptions: New ciprofloxacin HCl 500 mg tablet 500 mg PO BID 11 Days Qty: 22 RF: 0 Continued thiamine HCl (vitamin B1) [Vitamin B-1] 100 mg tablet 100 mg PO QAM RF: 0 folic acid 1 mg tablet 1 mg PO QAM RF: 0 fluoxetine [Prozac] 40 mg capsule 40 mg PO QAM RF: 0 lisinopril [Zestril] 20 mg tablet 20 mg PO QAM RF: 0 pantoprazole 40 mg tablet,delayed release (DR/EC) 40 mg PO QAM RF: 0 ranitidine HCl 150 mg tablet 150 mg PO QAM RF: 0 Discontinued levofloxacin [Levaquin] 750 mg tablet 750 mg PO QAM RF: 0 Stand-Alone Forms: [facility] Discharge Orders: Discharge Order (Routine); Ordered 12/22/18 Ordered By: Krista Moon Admission Data Admit Date/Time: 12/19/18 11:27 Attending Provider: Krista Moon Admit Provider: Cam Hanna Primary Care Provider: Moris Phillips Other Providers: Cam Hanna ; Oliver Graves ; Ifeoma Menard ; Dakota Altamirano Service: Medical
--- NOTE | 2018-12-24 08:44 | Coding Query ---
To promote full compliance with coding requirements relating to patient care, provider participation is requested in all cases of remote medical coder uncertainty. Please assist us with the question(s) below: Coding Question(s): The diagnoses below were documented in the chart, then subsequently, on 12/22/18 Progress Note and on the Discharge Summary, were documented as less likely. Please indicate if it is still a possible diagnosis or ruled out. Physician's Response(s): POSSIBLE CHOLANGITIS Possible Cholangitis, unable to confirm or rule out ( ) Diagnosed and POA ( ) Diagnosed and not POA ( ) Ruled out ( ) Other (please specify) POSSIBLE PNEUMONIA ( ) Diagnosed and POA ( ) Diagnosed and not POA ( + ) Ruled out ( ) Other (please specify) MTDD
[2018-12-24 12:29] LABS: CMV IgG Antibody <0.60 U/ML; CMV IgM Antibody <30.00 Au/mL; EBV Nuclear Ag Antibody >600.00 U/ML; EBV Virus Capsid Ag IgG Ab >750.00 U/ML; Epstein Barr Virus Early Ag Ab < 9.00 U/ML; Herpes Simplex Ab IgG-2 < 0.90 INDEX (< 0.90); Parvovirus IgG 5.1 (<0.9); Parvovirus IgM 0.1 (<0.9)
[2018-12-26 06:11] LABS: Alpha 1 Antitrypsin 282 MG/DL (83-199); Anti Nuclear Antibody Screen NEGATIVE (NEGATIVE); Ceruloplasmin 42 MG/DL (18-36); IgA Serum 202 mg/dL (20-320); Tis Trans IgA 1 U/mL (<4)
== END 2018-12-22 14:34 | disposition home or self-care (01) | DRG 872 ==
LOC: ED 09:10 → SUATTDRO 11:27 → 4W 11:27

== ENCOUNTER 2024-12-08 08:44 | Observation (INO) ==
--- NOTE | 2024-11-15 09:27 | PAT Medication Instructions ---
Medication Instructions Date of Service November 15, 2024 Home Medications lisinopril 30 mg tablet 30 mg PO DAILY rosuvastatin 5 mg tablet 5 mg PO DAILY vitamin B complex 1 cap PO DAILY Continue as directed rosuvastatin 5 mg tablet 5 mg PO DAILY DO NOT take the morning of surgery lisinopril 30 mg tablet 30 mg PO DAILY vitamin B complex 1 cap PO DAILY Other Notes OTHERWISE NOTHING TO EAT OR DRINK AFTER MIDNIGHT. If you have any questions please call us at [phone] or [phone] or [phone] or [phone]
--- NOTE | 2024-11-22 10:33 | Anesthesiology Consultation ---
Date of Service November 22, 2024 Assessment & Plan (1) Encounter for pre-operative examination: - Infectious disease screening: Per assessment on 11/22/24- No known recent infectious disease contacts or current infectious disease symptoms. - Outpatient joint assessment: Pt currently scheduled for inpatient pathway. If surgeon requests review for outpatient joint pathway, patient is an acceptable candidate for outpatient joint program from anesthesia standpoint pending surgeon's office assessment that patient is motivated, has good support and completes Same Day Joint Program preop requirements. Chart Review Chart Review: Acceptable Risk for Surgery and Patient seen in Pre Admission Testing Teaching & Discussion Pre-Anesthesia Teaching/Discussion Notes: Instructed NPO after midnight before surgery,except medications with 15 cc of water. Medication instructions provided according to the PAT guidelines. History Surgery Operation Date: 12/08/24 07:00 Proposed Procedures p Right Total Knee Arthroplasty - Karl Green MD Height/Weight Height: 5 ft 7 in Weight: 84.5 kg Allergies Allergy/AdvReac Type Severity Reaction Status Date / Time No Known Allergies Allergy Mild Verified 11/14/24 12:22 Medications Home Medications Medication Instructions Recorded Confirmed Last Taken lisinopril 30 mg tablet 30 mg PO DAILY 11/14/24 11/14/24 Unknown rosuvastatin 5 mg tablet 5 mg PO DAILY 11/14/24 11/14/24 Unknown vitamin B complex 1 cap PO DAILY 11/14/24 11/14/24 Unknown Past Medical History Medical History DVT (deep venous thrombosis) Patient denies, "never told he ever had blood clots" Questionable DVT notation during 12/2018 [facility] admission. Portal vein US duplex 12/19/18 done (indication r/o PVT acute RUQ abdominal pain) with "Normal exam. No evidence of portal vein thrombosis" Dyslipidemia History of depression History of hypertension Hx of gastroesophageal reflux (GERD) Exercise / Class Metabolic Activity II 4-5 Yardwork/Stairs/Walk up hill (one FS: No CP, no SOB) Past Family History Family History Uncle Coronary heart disease Father Stroke Past Surgical History Surgical History History of back surgery 1972, 2005, 2014 History of total left knee replacement Hx laparoscopic cholecystectomy Hx of arthroscopy of knee Hx of cataract extraction R/L Hx of colonoscopy Hx of tonsillectomy Hx of vasectomy Past Anesthesia History No Hx of Anesthesia Complications and No Family Hx of Anesthesia Complications History of PONV No Hx of PONV and No Hx of Motion Sickness Social History Smoking Status: Never smoker tobacco type: smokeless tobacco Do You Dip or Chew Tobacco: Yes (Daily- Advised none DOS) Hx Alcohol Use: Yes (Hx Alcohol abuse per records, patient indicates no ETOH use during summer) Hx Substance Use: Yes substance use type: marijuana (Remote hx, none x years) Review of Systems Patient denies chest pain, shortness of breath, dyspnea on exertion, reflux, cough, wheezing, palpitations. Physical Exam Vital Signs Vitals BP 113/71 P 81 TEMP 99.1 SP02 97%RA RESP 18 Physical Full cervical extension range of motion. Full TMJ range of motion. TMD > 3.5 finger breaths Mallampati Score III Dentition: upper full dentures Lungs: clear throughout to auscultation Cardiac: regular rate and rhythm, no murmurs noted Spine: normal Extremities: no LE edema Lab Results Anesthesia Preop Results Results Anesthesia Widget: WBC 7.16 K/ul (4.8-10.8) 11/22/24 Hgb 15.2 g/dl (14.0-18.0) 11/22/24 Hct 43.2 % (42.0-52.0) 11/22/24 Plt 261 K/uL (130-400) 11/22/24 Na 138 mmol/L (136-145) 11/22/24 K 3.9 mmol/L (3.5-5.1) 11/22/24 Cl 104 mmol/L (98-107) 11/22/24 CO2 28 mmol/L (21-32) 11/22/24 BUN 10 mg/dl (6-23) 11/22/24 Creat 0.92 mg/dl (0.6-1.4) 11/22/24 Glucose Level 135 mg/dl (70-99(Fasting)) H 11/22/24 PT 10.7 Seconds (9.0-12.0) 11/22/24 PTT 25 Seconds (21-31) 11/22/24 INR 1.0 (0.9-1.1) 11/22/24 Blood Type A Positive 11/22/24 Antibody Screen NEGATIVE 11/22/24 Testing Electrocardiogram Date: 11/22/24 NSR at 72bpm. "Normal ECG" Chest X-Ray Date: 11/22/24 FINDINGS: PA and lateral chest radiographs are compared to study dated 12/19/2018 and correlated with chest CT dated 01/31/2019. The cardiomediastinal silhouette is unremarkable noting atherosclerotic calcification of the thoracic aorta. Calcified left hilar nodes and calcified granulomas are similar to previous. The lungs and pleural spaces are otherwise clear. There is no pneumothorax. The skeletal structures are osteopenic. The bony thorax appears intact. Postsurgical change is noted in the lumbar spine. Cholecystectomy clips are seen in the right upper quadrant. IMPRESSION: No active disease in the chest.
[~2024-12-08 08:44] MED LIST: BUPIVACAINE 0.25% PF 30 ML VIAL ONE; BUPIVACAINE 0.5 % 5 MG/1 ML PF 10ML VIAL ONE
--- NOTE | 2024-12-08 09:12 | History & Physical Bridge Note ---
Date of Service December 08, 2024 History & Physical Bridge Note I have examined the patient, reviewed the History & Physical and in the interval since the performance of the History & Physical I have noted the following changes of clinical significance: no changes noted
[2024-12-08] MEDS: CeleBREX 200 MG CAP PO SCH (09:16)
[2024-12-08] MEDS: LR 60ML/HR IV SCH (09:16)
[2024-12-08] MEDS: METOCLOPRAMIDE HCL 10 MG TABLET PO SCH (09:16)
[2024-12-08] MEDS: ACETAMINOPHEN 500 MG TAB PO SCH ×2 (09:16→20:48)
[2024-12-08] MEDS: dexAMETHasone**PF** 10 MG/ML VIAL IV SCH (09:16)
[2024-12-08] MEDS: FAMOTIDINE 20 MG TAB PO SCH (09:16)
[2024-12-08] MEDS: LR 15ML/HR IV SCH (09:45)
[2024-12-08] MEDS ORDERED: LIDOCAINE 2% 2 ML VIAL/AMP(20MG/ML) INFIL ONE (11:11)
[2024-12-08] MEDS ORDERED: PROPOFOL IV EMULSION 10 MG/ML 20 ML VIAL IV ONE (11:11)
[2024-12-08] MEDS ORDERED: MIDAZOLAM HCL 1 MG/ML 2ML VIAL ONE (11:11)
[2024-12-08] MEDS ORDERED: ONDANSETRON INJ 2 MG/ML 2 ML VIAL IV PRN ×2 (11:14→15:25)
[2024-12-08] MEDS ORDERED: ATROPINE SULFATE 0.1 MG/ML 10ML SYR IV PRN (11:14)
--- NOTE | 2024-12-08 12:05 | History & Physical Report ---
Date of Service December 08, 2024 Assessment & Plan (1) Right knee DJD: 69-year-old gentleman with a history of a left knee replacement done by Dr. Jimenez about 7 years ago with advanced right knee DJD. Has failed conservative measures. He is ready have his right knee fixed. Plan: Take him to the operating room do a right knee replacement. The risks met this procedure were explained. Informed consent was obtained. Will plan on aspirin for DVT prophylaxis. He is going to be discharged to home with some home health postoperatively. (2) Depression: (3) Dyslipidemia: (4) HTN (hypertension): (5) History of total left knee replacement: History of Present Illness Chief Complaint: . Right knee pain. Primary Care Provider: Moris Phillips MD . Patient is a 69-year-old gentleman who presents for surgical treatment of his right knee. Has had a several year history of increasing right knee pain discomfort. He has been through extensive conservative treatment which has become less successful over time. He has resorted to using a cane to get around. Pain is mostly medial but there is some global pain. Injection treatment helped some for about a week and asked about it. He is ready to have his right knee fixed. Allergies Allergy/AdvReac Type Severity Reaction Status Date / Time No Known Allergies Allergy Mild Verified 12/08/24 09:13 Home Medications Medication Instructions Recorded Confirmed Type lisinopril 30 mg tablet 30 mg PO DAILY 11/14/24 12/08/24 History rosuvastatin 5 mg tablet 5 mg PO DAILY 11/14/24 12/08/24 History vitamin B complex 1 cap PO DAILY 11/14/24 12/08/24 History acetaminophen 500 mg tablet 1,000 mg (2 x 500 mg) PO TID pain 12/06/24 12/08/24 Rx (Tylenol Extra Strength) 30 days #180 tabs aspirin 81 mg tablet,delayed 81 mg PO BID 45 days #90 tabs 12/06/24 12/08/24 Rx release (Karolina Low Dose Aspirin) cefadroxil 500 mg capsule 500 mg PO BID 7 days #14 caps 12/06/24 12/08/24 Rx ketorolac 10 mg tablet 10 mg PO Q6 pain 5 days #20 tabs 12/06/24 12/08/24 Rx ondansetron 4 mg disintegrating 4 mg PO Q8 PRN nausea #20 tabs 12/06/24 12/08/24 Rx tablet oxycodone 5 mg tablet 5 - 10 mg (1 - 2 x 5 mg) PO Q6 PRN 12/06/24 12/08/24 Rx pain #40 tabs sennosides 8.6 mg tablet (Senokot) 8.6 mg PO BID prevent constipation 12/06/24 12/08/24 Rx 14 days #28 tabs tamsulosin 0.4 mg capsule (Flomax) 0.4 mg PO DAILY #7 caps 12/06/24 12/08/24 Rx Past Med/Surg History Problem List Disorder of left rotator cuff Right knee DJD Abnormal chest x-ray Encounter for pre-operative examination Elevated LFTs Alcohol use (Chronic) Depression (Chronic) Alcoholic ketoacidosis (Acute) Dyslipidemia (Chronic) HTN (hypertension) (Chronic) Medical History History of depression DVT (deep venous thrombosis) Patient denies, "never told he ever had blood clots" Questionable DVT notation during 12/2018 [facility] admission. Portal vein US duplex 12/19/18 done (indication r/o PVT acute RUQ abdominal pain) with "Normal exam. No evidence of portal vein thrombosis" Hx of gastroesophageal reflux (GERD) History of hypertension Dyslipidemia Surgical History Hx of colonoscopy Hx of tonsillectomy Hx laparoscopic cholecystectomy History of total left knee replacement History of back surgery 1971, 2004, 2013 Hx of vasectomy Hx of arthroscopy of knee Hx of cataract extraction R/L Family History Uncle Coronary heart disease Father Stroke Social History Smoking Status: Never smoker Second Hand Exposure: No; Do You Dip or Chew Tobacco: Yes (Daily- Advised none DOS); Tobacco Cessation Education Requested by Patient: No Hx Alcohol Use: Yes (Hx Alcohol abuse per records, patient indicates no ETOH use during summer) Alcohol type: beer Hx Substance Use: Yes Substance Use Type Other:: OCCASIONALLY Preferred Language: [place] Communication Ability: Effective Wire Drawing Die Maker Required: No Beliefs That Will Affect Care: None Current Living Situation: Spouse Other Information That Helps Us Care for You: No Feels Safe at Home: Yes Safety Concerns: Feels Safe At This Time Assistive Devices: Denture - Upper and Hearing Aid - Bilateral Review of Systems All systems reviewed & are unremarkable except as noted in HPI & below. Physical Exam . Physical exam shows a pleasant middle-age male. Looks to be in pretty good health. Examination of the right knee reveals the use of a cane. Range of motion is 5-1 25. Varus alignment to his knee Examination left knee reveals well-healed incision. No swelling. Range of motion 0-1 20 Constitutional WD/WN, vitals as above Respiratory normal respiratory effort, lungs clear to auscultation Cardiovascular RRR, no murmur, no edema Gastrointestinal (Abdomen) normal bowel sounds, soft, nontender, no hepatosplenomegaly Results & Data Results & Data Laboratory Results . Diagnostic Findings . X-rays of the knees were reviewed. Shows advanced right knee arthritis. Complete loss of medial joint space. Left knee replacement looks in a good position without problems. PG Care Time/CCT Total # of Minutes Spent Total Time Spent with Patient: Total time spent is greater than 50% in coordination of care (as documented) at patient's floor/unit and/or counseling patient: Coding Level of Care Code None Diagnoses Right knee DJD M17.11 Depression F32.9 Dyslipidemia E78.5 HTN (hypertension) I10 Hypertension type: unspecified History of total left knee replacement Z96.652 (4) HTN (hypertension) Hypertension type: unspecified Qualified Code(s): I10 - Essential (primary) hypertension
[2024-12-08] MEDS ORDERED: KETAMINE HCL 10MG/ML SYR ONE (12:30)
[2024-12-08] MEDS: ORTHO JOINT ANESTHETIC ONE (13:14)
[2024-12-08] MEDS: ROPIV 0.5% 246mg, Ketorolac 30mg, EPINEPHrine 0.5mg in NSS INFIL SCH (13:14)
[2024-12-08] MEDS ORDERED: PHENYLEPHRINE 100MCG/ML 5ML SYR ONE (13:43)
--- NOTE | 2024-12-08 14:37 | Operative Report ---
PG Post Operative Report Pre & Post Diagnosis Operation Date: 12/08/24 10:40 Pre-Op Diagnosis: Right Knee Osteoarthritis Post-Op Diagnosis: Right Knee Osteoarthritis I identified the patient and participated in the time-out.: Yes Procedure Operation Date: 12/08/24 10:40 Actual Procedures p Right Total Knee Arthroplasty(Right) - Karl Green MD Surgeon Karl Green MD Compressor Assembler Abram Dhillon PA-C: Panchito Biswas PA-C Estimated Blood Loss 50 Findings Consistent with Post-Op Diagnosis Operative findings were advanced right knee medial compartment DJD. He had grade 4 [id number] disease of the medial femoral condyle medial tibial plateau. Slight varus deformity to his knee. Moderate-sized joint effusion. Specimens Right knee sent for pathology. Anesthesia Type General Complications none Disposition Accompanied Patient To Recovery: No Indications Patient is 69-year-old gentleman whose had several year history of memory problems. He had a left knee replacement done elsewhere about 7 years ago. Took him a long time recover from that. Still not doing great. Over the years he developed increased right knee pain discomfort. Has been putting off surgery but does not feel he can do that any longer. The shots only helped him temporarily. It is limiting his activities. He like to have his right knee fixed. Description of Procedure Operative implants consists of: 1 Biomet Vanguard size 70 right posterior by femoral component. 2. Biomet size 75 tibial tray. 3. 10 mm posterior stabilized polyethylene insert. 4. 34 x 8 and half all poly patella. The patient was taken to the op room, identified, placed on the operating table in the supine position. All conductors were appropriately padded. IV antibiotics fibra anesthesia team. A spinal anesthetic and adductor canal block had been provided in the holding area. Right side turn was then placed. The right lower extremity was then prepped and draped in usual sterile fashion. The right leg was elevated and exsanguinated with use of an Esmarch and tourniquet placed at 300 mmHg. An anterior approach of the right knee was then performed to longitudinal incision centered over the patella. Sharp dissection carried through subcutaneous tissue down the extensor mechanism. A medial parapatellar arthrotomy incision was made. Some subperiosteal dissection was carried out medially. The fat pad was dissected from the patella tendon. The lateral patellofemoral ligament was released. Patella subluxated laterally knee was flexed. The osteophytes taken off distal femur. The ACL PCL then released from the distal femur. The tibia subluxated anteriorly. The external femoral alignment jig was then placed on the anterior face of the tibia and adjusted 14 mm medially. The proximal tibial cut was made essentially flush with the most deficient aspect of the posterior medial tibial plateau. Some osteophytes taken off medially. The tibia was sized to a size 75. Attention drawn the femur. The distal femur was entered with a sharp drill. Intramedullary canal was suction. Right 6 degree valgus cutting guide was placed. The distal femoral cutting block was pinned in place. Distal femoral cut was made taking additional 3 mm of bone off distal femur. The femur was then sized to a size 70. The AP cutting block was pinned parallel to the epicondylar axis which was 3 degrees of external rotation. The anterior cut, anterior chamfer, posterior cut, posterior chamfer cuts were made. The box cutting guide was placed and just slight lateral and the box cut was made. The knee was flexed. The remnants of the medial lateral menisci were excised. The osteophytes taken off the posterior aspect of femur. Trial femoral component was placed. The tibial tray was pinned in Natasha external rotation and the drill and stem points were used to create defect in the proximal tibia for the tibial tray. The knee was then trialed and the 10 mm insert fit most appropriately. Attention then drawn the patella. The patella was cleaned of all soft tissue. Patella thickness measured 23 mm in thickness was cut down to 14. Was sized to a size 34 patella. The lug holes were drilled for 34 patella. The lateral osteophytes removed. Patella button was placed. Knee was taken through range of motion patella tracked nicely with no thumbs test. Attention jointer placed in permanent components. All trial components were removed. Bone plug was placed into the distal femur limb of blood loss. A double batch [place] G cement was mixed. Biomet Zeis Excelsaguard size 70 right Po stabilized femoral component, size 75 tibial tray, a 10 mm posterior box polyethylene insert, 34 x 8-1/2 all poly patella then cemented in place. The knee was brought out into full extension till cement hardened. Final cement check was then performed. Pericapsular tissues were injected with total 100 cc of Ortho mix. Patient did receive 1 g tranexamic acid. The tourniquet was then let down for final tourniquet time 60 minutes. Hemostasis assured with electrocautery. Wounds once again irrigated. The extensor Metros then closed with combination 1 PDS suture #1 Vicryl suture in a [id number] fashion. Extensor Meclomen checked found to be intact through subcutaneous tissues then closed with 2 Dexon suture in a buried interrupted fashion skin was closed skin antonio. Leg was then cleaned and dried and a sterile dressing with Xeroform, four-port, sterile cast padding, Anthony bandage were applied. Patient then transferred to the recovery in stable condition. Patient tolerated the procedure well and there were no complications. Abram Dhillon and Panchito Biswas, my physician assistants, were present for the entire procedure. The there were presence was needed for proper patient positioning, prepping draping, surgical exposure, retraction, form the technical details of the operation, placement implants, closure of the incision site, and placement of postoperative sterile bandage. I attest to the content of the Intraoperative Record and any orders documented therein. Any exceptions are noted below.
--- NOTE | 2024-12-08 14:43 | Anesthesiology Progress Note ---
Date of Service December 08, 2024 Anesthesia Post Procedure Vital Signs Vital Signs: Temp Pulse Resp BP Pulse Ox O2 Del Method 12/08/24 09:07 37 C 62 20 115/71 97 Room Air Pain Intensity Right Knee: Pain Intensity: 3 Transfer of Care Handoff Completed per policy Notes Mental Status: alert / awake / arousable and participated in evaluation Patient Amnestic to Procedure: Yes Nausea / Vomiting: adequately controlled Pain: adequately controlled Airway Patency, RR, SpO2: stable & adequate BP & HR: stable & adequate Hydration State: stable & adequate Neuraxial Anesthesia: was administered and sensory block is resolving Anesthetic Complications: no major complications apparent and Pt Satisfied with anesthetic care
--- NOTE | 2024-12-08 15:01 | XRay Report ---
XR knee RT 1 or 2V routine CLINICAL HISTORY: Surgical Post Op COMPARISON: 02/16/2023 FINDINGS: Right knee prosthesis shows no hardware complication. There is expected soft tissue gas. S kin antonio are present. IMPRESSION: Unremarkable postoperative exam. ACT 112: Negative or not required by law. Electronically signed by: Oliver Dexter M.D. 12/08/2024 2:59 PM
[2024-12-08] MEDS ORDERED: MAGNESIUM HYDROXIDE SUSP 30 ML UDC PO PRN (15:25)
[2024-12-08] MEDS ORDERED: ALUMINUM/MAGNESIUM SUSP 30 ML UDC PO PRN (15:25)
[2024-12-08] MEDS ORDERED: NALOXONE HCL 0.4 MG/1 ML VIAL/CARP IV PRN (15:25)
[2024-12-08] MEDS ORDERED: HYDROmorphone INJ 0.5 MG/0.5 ML SYR IV PRN (15:25)
[2024-12-08] MEDS ORDERED: METOCLOPRAMIDE HCL INJ 5 MG/ML 2 ML VIAL IV PRN (15:25)
[2024-12-08] MEDS: SODIUM CHLORIDE 0.9% 1,000 ML IV SCH (15:30)
[2024-12-08] MEDS: KETOROLAC TROMETHAMINE 15 MG/ML VIAL IV SCH (15:50)
[2024-12-08] MEDS: ASCORBIC ACID 500 MG TAB PO SCH (16:47)
[2024-12-08] MEDS: SENNA 8.6 MG TAB PO SCH (20:48)
[2024-12-08] MEDS: DOCUSATE SODIUM 100 MG CAP PO SCH (20:48)
[2024-12-08] MEDS: ASPIRIN 81 MG ECTAB PO SCH (20:49)
[2024-12-08] MEDS: TRANEXAMIC ACID / 0.7% NACL 1,000 MG/100 ML BAG IV SCH (20:49)
[2024-12-08] MEDS ORDERED: SENNA 8.6 MG TAB PO SCH (21:00)
[2024-12-09 07:21] LABS: Hematocrit (blood only) 37.5 % (42.0-52.0); Hemoglobin 12.9 g/dl (14.0-18.0); Mean Corpuscular Hemoglobin 30.1 pg (25.0-34.0); Mean Corpuscular Volume 87.6 fL (80.0-100.0); Platelet Count 237 K/uL (130-400); RDW Standard Deviation 41.3 fL (36.4-46.3); Red Blood Count 4.28 M/uL (4.70-6.10); White Blood Count 14.62 K/ul (4.8-10.8)
[2024-12-09 07:34] VITALS: PULSE 74; RESP 14; TEMP 97.7; O2SAT 99
[2024-12-09] MEDS: dexAMETHasone 10 MG in SYRINGE 0 ML IV SCH (07:35)
[2024-12-09] MEDS: ROSUVASTATIN CALCIUM 5 MG TAB PO SCH (07:36)
[2024-12-09] MEDS: MULTIVITAMIN TAB PO SCH (07:36)
[2024-12-09] MEDS: TAMSULOSIN HCL 0.4 MG CAP PO SCH (07:37)
[2024-12-09] MEDS: VITAMIN B COMPLEX TAB PO SCH (07:37)
--- NOTE | 2024-12-09 07:38 | Orthopedic Progress Note ---
Date of Service December 09, 2024 Assessment & Plan (1) Status post right knee replacement: Plan: 69-year-old gentleman postop day 1 from right knee replacement doing pretty well. Pain is controlled. He is neurologically intact. Plan: 1. DVT prophylaxis including thigh-high teds, SCDs, aspirin twice a day. 2. PT/OT. Weight-bear as tolerated. Right total knee protocol. 3. Pain control. Doing okay with current pain regimen. 4. Disposition. Plan is to discharge to home with some home health if therapy goes okay today. (2) Dyslipidemia: (3) HTN (hypertension): Admission and Anticipated Discharge Date Admission Date: December 08, 2024 Subjective 69-year-old gentleman postop day 1 from a right knee replacement. He is doing well. Had a good night. Pains been controlled. No chest pain or shortness of breath. He is hoping to go home today. Physical Exam Physical Exam: Physical examination was a pleasant middle-age male. Sitting up in bed looks comfortable. Examination of the right leg reveals the dressing to be clean dry and intact. Do believe it has been reinforced. He can dorsiflex and plantarflex his foot appropriately. He can do a good straight leg raise. Respiratory: normal respiratory effort, lungs clear to auscultation Cardiovascular: RRR, no murmur, no edema Gastrointestinal (Abdomen): normal bowel sounds, soft, nontender, no hepatosplenomegaly Results & Data Vital Signs (Past 12 Hours) Vital Signs Temp Pulse Resp BP Pulse Ox O2 Del Method 12/09/24 07:30 36.5 C 74 14 148/79 H 99 Room Air 12/09/24 02:00 36.8 C 80 16 128/78 94 Room Air 12/08/24 22:00 37.2 C 80 18 131/75 97 Room Air Laboratory Results Hemoglobin is 12.9. Hematocrit is 37.5. Electrolytes are pending. (3) HTN (hypertension) Hypertension type: unspecified Qualified Code(s): I10 - Essential (primary) hypertension
[2024-12-09 07:45] LABS: Anion Gap 7.0 (3-11); Blood Urea Nitrogen 19.0 mg/dl (6-23); Calcium 9.1 mg/dl (8.6-10.3); Carbon Dioxide 23.0 mmol/L (21-32); Chloride 108.0 mmol/L (98-107); Creatinine Clr Calc Pharmacy 75.7 ml/min; Glucose 117.0 mg/dl (70-99(Fasting)); Potassium 4.2 mmol/L (3.5-5.1); Sodium 138.0 mmol/L (136-145)
[2024-12-09 11:08] VITALS: BP 105/62
== END 2024-12-09 12:00 | disposition home health service (06) ==
LOC: 3E 08:44 → ASU 08:44

== ENCOUNTER 2025-05-13 21:19 | Inpatient (IN) ==
[2025-05-13] MEDS: ACETAMINOPHEN 500 MG TAB PO STA (21:47)
[2025-05-13] MEDS: SODIUM CHLORIDE 0.9% 1,000 ML IV ONE (21:47)
[2025-05-13 22:02] LABS: Hematocrit (blood only) 41.6 % (42.0-52.0); Hemoglobin 14.5 g/dL (14.0-18.0); Immature Granulocytes # (auto) 0.02 K/uL (0.01-0.20); Immature Granulocytes % (auto) 0.3 %; Mean Corpuscular Hemoglobin 29.6 pg (25.0-34.0); Mean Corpuscular Volume 84.9 fL (80.0-100.0); Platelet Count 166 K/uL (130-400); RDW Standard Deviation 37.3 fL (36.4-46.3); Red Blood Count 4.90 M/uL (4.70-6.10); White Blood Count 7.04 K/ul (4.8-10.8)
[2025-05-13 22:27] LABS: Alanine Aminotransferase 157.0 U/L (7-52); Albumin Level 4.1 gm/dl (3.4-5.0); Alkaline Phosphatase 115.0 U/L (34-104); Anion Gap 9.0 (3-11); Bilirubin,Total 1.7 mg/dl (0.2-1.0); Blood Urea Nitrogen 20.0 mg/dl (6-23); Calcium 9.3 mg/dl (8.6-10.3); Carbon Dioxide 26.0 mmol/L (21-32); Chloride 99.0 mmol/L (98-107); Creatinine Clr Calc Pharmacy 84.0 ml/min; Glucose 177.0 mg/dl (70-99(Fasting)); Magnesium 1.8 mg/dl (1.7-2.4); Potassium 3.7 mmol/L (3.5-5.1); Sodium 134.0 mmol/L (136-145); Total Protein 6.5 gm/dl (6.0-8.3)
[2025-05-13 22:31] LABS: Influenza A virus by PCR Negative (Neg); Influenza B virus by PCR Negative (Neg); SARS CoV2 RNA(COVID-19) Ceph NEGATIVE (Negative)
[2025-05-13] MEDS: OPTIRAY 320 100ml IV ONE (23:25)
--- NOTE | 2025-05-13 23:35 | Emergency Department Note ---
ED Visit Note I was consulted by the Advanced Practice Provider, Lisa Dominguez PA-C. I performed a substantive portion of the visit. This includes aspects of: History: Patient is a 69-year-old male presenting with generalized weakness and decreased oral intake. He reports he has not felt well since yesterday. He reports he has been having episodes of shaking. Fever noted by EMS. Denies any abdominal pain, nausea or vomiting. MDM: Laboratory workup in the emergency department showed an elevated lactic acid level as well as hyperbilirubinemia and an elevated his AST/ALT. Normal troponin. Procalcitonin normal. Lipase was added to workup. COVID/flu/RSV negative. Patient is febrile and tachycardic in the emergency department. Blood cultures were also ordered. Patient empirically given IV Zosyn. CT abdomen/pelvis with IV contrast negative for acute abnormality. Patient to be admitted to hospitalist service. .
[2025-05-13] MEDS: PIPERACILLIN/TAZOBACTAM 4.5 GM/100 ML BAG IV ONE (23:36)
[2025-05-13 23:41] LABS: Appearance Urine Clear (Clear); Bacteria Urine Automated None Seen (None Seen); Epithelial Cell Urine Auto 0-2 /hpf (0-2); Glucose Urine UA Negative (Negative); WBC Urine Automated 0-5 /hpf (0-5)
[2025-05-13 23:44] LABS: Chlamydia pneumoniae PCR Not Detected (NotDetected); Coronavirus 229E PCR Not Detected (NotDetected); Coronavirus CoV-2 (COVID19)PCR Not Detected (NotDetected); Coronavirus HKU1 PCR Not Detected (NotDetected); Coronavirus NL63 PCR Not Detected (NotDetected); Coronavirus OC43PCR Not Detected (NotDetected); Human Metapneumovirus PCR Not Detected (NotDetected); Parainfluenza Virus 1 PCR Not Detected (NotDetected); Parainfluenza Virus 2 PCR Not Detected (NotDetected); Parainfluenza Virus 3 PCR Not Detected (NotDetected); Parainfluenza Virus 4 PCR Not Detected (NotDetected); Respiratory Syncytial VirusPCR Not Detected (NotDetected); Rhinovirus/Enterovirus PCR Not Detected (NotDetected)
[2025-05-13 23:58] LABS: Lipase 7.0 U/L (11-82)
--- NOTE | 2025-05-14 00:06 | XRay Report ---
Exam(s): XR CXR 1 VIEW EXAM: XR Chest, 1 View CLINICAL HISTORY: Sepsis. TECHNIQUE: Frontal view of the chest. COMPARISON: Chest radiographs 11/22/2024 FINDINGS: Lungs: Unremarkable. No consolidation. Pleural space: Unremarkable. No pneumothorax. Heart: Unremarkable. No cardiomegaly. Mediastinum: Unremarkable. Normal mediastinal contour. Bones/joints: There are degenerative changes of the spine. No acute fracture. IMPRESSION: No acute findings in the chest. Electronically signed by: Deanna Au MD 05/14/25 00:04 AM
--- NOTE | 2025-05-14 00:09 | Emergency Department Note ---
History of Present Illness General Chief complaint: Flu Like Symptoms Stated complaint: Flu Like Symptoms Time Seen by Provider: 05/13/25 21:25 History of Present Illness This 69-year-old male presents ER complaining of fever, chills, myalgias and arthralgias for the past day. Patient denies chest pain, dyspnea, abdominal pain, vomiting, diarrhea. Home Medications Medication Instructions Recorded Confirmed Type lisinopril 30 mg tablet 30 mg PO DAILY 11/14/24 05/13/25 History rosuvastatin 5 mg tablet 5 mg PO DAILY 11/14/24 05/13/25 History oxycodone-acetaminophen 5 mg-325 1 tab PO TID PRN Pain 05/13/25 05/13/25 History mg tablet Allergies Allergy/AdvReac Type Severity Reaction Status Date / Time No Known Allergies Allergy Mild Verified 05/13/25 23:17 Past Med/Surg History Problem List (Updated 05/14/25 @ 03:50 by Lisa Dominguez PA-C) Fever (Acute) Status post right knee replacement Disorder of left rotator cuff Abnormal chest x-ray Elevated LFTs (Acute) Alcohol use (Chronic) Depression (Chronic) Alcoholic ketoacidosis (Acute) Dyslipidemia (Chronic) HTN (hypertension) (Chronic) Medical History Right knee DJD Encounter for pre-operative examination History of depression DVT (deep venous thrombosis) Patient denies, "never told he ever had blood clots" Questionable DVT notation during 12/2018 [facility] admission. Portal vein US duplex 12/19/18 done (indication r/o PVT acute RUQ abdominal pain) with "Normal exam. No evidence of portal vein thrombosis" Hx of gastroesophageal reflux (GERD) History of hypertension Dyslipidemia Surgical History Hx of colonoscopy Hx of tonsillectomy Hx laparoscopic cholecystectomy History of total left knee replacement History of back surgery 1971, 2004, 2013 Hx of vasectomy Hx of arthroscopy of knee Hx of cataract extraction R/L Family History Uncle Coronary heart disease Father Stroke Social History Smoking Status: Never smoker Second Hand Exposure: No; Do You Dip or Chew Tobacco: Yes (Daily- Advised none DOS); Hx Alcohol Use: Yes (Hx Alcohol abuse per records, patient indicates no ETOH use during summer) Alcohol type: beer Hx Substance Use: Yes Substance Use Type Other:: OCCASIONALLY Preferred Language: Mohawk Communication Ability: Effective Plaque Maker Required: No Beliefs That Will Affect Care: None Current Living Situation: Spouse Feels Safe at Home: Yes Assistive Devices: Walker Review of Systems A total of 10 systems reviewed and were otherwise negative Physical Exam Vital Signs Vital Signs - 24 hr 05/13/25 21:25 05/13/25 21:25 05/13/25 21:29 Temperature 37.6 C H Temperature Source Oral Pulse Rate 125 H 124 H 124 H Pulse Rate [Finger] Pulse Rate from SpO2 Sensor Pulse Rhythm Regular Pulse Rhythm [Finger] Pulse Strength Normal Pulse Strength [Finger] Respiratory Rate 17 18 Respiratory Effort / Characteristics Non-Labored Spontaneous Respiratory Depth Normal Respiratory Pattern Regular Blood Pressure 119/81 140/86 Blood Pressure [Right Arm] Blood Pressure Mean 93 94 Blood Pressure Mean [Right Arm] Blood Pressure Position Sitting Blood Pressure Position [Right Arm] Pulse Oximetry 96 95 Oxygen Delivery Method Room Air Room Air Sepsis Recent Fever Within 48 Hours No Sepsis New/Unexplained Change in Mental Status N/A Sepsis Action Taken by Nursing No Action Required 05/13/25 21:30 05/13/25 21:42 05/13/25 21:51 Temperature Temperature Source Pulse Rate 124 H 109 H Pulse Rate [Finger] Pulse Rate from SpO2 Sensor 124 H Pulse Rhythm Pulse Rhythm [Finger] Pulse Strength Pulse Strength [Finger] Respiratory Rate 18 18 Respiratory Effort / Characteristics Respiratory Depth Respiratory Pattern Blood Pressure 119/81 125/82 Blood Pressure [Right Arm] Blood Pressure Mean 93 96 Blood Pressure Mean [Right Arm] Blood Pressure Position Blood Pressure Position [Right Arm] Pulse Oximetry 93 96 Oxygen Delivery Method Room Air Room Air Room Air Sepsis Recent Fever Within 48 Hours Sepsis New/Unexplained Change in Mental Status Sepsis Action Taken by Nursing 05/13/25 22:00 05/13/25 22:00 05/13/25 22:15 Temperature Temperature Source Pulse Rate 110 H 112 H 116 H Pulse Rate [Finger] Pulse Rate from SpO2 Sensor 116 H Pulse Rhythm Pulse Rhythm [Finger] Pulse Strength Pulse Strength [Finger] Respiratory Rate 21 17 21 Respiratory Effort / Characteristics Respiratory Depth Respiratory Pattern Blood Pressure 136/81 136/81 156/84 H Blood Pressure [Right Arm] Blood Pressure Mean 99 104 108 Blood Pressure Mean [Right Arm] Blood Pressure Position Blood Pressure Position [Right Arm] Pulse Oximetry 96 96 96 Oxygen Delivery Method Room Air Room Air Sepsis Recent Fever Within 48 Hours Sepsis New/Unexplained Change in Mental Status Sepsis Action Taken by Nursing 05/13/25 22:30 05/13/25 22:30 05/13/25 22:30 Temperature Temperature Source Pulse Rate 120 H 117 H Pulse Rate [Finger] Pulse Rate from SpO2 Sensor 120 H Pulse Rhythm Pulse Rhythm [Finger] Pulse Strength Pulse Strength [Finger] Respiratory Rate 23 24 Respiratory Effort / Characteristics Respiratory Depth Respiratory Pattern Blood Pressure 187/105 H 187/105 H 187/105 H Blood Pressure [Right Arm] Blood Pressure Mean 132 131 131 Blood Pressure Mean [Right Arm] Blood Pressure Position Blood Pressure Position [Right Arm] Pulse Oximetry 97 96 Oxygen Delivery Method Sepsis Recent Fever Within 48 Hours Sepsis New/Unexplained Change in Mental Status Sepsis Action Taken by Nursing 05/13/25 22:45 05/13/25 23:00 05/13/25 23:15 Temperature Temperature Source Pulse Rate 118 H 113 H 116 H Pulse Rate [Finger] Pulse Rate from SpO2 Sensor 118 H 113 H 116 H Pulse Rhythm Pulse Rhythm [Finger] Pulse Strength Pulse Strength [Finger] Respiratory Rate 22 20 19 Respiratory Effort / Characteristics Respiratory Depth Respiratory Pattern Blood Pressure 175/102 H 132/90 157/86 H Blood Pressure [Right Arm] Blood Pressure Mean 126 104 109 Blood Pressure Mean [Right Arm] Blood Pressure Position Blood Pressure Position [Right Arm] Pulse Oximetry 94 92 95 Oxygen Delivery Method Sepsis Recent Fever Within 48 Hours Sepsis New/Unexplained Change in Mental Status Sepsis Action Taken by Nursing 05/13/25 23:30 05/13/25 23:45 05/14/25 00:00 Temperature 38.3 C H Temperature Source Oral Pulse Rate 113 H 91 H Pulse Rate [Finger] 121 H Pulse Rate from SpO2 Sensor Pulse Rhythm Pulse Rhythm [Finger] Regular Pulse Strength Pulse Strength [Finger] Normal Respiratory Rate 20 19 20 Respiratory Effort / Characteristics Non-Labored Spontaneous Respiratory Depth Normal Respiratory Pattern Blood Pressure 119/68 127/71 Blood Pressure [Right Arm] 133/80 Blood Pressure Mean 85 91 Blood Pressure Mean [Right Arm] 97 Blood Pressure Position Blood Pressure Position [Right Arm] Lying Pulse Oximetry 98 97 95 Oxygen Delivery Method Room Air Sepsis Recent Fever Within 48 Hours Sepsis New/Unexplained Change in Mental Status Sepsis Action Taken by Nursing 05/14/25 00:30 05/14/25 00:45 Temperature Temperature Source Pulse Rate 101 H 95 H Pulse Rate [Finger] Pulse Rate from SpO2 Sensor Pulse Rhythm Pulse Rhythm [Finger] Pulse Strength Pulse Strength [Finger] Respiratory Rate 17 22 Respiratory Effort / Characteristics Respiratory Depth Respiratory Pattern Blood Pressure 130/76 124/68 Blood Pressure [Right Arm] Blood Pressure Mean 94 86 Blood Pressure Mean [Right Arm] Blood Pressure Position Blood Pressure Position [Right Arm] Pulse Oximetry Oxygen Delivery Method Sepsis Recent Fever Within 48 Hours Sepsis New/Unexplained Change in Mental Status Sepsis Action Taken by Nursing VITALS: Vitals are noted on the nurse's note and reviewed by myself. Vital signs febrile. GENERAL: Pleasant male mildly ill-appearing, in no acute distress, nondiaphoretic, well-developed well-nourished. SKIN: The skin was without rashes, erythema, edema, or bruising. There is no tenting of the skin. Capillary reflex less than 2 seconds. HEAD: Normocephalic atraumatic. EARS: External auditory canals clear EYES: Pupils equal round and reactive to light and accommodation. Conjunctivae without injection, sclerae without icterus. Extraocular movements intact. NOSE: Patent, no discharge. MOUTH: Mucous membranes mildly dry. Pharynx without erythema or exudate. Uvula midline. Airway patent. Tongue does not deviate. NECK: Supple without nuchal rigidity. No lymphadenopathy. No thyromegaly. Cervical spine is nontender. No JVD. HEART: Mildly tachycardic rate and rhythm LUNGS: Clear to auscultation bilaterally without wheezes, rales or rhonchi. No retractions or accessory muscle use. ABDOMEN: Positive bowel sounds x 4. Normal tympanic percussion. Soft, nontender, without masses or organomegaly. Morales sign negative. No guarding or rebound tenderness. No CVA tenderness MUSCULOSKELETAL: No muscle atrophy, erythema, or edema noted. NEURO: Patient was alert and oriented to person place and time. Normal sensation to light and sharp touch. No focal neurological deficits. Course Administered Medications Discontinued Medications Acetaminophen (Acetaminophen 500 Mg Tab) 1,000 mg PO NOW STA Stop: 05/13/25 21:39 Last Admin: 05/13/25 21:47 Dose: 1,000 mg Documented By: NAW Sodium Chloride (Nss) 1,000 mls @ 999 mls/hr IV .Q1H1M ONE Stop: 05/13/25 22:38 Last Infusion: 05/13/25 22:49 Dose: Infused Documented By: Admin: 05/13/25 21:47 Dose: 999 mls/hr Documented By: JOSE Piperacillin Sod/Tazobactam Sod (Zosyn) 4.5 gm in 100 mls @ 200 mls/hr IV NOW ONE; Protocol Stop: 05/13/25 23:05 Last Infusion: 05/14/25 00:10 Dose: Infused Documented By: Admin: 05/13/25 23:36 Dose: 200 mls/hr Documented By: JOSE Ibuprofen (Ibuprofen 800 Mg Tab) 800 mg PO NOW STA Stop: 05/13/25 23:44 Last Admin: 05/14/25 00:13 Dose: 800 mg Documented By: JOSE Ioversol (Optiray 320 100ml) 94 ml IV ONCE ONE Stop: 05/13/25 23:26 Last Admin: 05/13/25 23:25 Dose: 94 ml Documented By: CHONG Medical Decision Making Medical Records Attestation: I reviewed the patient's medical records. Home Medications Current Medication List: was personally reviewed by me Laboratory Data Attestation: I reviewed the patient's lab results. 05/13/25 21:37 05/13/25 21:37 Lab Results 05/13/25 05/13/25 05/13/25 Range/Units 21:25 21:25 21:25 WBC (4.8-10.8) K/ul RBC (4.70-6.10) M/uL Hgb (14.0-18.0) g/dL Hct (42.0-52.0) % MCV (80.0-100.0) fL MCH (25.0-34.0) pg MCHC (32.0-36.0) g/dL RDW Std Deviation (36.4-46.3) fL RDW Coeff of Panda (11.5-14.5) % Plt Count (130-400) K/uL MPV (9.4-12.4) fL Immature Gran % (Auto) % Neut % (Auto) % Lymph % (Auto) % [place] % (Auto) % Eos % (Auto) % Baso % (Auto) % Neut # (Auto) (1.40-6.50) K/uL Lymph # (Auto) (1.20-3.40) K/uL [place] # (Auto) (0.11-0.59) K/uL Eos # (Auto) (0.00-0.50) K/uL Baso # (Auto) (0.00-0.20) K/uL Immature Gran # (Auto) (0.01-0.20) K/uL PT (9.0-12.0) Seconds INR (0.9-1.1) Sodium (136-145) mmol/L Potassium (3.5-5.1) mmol/L Chloride (98-107) mmol/L Carbon Dioxide (21-32) mmol/L Anion Gap (3-11) BUN (6-23) mg/dl Creatinine (0.6-1.4) mg/dl Est Cr Clr Drug Dosing ml/min eGFR BUN/Creatinine Ratio (10-20) Glucose (70-99(Fasting)) mg/dl Lactate (0.4-2.0) mmol/L Calcium (8.6-10.3) mg/dl Magnesium (1.7-2.4) mg/dl Ferritin (8-388) ng/ml Total Bilirubin (0.2-1.0) mg/dl Direct Bilirubin (0-0.2) mg/dl AST (13-39) U/L ALT (7-52) U/L Alkaline Phosphatase (34-104) U/L Troponin I High Sens (0-20) pg/ml Total Protein (6.0-8.3) gm/dl Albumin (3.4-5.0) gm/dl Lipase (11-82) U/L Procalcitonin (0-0.5) ng/ml Urine Color Urine Appearance (Clear) Urine pH (4.5-7.5) Ur Specific [place] (1.000-1.030) Urine Protein (Negative) Urine Glucose (UA) (Negative) Urine Ketones (Negative) Urine Blood (Negative) Urine Nitrite (Negative) Urine Bilirubin (Negative) Urine Urobilinogen (Negative) Ur Leukocyte Esterase (Negative) Urine WBC (Auto) (0-5) /hpf Urine RBC (Auto) (0-2) /hpf U Hyaline Cast (Auto) (0-2) /lpf U Epithel Cells (Auto) (0-2) /hpf Urine Bacteria (Auto) (None Seen) Hyaline Casts (None Presnt) /lpf Urine Comment Ethyl Alcohol mg/dL (<10.0) mg/dl Adenovirus (PCR) Not Detected (NotDetected) B. pertussis DNA (PCR) Not Detected (NotDetected) B.parapertussis DNA PCR Not Detected (NotDetected) C. pneumoniae DNA (PCR) Not Detected (NotDetected) Coronavirus OC43 (PCR) Not Detected (NotDetected) Coronavirus HKU1 (PCR) Not Detected (NotDetected) Coronavirus 229E (PCR) Not Detected (NotDetected) SARS-CoV-2 (PCR) NEGATIVE Not Detected (Negative) Coronavirus NL63 (PCR) Not Detected (NotDetected) EBV Capsid Ag IgG Ab EBV Caps Ag IgG Sig Str (< 18.0) U/mL EBV Capsid Ag IgM Ab EBV Caps Ag IgM Sig Str (< 36.0) U/mL EBV Nuclear Antigen Ab EBV Nucl Ag IgG Sig Str (< 18.0) U/mL EBV Interpretation Hep Bs Antigen (Negative) Hepatitis C Antibody (Negative) Human Metapneumovir PCR Not Detected (NotDetected) Influenza Type A (PCR) Negative Not Detected (Neg) Influenza Type B (PCR) Negative (Neg) M. pneumoniae (PCR) (NotDetected) Parainfluenza 1 (PCR) (NotDetected) Parainfluenza 2 (PCR) (NotDetected) Parainfluenza 3 (PCR) (NotDetected) Parainfluenza 4 (PCR) (NotDetected) RSV (RT-PCR) (Neg) RSV (PCR) (NotDetected) Entero/Rhino (PCR) (NotDetected) 05/13/25 05/13/25 05/13/25 Range/Units 21:25 21:37 22:25 WBC 7.04 (4.8-10.8) K/ul RBC 4.90 (4.70-6.10) M/uL Hgb 14.5 (14.0-18.0) g/dL Hct 41.6 L (42.0-52.0) % MCV 84.9 (80.0-100.0) fL MCH 29.6 (25.0-34.0) pg MCHC 34.9 (32.0-36.0) g/dL RDW Std Deviation 37.3 (36.4-46.3) fL RDW Coeff of Panda 12.2 (11.5-14.5) % Plt Count 166 (130-400) K/uL MPV 9.3 L (9.4-12.4) fL Immature Gran % (Auto) 0.3 % Neut % (Auto) 84.0 % Lymph % (Auto) 12.2 % M[place]ulloch % (Auto) 2.0 % Eos % (Auto) 0.9 % Baso % (Auto) 0.6 % Neut # (Auto) 5.92 (1.40-6.50) K/uL Lymph # (Auto) 0.86 L (1.20-3.40) K/uL [place] # (Auto) 0.14 (0.11-0.59) K/uL Eos # (Auto) 0.06 (0.00-0.50) K/uL Baso # (Auto) 0.04 (0.00-0.20) K/uL Immature Gran # (Auto) 0.02 (0.01-0.20) K/uL PT (9.0-12.0) Seconds INR (0.9-1.1) Sodium 134 L (136-145) mmol/L Potassium 3.7 (3.5-5.1) mmol/L Chloride 99 (98-107) mmol/L Carbon Dioxide 26 (21-32) mmol/L Anion Gap 9 (3-11) BUN 20 (6-23) mg/dl Creatinine 0.86 (0.6-1.4) mg/dl Est Cr Clr Drug Dosing 84.0 ml/min eGFR 92.57 BUN/Creatinine Ratio 23.3 H (10-20) Glucose 177 H (70-99(Fasting)) mg/dl Lactate 2.7 H* (0.4-2.0) mmol/L Calcium 9.3 (8.6-10.3) mg/dl Magnesium 1.8 (1.7-2.4) mg/dl Ferritin (8-388) ng/ml Total Bilirubin 1.7 H (0.2-1.0) mg/dl Direct Bilirubin 0.3 H (0-0.2) mg/dl AST 226 H (13-39) U/L ALT 157 H (7-52) U/L Alkaline Phosphatase 115 H (34-104) U/L Troponin I High Sens 5.9 (0-20) pg/ml Total Protein 6.5 (6.0-8.3) gm/dl Albumin 4.1 (3.4-5.0) gm/dl Lipase 7 L (11-82) U/L Procalcitonin 0.48 (0-0.5) ng/ml Urine Color Dark Yellow Urine Appearance Clear (Clear) Urine pH 6.0 (4.5-7.5) Ur Specific [place] 1.029 (1.000-1.030) Urine Protein 1+ H (Negative) Urine Glucose (UA) Negative (Negative) Urine Ketones Trace H (Negative) Urine Blood Trace H (Negative) Urine Nitrite Positive A (Negative) Urine Bilirubin 1+ H (Negative) Urine Urobilinogen Positive H (Negative) Ur Leukocyte Esterase Trace H (Negative) Urine WBC (Auto) 0-5 (0-5) /hpf Urine RBC (Auto) 3-5 H (0-2) /hpf U Hyaline Cast (Auto) 3-5 H (0-2) /lpf U Epithel Cells (Auto) 0-2 (0-2) /hpf Urine Bacteria (Auto) None Seen (None Seen) Hyaline Casts Present A (None Presnt) /lpf Urine Comment Ethyl Alcohol mg/dL (<10.0) mg/dl Adenovirus (PCR) (NotDetected) B. pertussis DNA (PCR) (NotDetected) B.parapertussis DNA PCR (NotDetected) C. pneumoniae DNA (PCR) (NotDetected) Coronavirus OC43 (PCR) (NotDetected) Coronavirus HKU1 (PCR) (NotDetected) Coronavirus 229E (PCR) (NotDetected) SARS-CoV-2 (PCR) (Negative) Coronavirus NL63 (PCR) (NotDetected) EBV Capsid Ag IgG Ab EBV Caps Ag IgG Sig Str (< 18.0) U/mL EBV Capsid Ag IgM Ab EBV Caps Ag IgM Sig Str (< 36.0) U/mL EBV Nuclear Antigen Ab EBV Nucl Ag IgG Sig Str (< 18.0) U/mL EBV Interpretation Hep Bs Antigen (Negative) Hepatitis C Antibody (Negative) Human Metapneumovir PCR (NotDetected) Influenza Type A (PCR) (Neg) Influenza Type B (PCR) Not Detected (Neg) M. pneumoniae (PCR) Not Detected (NotDetected) Parainfluenza 1 (PCR) Not Detected (NotDetected) Parainfluenza 2 (PCR) Not Detected (NotDetected) Parainfluenza 3 (PCR) Not Detected (NotDetected) Parainfluenza 4 (PCR) Not Detected (NotDetected) RSV (RT-PCR) Negative (Neg) RSV (PCR) Not Detected (NotDetected) Entero/Rhino (PCR) Not Detected (NotDetected) 05/13/25 05/14/25 Range/Units 23:45 01:02 WBC (4.8-10.8) K/ul RBC (4.70-6.10) M/uL Hgb (14.0-18.0) g/dL Hct (42.0-52.0) % MCV (80.0-100.0) fL MCH (25.0-34.0) pg MCHC (32.0-36.0) g/dL RDW Std Deviation (36.4-46.3) fL RDW Coeff of Panda (11.5-14.5) % Plt Count (130-400) K/uL MPV (9.4-12.4) fL Immature Gran % (Auto) % Neut % (Auto) % Lymph % (Auto) % [place] % (Auto) % Eos % (Auto) % Baso % (Auto) % Neut # (Auto) (1.40-6.50) K/uL Lymph # (Auto) (1.20-3.40) K/uL [place] # (Auto) (0.11-0.59) K/uL Eos # (Auto) (0.00-0.50) K/uL Baso # (Auto) (0.00-0.20) K/uL Immature Gran # (Auto) (0.01-0.20) K/uL PT 11.6 (9.0-12.0) Seconds INR 1.1 (0.9-1.1) Sodium (136-145) mmol/L Potassium (3.5-5.1) mmol/L Chloride (98-107) mmol/L Carbon Dioxide (21-32) mmol/L Anion Gap (3-11) BUN (6-23) mg/dl Creatinine (0.6-1.4) mg/dl Est Cr Clr Drug Dosing ml/min eGFR BUN/Creatinine Ratio (10-20) Glucose (70-99(Fasting)) mg/dl Lactate 1.4 (0.4-2.0) mmol/L Calcium (8.6-10.3) mg/dl Magnesium (1.7-2.4) mg/dl Ferritin 554.1 H (8-388) ng/ml Total Bilirubin 1.3 H (0.2-1.0) mg/dl Direct Bilirubin 0.3 H (0-0.2) mg/dl AST 123 H (13-39) U/L ALT 125 H (7-52) U/L Alkaline Phosphatase 102 (34-104) U/L Troponin I High Sens (0-20) pg/ml Total Protein 5.8 L (6.0-8.3) gm/dl Albumin 3.7 (3.4-5.0) gm/dl Lipase (11-82) U/L Procalcitonin (0-0.5) ng/ml Urine Color Urine Appearance (Clear) Urine pH (4.5-7.5) Ur Specific [place] (1.000-1.030) Urine Protein (Negative) Urine Glucose (UA) (Negative) Urine Ketones (Negative) Urine Blood (Negative) Urine Nitrite (Negative) Urine Bilirubin (Negative) Urine Urobilinogen (Negative) Ur Leukocyte Esterase (Negative) Urine WBC (Auto) (0-5) /hpf Urine RBC (Auto) (0-2) /hpf U Hyaline Cast (Auto) (0-2) /lpf U Epithel Cells (Auto) (0-2) /hpf Urine Bacteria (Auto) (None Seen) Hyaline Casts (None Presnt) /lpf Urine Comment Ethyl Alcohol mg/dL < 10.0 (<10.0) mg/dl Adenovirus (PCR) (NotDetected) B. pertussis DNA (PCR) (NotDetected) B.parapertussis DNA PCR (NotDetected) C. pneumoniae DNA (PCR) (NotDetected) Coronavirus OC43 (PCR) (NotDetected) Coronavirus HKU1 (PCR) (NotDetected) Coronavirus 229E (PCR) (NotDetected) SARS-CoV-2 (PCR) (Negative) Coronavirus NL63 (PCR) (NotDetected) EBV Capsid Ag IgG Ab Positive EBV Caps Ag IgG Sig Str > 750.0 (< 18.0) U/mL EBV Capsid Ag IgM Ab Negative EBV Caps Ag IgM Sig Str < 10.0 (< 36.0) U/mL EBV Nuclear Antigen Ab Positive EBV Nucl Ag IgG Sig Str > 600.0 (< 18.0) U/mL EBV Interpretation See Comment Hep Bs Antigen Negative (Negative) Hepatitis C Antibody Negative (Negative) Human Metapneumovir PCR (NotDetected) Influenza Type A (PCR) (Neg) Influenza Type B (PCR) (Neg) M. pneumoniae (PCR) (NotDetected) Parainfluenza 1 (PCR) (NotDetected) Parainfluenza 2 (PCR) (NotDetected) Parainfluenza 3 (PCR) (NotDetected) Parainfluenza 4 (PCR) (NotDetected) RSV (RT-PCR) (Neg) RSV (PCR) (NotDetected) Entero/Rhino (PCR) (NotDetected) Imaging Data Attestation: I personally reviewed and interpreted this imaging study as follows: Radiologist's Impression: Chest X-Ray 05/13/25 21:38 Exam(s): XR CXR 1 VIEW EXAM: XR Chest, 1 View CLINICAL HISTORY: Sepsis. TECHNIQUE: Frontal view of the chest. COMPARISON: Chest radiographs 11/22/2024 FINDINGS: Lungs: Unremarkable. No consolidation. Pleural space: Unremarkable. No pneumothorax. Heart: Unremarkable. No cardiomegaly. Mediastinum: Unremarkable. Normal mediastinal contour. Bones/joints: There are degenerative changes of the spine. No acute fracture. IMPRESSION: No acute findings in the chest. Electronically signed by: Deanna Au MD 05/14/25 00:04 AM Abdomen/Pelvis CT 05/13/25 22:36 Exam(s): CT ABDOMEN + PELVIS With Contrast IV Amt: 94 cc's optiray 320 EXAM: CT Abdomen and Pelvis With Intravenous Contrast CLINICAL HISTORY: Reason for exam: fever, elevated lfts. OTHER: Other Notes: Pt arrived from home via ALS c/o "shaking", weakness, decreased oral intake. Pt states he has not felt well since yesterday and has had "uncontrollable shaking, to the point i dropped my phone". Fever noted by EMS. Pt denies hx of neurological disorders, headache abdominal pain, chest pain or cough. 94 ml opti 320 TECHNIQUE: Axial computed tomography images of the abdomen and pelvis with intravenous contrast. Automated exposure control was utilized for the study. A dose lowering technique was utilized adhering to the principles of ALARA. CONTRAST: Patient received 94 cc's optiray 320 of IV contrast COMPARISON: 04/20/2016 FINDINGS: Lung bases: Calcified left lower lobe granuloma. No consolidation. ABDOMEN: Liver: Unremarkable. No mass. Gallbladder and bile ducts: Postop changes prior cholecystectomy. No ductal dilation. Pancreas: Unremarkable. No mass. No ductal dilation. Spleen: Splenic granuloma. Adrenals: Unremarkable. No mass. Kidneys and ureters: Unremarkable. No solid mass. No hydronephrosis. Stomach and bowel: Unremarkable. No obstruction. No mucosal thickening. PELVIS: Appendix: No findings to suggest acute appendicitis. Bladder: The urinary bladder is underdistention but demonstrates wall thickening without significant associated inflammatory changes. Reproductive: Unremarkable as visualized. ABDOMEN and PELVIS: Intraperitoneal space: Unremarkable. No free air. No significant fluid collection. Bones/joints: Postop changes L2 through L5 interbody fusion. No acute fracture. No dislocation. Soft tissues: Unremarkable. Vasculature: Unremarkable. No abdominal aortic aneurysm. Lymph nodes: Unremarkable. No enlarged lymph nodes. IMPRESSION: No acute findings in the abdomen or pelvis. Electronically signed by: Tate Mendoza MD 05/14/25 00:16 AM [facility] Narrative Prior records/ancillary studies reviewed. Triage Nursing notes reviewed. Additional history obtained from EMS. The patient's history was concerning for fever. Differential diagnosis: Etiologies such as viral syndrome, otitis, pharyngitis, pneumonia, influenza, meningitis, urinary tract infection, sepsis, bacteremia, as well as others were entertained. Physical examination: As above ER treatment provided: An order was placed for continuous cardiac monitoring. The monitor shows a rate of 60-1 20 with a sinus rhythm per my interpretation. IV fluids, Tylenol Motrin ordered Zosyn was ordered for possible bacterial infection On reassessment the patient felt better. Diagnostics interpreted by me: ECG: Ordered for weakness EKG: Normal sinus, occasional PVC, no acute ST-T wave changes, rate of 126. Impression sinus tachycardia occasional PVC independently interpreted by myself The labs Independently Interpreted by myself revealed no worrisome leukocytosis, elevated LFTs, negative procalcitonin, elevated lactic and repeat was normal Blood cultures pending Negative [employer] Imaging studies: Imaging was reviewed and read by radiology Consultation: A consultation was placed with hospitalist. The case was discussed and diagnostics were reviewed. The patient was evaluated in the ER for further treatment. This appears to be consistent with fever with elevated LFTs and elevated lactate that cleared with IV fluids. CT was negative. Gallbladder is been surgically removed. Normal lipase. No pneumonia. Negative urine. Medicine was consulted and the case was discussed. He will be admitted to the medical service for further workup for fever and elevated LFTs.. By the evaluation outlined above emergent etiologies such as otitis, pharyngitis, pneumonia, meningitis, urinary tract infection, bacteremia, as well as others were deemed relatively unlikely. The pt informed about the findings as listed above. All questions were answered and pleased with the treatment. The chart was completed utilizing [employer] voice recognition software. Grammatical errors, random word insertions, pronoun errors, and incomplete sentences are an occassional consequence of this system due to software limitations, ambient noise, and hardware issues. Any formal questions or concerns about the content, text, or information contained within the body of this dictation should be directly addressed to the physician assistant boys track coach for clarification. Impression & Plan Fever, Elevated LFTs Discharge Plan Visit Data Chief Complaint: Flu Like Symptoms Stated Complaint: Flu Like Symptoms ED Provider: Radha Barry ED Midlevel Provider: Lisa Dominguez Discharge Problem: Fever, Elevated LFTs Patient Disposition: Admitted As Inpatient Condition: Good Discharge Instructions Interventions: ED Discharge Assessment Last Done: 05/14/25 02:33 Discharge Problem: Fever Qualifiers: Fever type: unspecified Qualified Code(s): R50.9 - Fever, unspecified
[2025-05-14] MEDS: IBUPROFEN 800 MG TAB PO STA (00:13)
--- NOTE | 2025-05-14 00:18 | CT Scan Report ---
Exam(s): CT ABDOMEN + PELVIS With Contrast IV Amt: 94 cc's optiray 320 EXAM: CT Abdomen and Pelvis With Intravenous Contrast CLINICAL HISTORY: Reason for exam: fever, elevated lfts. OTHER: Other Notes: Pt arrived from home via ALS c/o "shaking", weakness, decreased oral intake. Pt states he has not felt well since yesterday and has had "uncontrollable shaking, to the point i dropped my phone". Fever noted by EMS. Pt denies hx of neurological disorders, headache abdominal pain, chest pain or cough. 94 ml opti 320 TECHNIQUE: Axial computed tomography images of the abdomen and pelvis with intravenous contrast. Automated exposure control was utilized for the study. A dose lowering technique was utilized adhering to the principles of ALARA. CONTRAST: Patient received 94 cc's optiray 320 of IV contrast COMPARISON: 04/20/2016 FINDINGS: Lung bases: Calcified left lower lobe granuloma. No consolidation. ABDOMEN: Liver: Unremarkable. No mass. Gallbladder and bile ducts: Postop changes prior cholecystectomy. No ductal dilation. Pancreas: Unremarkable. No mass. No ductal dilation. Spleen: Splenic granuloma. Adrenals: Unremarkable. No mass. Kidneys and ureters: Unremarkable. No solid mass. No hydronephrosis. Stomach and bowel: Unremarkable. No obstruction. No mucosal thickening. PELVIS: Appendix: No findings to suggest acute appendicitis. Bladder: The urinary bladder is underdistention but demonstrates wall thickening without significant associated inflammatory changes. Reproductive: Unremarkable as visualized. ABDOMEN and PELVIS: Intraperitoneal space: Unremarkable. No free air. No significant fluid collection. Bones/joints: Postop changes L2 through L5 interbody fusion. No acute fracture. No dislocation. Soft tissues: Unremarkable. Vasculature: Unremarkable. No abdominal aortic aneurysm. Lymph nodes: Unremarkable. No enlarged lymph nodes. IMPRESSION: No acute findings in the abdomen or pelvis. Electronically signed by: Tate Mendoza MD 05/14/25 00:16 AM
--- NOTE | 2025-05-14 00:41 | History & Physical Report ---
Date of Service May 14, 2025 Assessment & Plan (1) Transaminitis: Plan 69-year-old male PMHx alcohol use, elevated LFTs, alcoholic ketoacidosis, dyslipidemia, and HTN presenting for "shaking", weakness, and decreased intake over the past day. His evaluation is significant for a pseudohyponatremia in the setting of hyperglycemia, also with initially elevated lactate which did seem to decrease following IVF. Liver enzymes are elevated with total bilirubin 1.7, direct 0.3, AST 226, ALT 157, and alkaline phosphatase 115. No indication of infection otherwise, but he does have a fever. CTAP does not reveal any acute findings. Admission for transaminitis and further evaluation of such. #Transaminitis Prior history of alcoholic ketoacidosis, alcohol use, elevated LFTs. Presently denying any alcohol use. Also denies excessive Tylenol use. Presenting with flulike symptoms for the past day, elevated liver enzymes. No abdominal pain. Denies prior hepatitis or mono. [id number] is admitted to the hospital, patient has been visiting him recently. - CBC, unremarkable; lactate initially elevated at 2.7, then on repeat 1.4; procalcitonin 0.48 - CMP with total bilirubin 1.7, AST 226, ALT 157, alkaline phosphatase 115; direct bilirubin 0.3 - PT/INR, ferritin, alcohol level pending - [place] + hepatitis panel pending - CTAP no acute findings - HOLD rosuvastatin and Percocet - Zofran prn N/V - IBU prn pain - Zosyn IV - continue - Consider GI consult pending remaining workup - no consult placed at time of admission. #Hyponatremia In setting of hyperglycemia. - Na 134, glucose 177; Corrected 136 - Trend BMP am #HTN- Lisinopril - continue #Pain- Percocet - hold in setting of transaminitis with acetaminophen #HLD- Rosuvastatin - hold given transaminitis Dispo: Obs, med/sx VTE Prophylaxis: SCDs This document was dictated utilizing [employer]. Please excuse any grammatical errors that may be secondary to use of this software. Admission and Anticipated Discharge Date Admission Date: 05/14/2025 History of Present Illness Chief Complaint: Flu-like symptoms Primary Care Provider: Moris Phillips MD 69-year-old male PMHx alcohol use, elevated LFTs, alcoholic ketoacidosis, dyslipidemia, and HTN presenting for "shaking", weakness, and decreased intake over the past day. When asked how he feels, patient states "hell of a lot better." States also that he "does not drink." Reports that over the past 2 days ICER MACHINE he has just had a decreased appetite, not eating or drinking much. He does then state that he actually had a crab cake sandwich and nonalcoholic egg melon prior to coming into the hospital, but this has been the most food he has eaten over the past few days. He states the night ICER MACHINE he had full body trembling that did not appear to cease on its own. He also has some nausea without vomiting throughout the course of this episode. He has been taking Percocet since the Thursday ICER MACHINE, approximately 3 pills/day but does not feel that this has been helping his back or leg pain. He reports that he has had chronic back and leg pain, having multiple MRIs for such. He is scheduled to have back surgery. Also reports that his brother is in the hospital when he visited him over a week [employer]ER MACHINE, reporting that his brother has "rare bacteria" but is unable to specify what this bacteria is. Patient states that at present, he feels better than he did previously. He denies chest pain, SOB, palpitations, abdominal pain, N/V/D/C, numbness/tingling, fever, URI symptoms, LUTS, weakness, syncope, or falls. His main concern was the full body shaking and being told he had had a fever. Denies alcohol use, states that he stopped drinking alcohol in July 2024, stating that he only had a few drinks on special occasions. These occasions include 18 November as well as better and stay which was in March. Denies any alcohol use since then. No other medication adjustments. Prior history of transaminitis, appears to be related to alcohol use at that time. ED evaluation reveals CBC without leukocytosis or leukopenia, H&H 14.5/41.6, stable platelets; CMP sodium 134, glucose 177, BUN/creatinine ratio 23.3, total bilirubin 1.7, direct bilirubin 0.3, AST 226, ALT 157, alkaline phosphatase 115; lipase 7; lactate 2.7, 1.4 on repeat; procalcitonin 0.48; UA negative for infection; BioFire negative; CXR WNL; CTAP no acute findings in the abdomen or pelvis.; Provided with 1L NSS, Zosyn 4.5 g IV, ibuprofen 80 mg p.o., and acetaminophen 1 g p.o. in ED. Please see Dr. Green's attestation for adjustments/additions to treatment plan. Allergies Allergy/AdvReac Type Severity Reaction Status Date / Time No Known Allergies Allergy Mild Verified 05/13/25 23:17 Home Medications Medication Instructions Recorded Confirmed Type lisinopril 30 mg tablet 30 mg PO DAILY 11/14/24 05/13/25 History rosuvastatin 5 mg tablet 5 mg PO DAILY 11/14/24 05/13/25 History oxycodone-acetaminophen 5 mg-325 1 tab PO TID PRN Pain 05/13/25 05/13/25 History mg tablet Past Med/Surg History Problem List (Updated 05/14/25 @ 03:50 by Lisa Dominguez PA-C) Fever (Acute) Status post right knee replacement Disorder of left rotator cuff Abnormal chest x-ray Elevated LFTs (Acute) Alcohol use (Chronic) Depression (Chronic) Alcoholic ketoacidosis (Acute) Dyslipidemia (Chronic) HTN (hypertension) (Chronic) Medical History Right knee DJD Encounter for pre-operative examination History of depression DVT (deep venous thrombosis) Patient denies, "never told he ever had blood clots" Questionable DVT notation during 12/2018 [facility] admission. Portal vein US duplex 12/19/18 done (indication r/o PVT acute RUQ abdominal pain) with "Normal exam. No evidence of portal vein thrombosis" Hx of gastroesophageal reflux (GERD) History of hypertension Dyslipidemia Surgical History Hx of colonoscopy Hx of tonsillectomy Hx laparoscopic cholecystectomy History of total left knee replacement History of back surgery 1971, 2004, 2013 Hx of vasectomy Hx of arthroscopy of knee Hx of cataract extraction R/L Family History Uncle Coronary heart disease Father Stroke Social History Smoking Status: Never smoker Second Hand Exposure: No; Do You Dip or Chew Tobacco: Yes (Daily- Advised none DOS); Hx Alcohol Use: Yes (Hx Alcohol abuse per records, patient indicates no ETOH use during summer) Alcohol type: beer Hx Substance Use: Yes Substance Use Type Other:: OCCASIONALLY Preferred Language: Persian Communication Ability: Effective Presentation Designer Required: No Beliefs That Will Affect Care: None Current Living Situation: Spouse Feels Safe at Home: Yes Assistive Devices: Walker Review of Systems Review of Systems: All systems reviewed & are unremarkable except as noted in Subjective Physical Exam Physical Exam: General: No acute distress Skin: Warm and dry Head: Normocephalic, atraumatic Eyes: PERRL, conjunctivae clear, sclera non-icteric ENT: External ear and ear canal without swelling; nose atraumatic; good dentition, tongue normal appearance, pharynx normal Neck: Supple, no LAD Cardio: RRR, no M/G/R, S1 and S2 normal Resp: No respiratory distress, Lungs CTA in all lobes bilaterally, no wheezes, rales, or rhonchi Abdomen: Soft, symmetric, nontender; No masses or hepatosplenomegaly; Bowel roque nds normoactive MSK: No deformities; pulses palpable and equal; no edema. Neuro: Awake, alert; Sensation intact bilaterally; CN grossly intact Psych: Appropriate mood and affect; good judgement and insight. Results & Data Results & Data Vital Signs (Past 12 Hours) Vital Signs Temp Pulse Pulse Resp BP BP Pulse Ox 05/14/25 00:00 91 H 20 127/71 95 05/13/25 23:45 113 H 19 119/68 97 05/13/25 23:30 38.3 C H 121 H 20 133/80 98 05/13/25 23:15 116 H 19 157/86 H 95 05/13/25 23:00 113 H 20 132/90 92 05/13/25 22:45 118 H 22 175/102 H 94 05/13/25 22:30 117 H 24 187/105 H 96 05/13/25 22:30 187/105 H 05/13/25 22:30 120 H 23 187/105 H 97 05/13/25 22:15 116 H 21 156/84 H 96 05/13/25 22:00 112 H 17 136/81 96 05/13/25 22:00 110 H 21 136/81 96 05/13/25 21:51 109 H 18 125/82 96 05/13/25 21:42 05/13/25 21:30 124 H 18 119/81 93 05/13/25 21:29 124 H 05/13/25 21:25 124 H 18 140/86 95 05/13/25 21:25 37.6 C H 125 H 17 119/81 96 O2 Del Method 05/14/25 00:00 05/13/25 23:45 05/13/25 23:30 Room Air 05/13/25 23:15 05/13/25 23:00 05/13/25 22:45 05/13/25 22:30 05/13/25 22:30 05/13/25 22:30 05/13/25 22:15 05/13/25 22:00 Room Air 05/13/25 22:00 Room Air 05/13/25 21:51 Room Air 05/13/25 21:42 Room Air 05/13/25 21:30 Room Air 05/13/25 21:29 05/13/25 21:25 Room Air 05/13/25 21:25 Room Air Laboratory Results 05/13/25 22:25 Urine Culture - Pending Urine,Clean Catch 05/13/25 21:37 Aerobic Blood Culture - Pending Blood Anaerobic Blood Culture - Pending 05/13/25 21:38 Aerobic Blood Culture - Pending Blood Anaerobic Blood Culture - Pending 05/13/25 05/13/25 05/13/25 23:45 22:25 21:37 WBC 7.04 RBC 4.90 Hgb 14.5 Hct 41.6 L MCV 84.9 MCH 29.6 MCHC 34.9 RDW Std Deviation 37.3 RDW Coeff of Panda 12.2 Plt Count 166 MPV 9.3 L Immature Gran % (Auto) 0.3 Neut % (Auto) 84.0 Lymph % (Auto) 12.2 [place] % (Auto) 2.0 Eos % (Auto) 0.9 Baso % (Auto) 0.6 Neut # (Auto) 5.92 Lymph # (Auto) 0.86 L [place] # (Auto) 0.14 Eos # (Auto) 0.06 Baso # (Auto) 0.04 Immature Gran # (Auto) 0.02 Sodium 134 L Potassium 3.7 Chloride 99 Carbon Dioxide 26 Anion Gap 9 BUN 20 Creatinine 0.86 Est Cr Clr Drug Dosing 84.0 eGFR 92.57 BUN/Creatinine Ratio 23.3 H Glucose 177 H Lactate 1.4 2.7 H* Calcium 9.3 Magnesium 1.8 Total Bilirubin 1.7 H Direct Bilirubin 0.3 H AST 226 H ALT 157 H Alkaline Phosphatase 115 H Troponin I High Sens 5.9 Total Protein 6.5 Albumin 4.1 Lipase 7 L Procalcitonin 0.48 Urine Color Dark Yellow Urine Appearance Clear Urine pH 6.0 Ur Specific [place] 1.029 Urine Protein 1+ H Urine Glucose (UA) Negative Urine Ketones Trace H Urine Blood Trace H Urine Nitrite Positive A Urine Bilirubin 1+ H Urine Urobilinogen Positive H Ur Leukocyte Esterase Trace H Urine WBC (Auto) 0-5 Urine RBC (Auto) 3-5 H U Hyaline Cast (Auto) 3-5 H U Epithel Cells (Auto) 0-2 Urine Bacteria (Auto) None Seen Hyaline Casts Present A Urine Comment Adenovirus (PCR) B. pertussis DNA (PCR) B.parapertussis DNA PCR C. pneumoniae DNA (PCR) Coronavirus OC43 (PCR) Coronavirus HKU1 (PCR) Coronavirus 229E (PCR) SARS-CoV-2 (PCR) Coronavirus NL63 (PCR) Human Metapneumovir PCR Influenza Type A (PCR) Influenza Type B (PCR) M. pneumoniae (PCR) Parainfluenza 1 (PCR) Parainfluenza 2 (PCR) Parainfluenza 3 (PCR) Parainfluenza 4 (PCR) RSV (RT-PCR) RSV (PCR) Entero/Rhino (PCR) 05/13/25 05/13/25 05/13/25 21:25 21:25 21:25 WBC RBC Hgb Hct MCV MCH MCHC RDW Std Deviation RDW Coeff of [place]anda Plt Count MPV Immature Gran % (Auto) Neut % (Auto) Lymph % (Auto) [place] % (Auto) Eos % (Auto) Baso % (Auto) Neut # (Auto) Lymph # (Auto) [place] # (Auto) Eos # (Auto) Baso # (Auto) Immature Gran # (Auto) Sodium Potassium Chloride Carbon Dioxide Anion Gap BUN Creatinine Est Cr Clr Drug Dosing eGFR BUN/Creatinine Ratio Glucose Lactate Calcium Magnesium Total Bilirubin Direct Bilirubin AST ALT Alkaline Phosphatase Troponin I High Sens Total Protein Albumin Lipase Procalcitonin Urine Color Urine Appearance Urine pH Ur Specific [place] Urine Protein Urine Glucose (UA) Urine Ketones Urine Blood Urine Nitrite Urine Bilirubin Urine Urobilinogen Ur Leukocyte Esterase Urine WBC (Auto) Urine RBC (Auto) U Hyaline Cast (Auto) U Epithel Cells (Auto) Urine Bacteria (Auto) Hyaline Casts Urine Comment Adenovirus (PCR) B. pertussis DNA (PCR) B.parapertussis DNA PCR C. pneumoniae DNA (PCR) Coronavirus OC43 (PCR) Coronavirus HKU1 (PCR) Coronavirus 229E (PCR) SARS-CoV-2 (PCR) Not Detected Coronavirus NL63 (PCR) Not Detected Human Metapneumovir PCR Not Detected Influenza Type A (PCR) Not Detected Negative Influenza Type B (PCR) Not Detected Negative M. pneumoniae (PCR) Not Detected Parainfluenza 1 (PCR) Not Detected Parainfluenza 2 (PCR) Not Detected Parainfluenza 3 (PCR) Not Detected Parainfluenza 4 (PCR) Not Detected RSV (RT-PCR) Negative RSV (PCR) Not Detected Entero/Rhino (PCR) Not Detected 05/13/25 21:25 WBC RBC Hgb Hct MCV MCH MCHC RDW Std Deviation RDW Coeff of [place]anda Plt Count MPV Immature Gran % (Auto) Neut % (Auto) Lymph % (Auto) [place] % (Auto) Eos % (Auto) Baso % (Auto) Neut # (Auto) Lymph # (Auto) [place] # (Auto) Eos # (Auto) Baso # (Auto) Immature Gran # (Auto) Sodium Potassium Chloride Carbon Dioxide Anion Gap BUN Creatinine Est Cr Clr Drug Dosing eGFR BUN/Creatinine Ratio Glucose Lactate Calcium Magnesium Total Bilirubin Direct Bilirubin AST ALT Alkaline Phosphatase Troponin I High Sens Total Protein Albumin Lipase Procalcitonin Urine Color Urine Appearance Urine pH Ur Specific [place] Urine Protein Urine Glucose (UA) Urine Ketones Urine Blood Urine Nitrite Urine Bilirubin Urine Urobilinogen Ur Leukocyte Esterase Urine WBC (Auto) Urine RBC (Auto) U Hyaline Cast (Auto) U Epithel Cells (Auto) Urine Bacteria (Auto) Hyaline Casts Urine Comment Adenovirus (PCR) Not Detected B. pertussis DNA (PCR) Not Detected B.parapertussis DNA PCR Not Detected C. pneumoniae DNA (PCR) Not Detected Coronavirus OC43 (PCR) Not Detected Coronavirus HKU1 (PCR) Not Detected Coronavirus 229E (PCR) Not Detected SARS-CoV-2 (PCR) NEGATIVE Coronavirus NL63 (PCR) Human Metapneumovir PCR Influenza Type A (PCR) Influenza Type B (PCR) M. pneumoniae (PCR) Parainfluenza 1 (PCR) Parainfluenza 2 (PCR) Parainfluenza 3 (PCR) Parainfluenza 4 (PCR) RSV (RT-PCR) RSV (PCR) Entero/Rhino (PCR) Diagnostic Findings Chest X-Ray 05/13/25 21:38 Exam(s): XR CXR 1 VIEW EXAM: XR Chest, 1 View CLINICAL HISTORY: Sepsis. TECHNIQUE: Frontal view of the chest. COMPARISON: Chest radiographs 11/22/2024 FINDINGS: Lungs: Unremarkable. No consolidation. Pleural space: Unremarkable. No pneumothorax. Heart: Unremarkable. No cardiomegaly. Mediastinum: Unremarkable. Normal mediastinal contour. Bones/joints: There are degenerative changes of the spine. No acute fracture. IMPRESSION: No acute findings in the chest. Electronically signed by: Deanna Au MD 05/14/25 00:04 AM Abdomen/Pelvis CT 05/13/25 22:36 Exam(s): CT ABDOMEN + PELVIS With Contrast IV Amt: 94 cc's optiray 320 EXAM: CT Abdomen and Pelvis With Intravenous Contrast CLINICAL HISTORY: Reason for exam: fever, elevated lfts. OTHER: Other Notes: Pt arrived from home via ALS c/o "shaking", weakness, decreased oral intake. Pt states he has not felt well since yesterday and has had "uncontrollable shaking, to the point i dropped my phone". Fever noted by EMS. Pt denies hx of neurological disorders, headache abdominal pain, chest pain or cough. 94 ml opti 320 TECHNIQUE: Axial computed tomography images of the abdomen and pelvis with intravenous contrast. Automated exposure control was utilized for the study. A dose lowering technique was utilized adhering to the principles of ALARA. CONTRAST: Patient received 94 cc's optiray 320 of IV contrast COMPARISON: 04/20/2016 FINDINGS: Lung bases: Calcified left lower lobe granuloma. No consolidation. ABDOMEN: Liver: Unremarkable. No mass. Gallbladder and bile ducts: Postop changes prior cholecystectomy. No ductal dilation. Pancreas: Unremarkable. No mass. No ductal dilation. Spleen: Splenic granuloma. Adrenals: Unremarkable. No mass. Kidneys and ureters: Unremarkable. No solid mass. No hydronephrosis. Stomach and bowel: Unremarkable. No obstruction. No mucosal thickening. PELVIS: Appendix: No findings to suggest acute appendicitis. Bladder: The urinary bladder is underdistention but demonstrates wall thickening without significant associated inflammatory changes. Reproductive: Unremarkable as visualized. ABDOMEN and PELVIS: Intraperitoneal space: Unremarkable. No free air. No significant fluid collection. Bones/joints: Postop changes L2 through L5 interbody fusion. No acute fracture. No dislocation. Soft tissues: Unremarkable. Vasculature: Unremarkable. No abdominal aortic aneurysm. Lymph nodes: Unremarkable. No enlarged lymph nodes. IMPRESSION: No acute findings in the abdomen or pelvis. Electronically signed by: Tate Mendoza MD 05/14/25 00:16 AM Medications Administered 1L NSS Zosyn 4.5 g IV Ibuprofen 80 mg p.o. Acetaminophen 1 g p.o. Code Status & VTE Plan Code Status Full Supervising Physician Co-Signing Physician Notes Patient seen and examined, chart reviewed, case discussed with IRASEMA Dominguez and I agree with the assessment and plan as above PG Care Time/CCT Total # of Minutes Spent Total Time Spent with Patient: Total time spent is greater than 50% in coordination of care (as documented) at patient's floor/unit and/or counseling patient: Coding Level of Care Code 26263 INT INP/OBS CARE 3/75MIN Diagnoses Transaminitis R74.0
[2025-05-14 02:03] LABS: Ferritin 554.1 ng/ml (8-388)
[2025-05-14 02:08] LABS: EBV Nuclear Antigen IgG Ab Positive; EBV Nuclear Antigen IgG Quant > 600.0 U/mL (< 18.0)
[2025-05-14 02:09] LABS: EBV IgG Antibody Positive; EBV IgG Quant > 750.0 U/mL (< 18.0); EBV IgM Antibody Negative; EBV IgM Quant < 10.0 U/mL (< 36.0)
[2025-05-14 02:15] LABS: Hep B Surface Ag with confirm Negative (Negative)
[2025-05-14 02:19] LABS: INR 1.1 (0.9-1.1); Prothrombin Time 11.6 Seconds (9.0-12.0)
[2025-05-14 02:21] LABS: Hep C Ab Rflx HepCQuant RNA Negative (Negative)
[2025-05-14] MEDS ORDERED: ONDANSETRON INJ 2 MG/ML 2 ML VIAL IV PRN (02:33)
[2025-05-14 03:07] LABS: Alanine Aminotransferase 125.0 U/L (7-52); Albumin Level 3.7 gm/dl (3.4-5.0); Alkaline Phosphatase 102.0 U/L (34-104); Bilirubin,Total 1.3 mg/dl (0.2-1.0); Total Protein 5.8 gm/dl (6.0-8.3)
[2025-05-14] MEDS: PIPERACILLIN/TAZOBACTAM 4.5 GM/100 ML BAG IV SCH (05:02)
[2025-05-14 10:39] LABS: A calco-baum cmplx NotReported Not Detected (NotDetected); Bact fragilis Not Reported Not Detected (NotDetected); Blood Culture Id Panel See PCR Comment (NotDetected); C auris Not Reported Not Detected (NotDetected); CTX-M Resistant Gene Not Detected (NotDetected); Calbicans Not Reported Not Detected (NotDetected); Candida glabrata Not Reported Not Detected (NotDetected); Candida krusei Not Reported Not Detected (NotDetected); Cneoformans/gatti Not Reported Not Detected (NotDetected); Cparapsilosis Not Reported Not Detected (NotDetected); Ctropicalis Not Reported Not Detected (NotDetected); E cloacae compx Not Reported Not Detected (NotDetected); Efaecalis Not Reported Not Detected (NotDetected); Efaecium Not Reported Not Detected (NotDetected); Enterobacterales Not Reported DETECTED (NotDetected); Escherichia coli Not Reported Not Detected (NotDetected); H influenzae Not Reported Not Detected (NotDetected); IMP Resistant Gene Not Detected (NotDetected); K aerogenes Not Reported Not Detected (NotDetected); KPC Resistant Gene Not Detected (NotDetected); Klebsiella pneumoniae group DETECTED (NotDetected); Koxytoca Not Reported Not Detected (NotDetected); Kpneumoniae grp Not Reported DETECTED (NotDetected); Lmonocyt Not Reported Not Detected (NotDetected); N meningitidis Not Reported Not Detected (NotDetected); NDM Resistant Gene Not Detected (NotDetected); OXA 48 Like Resistant Gene Not Detected (NotDetected); P aeruginosa Not Reported Not Detected (NotDetected); Proteus spp Not Reported Not Detected (NotDetected); Salmonella spp Not Reported Not Detected (NotDetected); Staph lugdunensis Not Reported Not Detected (NotDetected); Staph spp. Not Reported Not Detected (NotDetected); Staphaureus Not Reported Not Detected (NotDetected); Staphepi Not Reported Not Detected (NotDetected); Stenmaltophilia Not Reported Not Detected (NotDetected); Strep agal(GrpB) Not Reported Not Detected (NotDetected); Strep pneum Not Reported Not Detected (NotDetected); Strep pyog (GrpA) Not Reported Not Detected (NotDetected); Strep spp Not Reported Not Detected (NotDetected); VIM Resistant Gene Not Detected (NotDetected); mcr-1 Colistin Resistant Gene Not Detected (NotDetected)
[2025-05-14 10:46] LABS: Enterobacterales DETECTED (NotDetected)
[2025-05-14] MEDS: SODIUM CHLORIDE 0.9% 1,000 ML IV SCH (12:37)
--- NOTE | 2025-05-14 13:20 | Hospitalist Progress Note ---
Date of Service May 14, 2025 Assessment & Plan (1) Transaminitis: Plan 69-year-old male PMHx alcohol use, elevated LFTs, alcoholic ketoacidosis, dyslipidemia, and HTN presenting for "shaking", weakness, and decreased intake over the past day on 05/14/2025. #Bacteremia of unknown etiology CBC without leukocytosis. BMP w/ mild hyponatremia of 134 LFTs now down-trending; TB 1.3, DB 0.3, AST/ALT 123/125, AP 102 - transaminitis workup neg including neg EBV, hep C, & tick panel. CTAP, Chest CT, CXR all unremarkable. Patient is also s/p lap choley per imaging. BC prelim showing gram negative bacilli (klebsiella pneumoniae). UC still pending. Continue IV Zosyn as patient seems to be improving. Continue IV fluids. Consider ID consult in the AM. #Hyponatremia In setting of hyperglycemia. Na 134, glucose 177; Corrected 136 Trend BMP am #HTN- Lisinopril - continue #Back pain- Oxycodone prn ( is on Percocet outpatient) Recent steroid injection this past week. Has hx of spinal fusion. #HLD- Rosuvastatin - hold given transaminitis Dispo: Obs, med/sx VTE Prophylaxis: SCDs, Lovenox Admission and Anticipated Discharge Date Admission Date: May 14, 2025 Mignon Key was seen & examined this morning. He reports to be feeling better today. Denies abdominal pain, chest pain, N/V, or urinary symptoms. Physical Exam Physical Exam: General: NAD, VS: BP 96/65; P62; R18; T36.8C Resp: normal respiratory effort, lungs clear to auscultation CV: RRR, no murmur Abd: normal bowel sounds, non tender Extremities: Moves all extremities, no edema Neuro: A&O x3, Skin: intact, no lesions noted Results & Data Results & Data Vital Signs (Past 12 Hours) Vital Signs Temp Pulse Pulse Resp BP BP Pulse Ox 05/14/25 10:31 36.4 C L 59 L 12 96/65 L 96 05/14/25 07:38 63 05/14/25 05:00 52 L 16 119/67 05/14/25 04:00 58 L 18 103/65 05/14/25 03:30 83 17 108/72 05/14/25 02:45 76 17 102/68 05/14/25 02:30 74 18 108/72 93 05/14/25 02:15 81 19 110/65 05/14/25 01:28 88 05/14/25 01:26 37.1 C O2 Del Method 05/14/25 10:31 Room Air 05/14/25 07:38 05/14/25 05:00 05/14/25 04:00 05/14/25 03:30 05/14/25 02:45 05/14/25 02:30 05/14/25 02:15 05/14/25 01:28 05/14/25 01:26 PG Care Time/CCT Total # of Minutes Spent Total Time Spent with Patient: Total time spent is greater than 50% in coordination of care (as documented) at patient's floor/unit and/or counseling patient: Coding Level of Care Code None Diagnoses Transaminitis R74.0
[2025-05-14] MEDS: POLYETHYLENE (MIRALAX) 17 GM PACK PO PRN (14:22)
--- NOTE | 2025-05-14 14:51 | CT Scan Report ---
EXAM: CT Chest Without Intravenous Contrast INDICATION: Gram-negative bacteremia. TECHNIQUE: Axial computed tomography images of the chest without intravenous contrast. Sagittal and coronal reformatted images were created and reviewed. This CT exam was performed using one or more of the following dose reduction techniques: automated exposure control, adjustment of the mA and/or kV according to patient size, and/or use of iterative reconstruction technique. COMPARISON: 01/31/2019 FINDINGS: Limitations: None. Lungs and pleural spaces: Granulomas noted in the left lower lobe. Lungs otherwise clear. No bronchiectasis or honeycombing. No pleural effusion or pneumothorax. No mass. Heart: No abnormality noted. Thyroid: No abnormality noted. Bones/joints: Degenerative changes noted throughout the spine. No acute osseous abnormality seen. Soft tissues: No acute abnormality noted. Vasculature: Atherosclerotic calcification of the aorta and branches. No aneurysm. Lymph nodes: Granulomatous lymph nodes in the left hilum. IMPRESSION: No acute findings in the chest. ACT 112: N/A Electronically signed by Megan Hernandez 05-14-2025 2:50 PM
--- NOTE | 2025-05-14 18:47 | Communication Note ---
Date of Service: May 14, 2025 Unknown source of Klebsiella pneumoniae bacteremia - typically biliary, urine or pulmonary source for this bacteria Chest CT negative for pneumonia LFTs/bili mildly elevated and improving, no RUQ pain, hx cholecystectomy - ordered MRCP r/o choledocholithiasis UA unimpressive, UCx pending He has bilateral TKA and recent orthopedic steroid injection. Interestingly he had an episode of E. coli bacteremia of unknown source despite extensive workup in 2019. Had CT imaging, MRCP, portal venous ultrasound and EGD/colo with no convincing source found. Continue IV antibiotics, ID consult tomorrow unless source apparent on MRCP
[2025-05-14] MEDS: ENOXAPARIN INJ 40 MG/0.4 ML SYR SQ SCH (19:59)
[2025-05-14] MEDS: MELATONIN 3 MG TAB PO PRN (21:06)
--- NOTE | 2025-05-14 22:02 | Magnetic Resonance Report ---
Exam(s): MRI MRCP EXAM: MR Abdomen Without Intravenous Contrast, MRCP Protocol CLINICAL HISTORY: Klebsiella bacteremia TECHNIQUE: Multiplanar magnetic resonance images of the abdomen without intravenous contrast using MRCP protocol. COMPARISON: CTA abdomen and pelvis 05/13/2025 FINDINGS: Bile ducts: The common bile duct is within normal limits measuring up to 7 mm without filling defect. Gallbladder: Cholecystectomy. Liver: Unremarkable as visualized. No visualized mass. Mild intrahepatic biliary ductal dilatation could relate to reservoir effect. Pancreas: The pancreatic duct is within normal limits. Spleen: Unremarkable. No splenomegaly. Adrenals: Unremarkable. No mass. Kidneys and ureters: Unremarkable. No hydronephrosis. Stomach and bowel: Unremarkable. No obstruction. IMPRESSION: No acute finding of the abdomen or pelvis. Electronically signed by: Deanna Au MD 05/14/25 22:02 PM
[2025-05-15 06:50] LABS: Hematocrit (blood only) 34.7 % (42.0-52.0); Hemoglobin 11.9 g/dL (14.0-18.0); Mean Corpuscular Hemoglobin 29.5 pg (25.0-34.0); Mean Corpuscular Volume 85.9 fL (80.0-100.0); Platelet Count 122 K/uL (130-400); RDW Standard Deviation 38.8 fL (36.4-46.3); Red Blood Count 4.04 M/uL (4.70-6.10); White Blood Count 6.82 K/ul (4.8-10.8)
[2025-05-15 07:08] LABS: Anion Gap 5.0 (3-11); Blood Urea Nitrogen 13.0 mg/dl (6-23); Calcium 8.3 mg/dl (8.6-10.3); Carbon Dioxide 26.0 mmol/L (21-32); Chloride 106.0 mmol/L (98-107); Creatinine Clr Calc Pharmacy 97.7 ml/min; Glucose 95.0 mg/dl (70-99(Fasting)); Potassium 4.1 mmol/L (3.5-5.1); Sodium 137.0 mmol/L (136-145)
--- NOTE | 2025-05-15 08:18 | Hospitalist Progress Note ---
Date of Service May 15, 2025 Assessment & Plan (1) Bacteremia due to Gram-negative bacteria: Plan 69-year-old male PMHx alcohol use, elevated LFTs, alcoholic ketoacidosis, dyslipidemia, and HTN presenting for "shaking", weakness, and decreased intake over the past day on 05/14/2025. #Klebsiella Bacteremia of unknown etiology CBC without leukocytosis. Ct imaging without suspicion of infectious source LFTs now down-trending; TB 1.3, DB 0.3, AST/ALT 123/125, AP 102 - transaminitis workup neg including neg EBV, hep C, & tick panel. MRCP negative for choledocholithiasis UC less than 1000 colonies with Klebsiella transition to Rocephin with gram negative bacteremia, goal to treat for one week #Pseudo Hyponatremia In setting of hyperglycemia. Na 134, glucose 177; Corrected 136 #HTN- controlled and stable, Lisinopril - continue #Back pain- Oxycodone prn ( is on Percocet outpatient) Recent steroid injection this past week. Has hx of spinal fusion.) #HLD- Rosuvastatin - hold given transaminitis VTE Prophylaxis: SCDs, Lovenox Admission and Anticipated Discharge Date Admission Date: May 14, 2025 Subjective pt feeling improved, has some pre hospital back pain, not worsened since outpt injection Physical Exam Physical Exam: pleasant no distress no radicular back pain no abdominal pain Results & Data Results & Data Vital Signs (Past 12 Hours) Vital Signs Temp Pulse Pulse Resp BP BP Pulse Ox 05/15/25 07:55 05/15/25 07:21 98.1 F 54 L 16 113/69 93 05/14/25 23:00 97.7 F 60 16 111/73 97 O2 Del Method 05/15/25 07:55 Room Air 05/15/25 07:21 Room Air 05/14/25 23:00 Room Air Laboratory Results review cbc review chemistry PG Care Time/CCT Total # of Minutes Spent Total Time Spent with Patient: Total time spent is greater than 50% in coordination of care (as documented) at patient's floor/unit and/or counseling patient: Coding Level of Care Code 08847 SUB INP/OBS CARE 2/35MIN Diagnoses Bacteremia due to Gram-negative bacteria R78.81
--- NOTE | 2025-05-15 10:55 | Electrocardiogram Report ---
Test Reason : Blood Pressure : */* mmHG Vent. Rate : 126 BPM Atrial Rate : 126 BPM P-R Int : 158 ms QRS Dur : 80 ms QT Int : 288 ms P-R-T Axes : 51 56 73 degrees QTcB Int : 417 ms Sinus tachycardia with Fusion complexes Otherwise normal ECG When compared with ECG of 22-Nov-2024 10:55, Fusion complexes are now Present Vent. rate has increased by [address] no longer elevated in Lateral leads Confirmed by Ana Horne (Nadya) on 05/15/2025 10:55:22 AM Referred By: REFERRED SELF Confirmed By: Ana Horne
[2025-05-15] MEDS: cefTRIAXone SODIUM 2,000 MG/50 ML BAG IV SCH (12:46)
[2025-05-16 07:20] VITALS: BP 110/68; PULSE 57; RESP 16; TEMP 98.2; O2SAT 95
[2025-05-16 11:02] LABS: Hepatitis A Antibody IgM NON-REACTIVE (NON-REACTIVE); Hepatitis B Core Antibody IgM NON-REACTIVE (NON-REACTIVE)
--- NOTE | 2025-05-16 15:48 | Discharge Summary ---
Discharge Summary Date of Service May 16, 2025 Principal Dx & Hospital Course #1 = Principal Diagnosis (1) Bacteremia due to Gram-negative bacteria: Plan 69-year-old male PMHx alcohol use, elevated LFTs, alcoholic ketoacidosis, dyslipidemia, and HTN presenting for "shaking", weakness, and decreased intake over the past day on 05/14/2025. #Klebsiella Bacteremia of unknown etiology CBC without leukocytosis. Ct imaging without suspicion of infectious source LFTs now down-trending; TB 1.3, DB 0.3, AST/ALT 123/125, AP 102 - transaminitis workup neg including neg EBV, hep C, & tick panel. MRCP negative for choledocholithiasis UC less than 1000 colonies with Klebsiella this is sensitive to cipro, will complete 7 days course, source unclear maybe bowel with recent constipation #Pseudo Hyponatremia- resolved In setting of hyperglycemia. Na 134, glucose 177; Corrected 136 #HTN- controlled and stable, Lisinopril - continue #Back pain- Oxycodone prn ( is on Percocet outpatient) Recent steroid injection this past week. Has hx of spinal fusion.) #HLD- Rosuvastatin - resume at discharge Notes For Next Care Provider repeat LFT in about a month to Gauge if statin is responsible for LFT changes Admission HPI Per Admitting Provider 69-year-old male PMHx alcohol use, elevated LFTs, alcoholic ketoacidosis, dyslipidemia, and HTN presenting for "shaking", weakness, and decreased intake over the past day. When asked how he feels, patient states "hell of a lot better." States also that he "does not drink." Reports that over the past 2 days [employer] he has just had a decreased appetite, not eating or drinking much. He does then state that he actually had a crab cake sandwich and nonalcoholic egg melon prior to coming into the hospital, but this has been the most food he has eaten over the past few days. He states the night [employer] he had full body trembling that did not appear to cease on its own. He also has some nausea without vomiting throughout the course of this episode. He has been taking Percocet since the Thursday [employer], approximately 3 pills/day but does not feel that this has been helping his back or leg pain. He reports that he has had chronic back and leg pain, having multiple MRIs for such. He is scheduled to have back surgery. Also reports that his brother is in the hospital when he visited him over a week [employer], reporting that his brother has "rare bacteria" but is unable to specify what this bacteria is. Patient states that at present, he feels better than he did previously. He denies chest pain, SOB, palpitations, abdominal pain, N/V/D/C, numbness/tingling, fever, URI symptoms, LUTS, weakness, syncope, or falls. His main concern was the full body shaking and being told he had had a fever. Denies alcohol use, states that he stopped drinking alcohol in July 2024, stating that he only had a few drinks on special occasions. These occasions include 18 November as well as better and stay which was in March. Denies any alcohol use since then. No other medication adjustments. Prior history of transaminitis, appears to be related to alcohol use at that time. ED evaluation reveals CBC without leukocytosis or leukopenia, H&H 14.5/41.6, stable platelets; CMP sodium 134, glucose 177, BUN/creatinine ratio 23.3, total bilirubin 1.7, direct bilirubin 0.3, AST 226, ALT 157, alkaline phosphatase 115; lipase 7; lactate 2.7, 1.4 on repeat; procalcitonin 0.48; UA negative for infection; BioFire negative; CXR WNL; CTAP no acute findings in the abdomen or pelvis.; Provided with 1L NSS, Zosyn 4.5 g IV, ibuprofen 80 mg p.o., and acetaminophen 1 g p.o. in ED. Please see Dr. Green's attestation for adjustments/additions to treatment plan. Discharge Exam pt has no complaints, moving well in bed agreeable to go home Discharge Plan Discharge Items Patient Disposition: Home - Self-Care Reason For Visit: TRANSAMINITIS Discharge Diagnosis: bacterial infection in blood stream Condition on Discharge: Good Activity: Resume your previous activity Non-emergency contact: Primary Care Provider and Surgeon Call non-emergency contact if: you have any medication questions and your symptoms worsen Follow-up/Referrals: Moris Phillips MD [Primary Care Provider] - 05/23/25 2:20 pm (Date & Time 05/23/2025 2:20 PM Provider: Moris Phillips MD [facility] [place] ) Diet: Regular Addtl Attending Provider Instructions: please complete all of your antibiotics please work to insure you do not develop constipation again, miralax or generic clearlax is a good laxative to use if you are also using pain medicine, to help prevent constipation. you may use natural laxatives also such as senna or even eat prunes or dates. Please be aware of your body and if you develop new painful areas have those evaluated by a health care provider Pending Studies at Discharge: No Stand-Alone Forms: My [facility] [employer], Smoking Cessation Medications and DC Order Prescriptions: New ciprofloxacin HCl [Cipro] 500 mg tablet 500 mg PO BID Qty: 11 0RF Rx Instructions: start in pm of 05/16/25 Continued lisinopril 30 mg tablet 30 mg PO DAILY rosuvastatin 5 mg tablet 5 mg PO DAILY oxycodone-acetaminophen 5-325 mg tablet 1 tab PO TID PRN (Reason: Pain) Discharge Orders: Discharge Order (Routine); Ordered 05/16/25 Ordered By: Justice Telles/Other Patient Handouts: When to Use Antibiotics Admission Data Admit Date/Time: 05/14/25 13:14 Attending Provider: Justice Burkett Admit Provider: Hanh Green Primary Care Provider: Moris Phillips Other Providers: Hanh Green Other Interventions: Discharge Summary Assessment (RN) Last Done: 05/16/25 12:05 Hospital Stay Data Consultations 05/14/25 00:27 ED Decision to Admit Stat Diagnostic Imagining Performed 05/13/25 22:36 CT Abd and Pelvis [CT abd pelvis IV con only] Stat 05/14/25 13:14 CT chest diagnostic wo con Urgent 05/14/25 18:41 MR MRCP Urgent Pending Results Patient Have Any Pending Studies at Discharge: No Discharge Instructions Given to Patient (Per Discharging Provider) please complete all of your antibiotics please work to insure you do not develop constipation again, miralax or generic clearlax is a good laxative to use if you are also using pain medicine, to help prevent constipation. you may use natural laxatives also such as senna or even eat prunes or dates. Please be aware of your body and if you develop new painful areas have those evaluated by a health care provider Total Time Total Time Spent Total Time Spent (In Minutes): I personally have spent greater than 30 minutes of time on the patient discharge today including review of tests, documentation, exam, and discussing treatment plan moving forward with the patient. Coding Level of Care Code 50665 INP/OBS DISCH >30 MIN Diagnoses Bacteremia due to Gram-negative bacteria R78.81
== END 2025-05-16 13:27 | disposition home or self-care (01) | DRG 872 ==
LOC: ED 21:19 → EDINP 21:19 → SUATTDRO 05-14 01:07 → 3E 05-14 02:33 → SUATTDRO 05-14 13:14 → 3E 05-14 13:50